=== PATIENT | female | born 1950 | race Caucasian/White ===

== ENCOUNTER → 2020-06-04 10:08 | Outpatient (BNVA) | payer MEDICARE, SELFPAY | PROVIDERS: PCP Family Medicine; Visit Provider Surgery | DX: Z01.812 Encounter for preprocedural laboratory examination (principal); Z12.11 Encounter for screening for malignant neoplasm of colon | CPT/HCPCS: 87635 ==

== ENCOUNTER 2020-06-09 07:19 | Day surgery (SDC) | payer MEDICARE, SELFPAY ==
[2020-06-05 13:34] VITALS: BMI 34.8
--- NOTE | 2020-06-09 07:40 | P.HP_ITS ---
Same Day Surgery H&P Indication for Procedure/HPI DATE OF PROCEDURE: June 09, 2020 CHIEF COMPLAINT/INDICATIONFOR SURGICAL PROCEDURE: Screening colonoscopy PREOP DIAGNOSIS: Screening colonoscopy PLANNED PROCEDRUE: Operation Date: 06/09/20 08:30 Proposed Procedures p Colonoscopy 09153 Z12.11(Not Applicable) - Buddy Mckenzie MD This is a pleasant 70 years old male referred to my practice for screening colonoscopy, patient reports that he had 4 colonoscopies before last one was about 8 years ago and he does give history of colon polyps in the past. He reports that he has some blood coming with his hemorrhoids but no history of colon cancer. Patient is referred to my practice for colonoscopy. ROS All systems have been reviewed negative except as per the above or per problem list Medications/Allergies* Home Medications Medication Instructions Recorded Confirmed Type apixaban 5 mg tablet 5 mg PO BID 06/02/20 06/05/20 History donepezil 10 mg tablet 10 mg PO DAILY 06/02/20 06/05/20 History glipizide 10 mg tablet 10 mg PO BID 06/02/20 06/05/20 History insulin glargine 100 unit/mL (3 60 unit SUBCUT BID ml 06/02/20 06/05/20 History mL) subcutaneous pen levothyroxine 112 mcg capsule 112 mcg PO DAILY 06/02/20 06/05/20 History lisinopril 10 mg tablet 10 mg PO DAILY 06/02/20 06/05/20 History metformin 500 mg tablet 500 mg PO BID 06/02/20 06/05/20 History testosterone cypionate 100 mg/mL 100 mg IM .2 Weeks ml 06/02/20 06/05/20 History intramuscular oil gabapentin 600 mg PO BID 06/05/20 06/05/20 History hydrochlorothiazide 25 mg PO DAILY 06/05/20 06/05/20 History rosuvastatin 10 mg PO DAILY 06/05/20 06/05/20 History Allergies/Adverse Reactions Allergy/AdvReac Type Severity Reaction Status Date / Time sulfamethoxazole Allergy Rash Verified 06/09/20 07:43 [From Bactrim] trimethoprim [From Bactrim] Allergy Rash Verified 06/09/20 07:43 Pertinent Exam Findings alert, oriented x 3, clear to auscultation bilaterally, regular rate & rhythm and procedure specific exam findings (Abdominal examination nontender nondistended soft, obese) Recommendations Surgery/Procedure today (Colonoscopy with possible biopsy and possible polypectomy) Other Plans: Plan of care; After thorough history and physical examination and reviewing the chart, plan to perform screening colonoscopy in the GI lab. I discussed with the patient in details the risks,benefits,alternatives and indications.The risk of aspiration, bleeding, soft tissue injury, perforation of the colon and other potential concomitant complications were explained to the patient in details.The patient understood this well and did agree to proceed. Rationale was carefully and clearly discussed with the patient.Appropriate informed consent have been reviewed and signed All questions have been answered and all concerns have been addressed to patient's satisfaction. Verbal and written Instructions were given to the patient for colonoscopy prep Coding Level of Care Code Acute [employer] for Laila Garbiay
[2020-06-09 07:45] VITALS: BP 139/78; PULSE 68; RESP 18; TEMP 36.3; O2SAT 98
[2020-06-09] MEDS: sodium chloride 0.9% 1,000 ML 30 ML IV (07:51)
[2020-06-09 08:03] LABS: Glucose Point of Care 196 mg/dL (70-110)
[2020-06-09 08:14] VITALS: BP 102/62; PULSE 72; RESP 18; TEMP 36.1; O2SAT 96
--- NOTE | 2020-06-09 08:33 | ANES.PREANE2 ---
Pre-Anesthetic Assessment Pre-Anesthetic Assessment: Height/Weight: Height 1.8 m Weight 113.398 kg Temp Pulse Resp BP Pulse Ox 97 F L 72 18 102/62 96 06/09/20 08:14 06/09/20 08:14 06/09/20 08:14 06/09/20 08:14 06/09/20 08:14 Preop Diagnosis: Screening colonoscopy Proposed Procedure: Operation Date: 06/09/20 08:30 Proposed Procedures p Colonoscopy 80932 Z12.11(Not Applicable) - Buddy Mckenzie MD Was Beta Araceli taken within 24 hours: N/A Last intake: Intake Last Liquid Date 06/08/20 Last Liquid Time 19:00 Last Solid Date 06/07/20 Social: Social History: No alcohol and No tobacco Exam: Pre-Anes Outpt Exam: alert, oriented x 3, clear to auscultation bilaterally and regular rate & rhythm Airway: Submandibular: WNL Cervical ROM: WNL MP: 3 Dentition: Full Pulmonary: Pulmonary: COPD and Sleep apnea Comments: Smokes cigars CV/HEM: CV/HEM: HTN Metabolic: Metabolic: DM, Morbid obesity and Thyroid Anesthetic Plan: ASA status: 3 Anesthesia: MAC Risk of > 500 ml blood loss (7ml/kg in children): No Meds/Allergies Current Medications: Current Medications Generic Name Dose Route Start Last Admin Trade Name Freq PRN Reason Stop Dose Admin Sodium Chloride 1,000 mls @ 30 ml s/hr 06/09/20 07:45 06/09/20 07:51 Sodium Chloride 0.9% IV 06/10/20 07:44 30 mls/hr .Q24H SABAS Administration Data Anesthesia Other Labs: Laboratory Results - last 48 hr 06/09/20 07:59 POC Glucose 196 H Cardiac Studies: No Data to Display
[2020-06-09 08:49] VITALS: BP 140/73; PULSE 70; RESP 16; TEMP 36.4; O2SAT 97
[2020-06-09 09:01] VITALS: BP 132/77; PULSE 57; RESP 16; O2SAT 95
--- NOTE | 2020-06-09 13:22 | ANE.PACU2 ---
Inpatient post-anesthesia follow up: Airway intact: Yes Vital signs: Temperature 97.6 F Pulse Rate 57 Respiratory Rate 16 Blood Pressure 132/77 Pulse Oximetry 95 Oxygen Delivery Me thod Room Air Oxygen Flow Rate Fraction of Inspir ed Oxygen Hydration adequate: Yes Nausea and vomiting: No Pain level: 1 Mental status: Baseline
== END 2020-06-09 09:25 | disposition home or self-care (01) ==
PROVIDERS: PCP Family Medicine; Visit Provider Surgery
PROC: 0DJD8ZZ Inspection of Lower Intestinal Tract, Via Natural or Artificial Opening Endoscopic (ICD-10-PCS; CPT 45378; principal; 2020-06-09 08:30)
DX: Z12.11 Encounter for screening for malignant neoplasm of colon (principal); Z86.010 Personal history of colon polyps; K57.30 Diverticulosis of large intestine without perforation or abscess without bleeding; D12.2 Benign neoplasm of ascending colon; D12.8 Benign neoplasm of rectum; J44.9 Chronic obstructive pulmonary disease, unspecified; G47.30 Sleep apnea, unspecified; I10 Essential (primary) hypertension; E11.9 Type 2 diabetes mellitus without complications; E66.01 Morbid (severe) obesity due to excess calories; Z68.34 Body mass index [BMI] 34.0-34.9, adult
CPT/HCPCS: 12345; 36416; 45380; 82962; 88305; J2704; J7030

== ENCOUNTER 2020-07-28 06:53 | Outpatient (CLI) | payer MEDICARE, SELFPAY ==
--- NOTE | 2020-07-28 07:09 | US_ITS ---
WS: [id number] ULTRASOUND RENAL TECHNIQUE: Ultrasound examination of both kidneys. CLINICAL INFORMATION: RIGHT FLANK PAIN COMPARISON: None. FINDINGS: RIGHT: Right kidney is normal in size and appearance. Echogenicity: Normal. Cortical thickness: 1.9 cm; Normal. Hydronephrosis: None. Perinephric fluid: None. Right kidney measures: 14.5 cm x 4.5 cm x 5.6 cm. LEFT: Left kidney is normal in size and appearance. Echogenicity: Normal. Cortical thickness: 1.3 cm; Normal. Hydronephrosis: None. Perinephric fluid: None. Left kidney measures: 13.9 cm x 6.2 cm x 4.1 cm. Normal visualized aorta. Bladder decompressed. Prostate measures 4.2 x 4.3 x 3.3 cm US/US renal BI* [id number] IMPRESSION: 1. Normal renal ultrasound. 2. Enlarged prostate. Recommend correlation PSA.
== END 2020-07-28 06:54 | disposition home or self-care (01) ==
LOC: RAD 07:05
PROVIDERS: PCP Family Medicine; Visit Provider Registered Nurse
DX: R10.9 Unspecified abdominal pain (principal); N40.0 Benign prostatic hyperplasia without lower urinary tract symptoms
CPT/HCPCS: 76770; 76857

== ENCOUNTER 2020-07-29 13:39 | Observation (INO) | payer MEDICARE, SELFPAY ==
[2020-07-29] VITALS (11 sets, daily range): BP systolic 122–158; BP diastolic 58–85; PULSE 78–130; RESP 13–25; TEMP 37.3–37.6; O2SAT 93–99; BMI 36.5
--- NOTE | 2020-07-29 13:41 | XR_ITS ---
WS: [id number] XR chest 1V portable [id number] REASON FOR EXAM: chest pain FINDINGS: Mild tortuosity of the thoracic aorta without aneurysmal dilatation. Normal heart size. Calcified granulomatous changes in both hemithoraces. No active pulmonary parenchymal or pleural disease. Degenerative changes in the right shoulder joint and mid and lower thoracic spine. XR/XR chest 1V portable [id number] IMPRESSION: No acute chest abnormality.
--- NOTE | 2020-07-29 13:41 | ECG_ITS ---
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 Measurements Intervals [place] Rate: 103 P: 61 DC: 174 QRS: 0 QRSD: 94 T: 76 QT: 331 QTc: 434 Interpretive Statements SINUS TACHYCARDIA NONSPECIFIC T-WAVE ABNORMALITY ABNORMAL RHYTHM ECG No previous ECG available for comparison Electronically Signed On 07-30-2020 7:35:41 CDT by Rena Silver M.D. [email or web address]
--- NOTE | 2020-07-29 14:00 | ED_ITS ---
Documented by User: DANIELLE Vargas 07/30/20 07:13 HPI - Arrhythmia/Palpitations General: Chief Complaint: Arrhythmia/Palpitations Stated Complaint: CP, HEART PALPITATIONS, NAUSEA, DIZZY, SWEATING Time Seen by Provider: 07/29/20 13:47 Source: patient Mode of arrival: ambulatory Limitations: no limitations History of Present Illness: HPI narrative: Patient is a nice 70-year-old male with a history of HTN, DM, hypothyroidism, hyperlipidemia, low testosterone currently on TRT, and known left lower extremity DVT currently on Eliquis here for complaints of nausea and lightheadedness and palpitations. Patient tells me he woke up this morning and did not feel well. He tells me he felt incredibly nauseous and lightheaded. He did not check his blood sugar at that time. 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 He tells me symptoms improved after he sat down and rested. Patient denies any previous cardiac history. He tells me had a stress test in January 2020 in [place], [place] that was normal. Patient denies chest pain or chest pressure. He tells me he does not currently feel short of breath. MD complaint: rapid heart beat, heart racing and palpitations Onset (ago): hour(s) Duration: now resolved Severity: moderate Context: occurred during exertion Arrhythmia history: on anti-coagulants Associated symptoms: Reports nausea; Deny pre-syncope, syncope or vomiting Review of Systems Const: Denies: fever(s), chills, body aches, fatigue or malaise Eyes: Denies: change in vision or blurry vision Card: Reports: palpitations, swelling of feet/ankles (chronic-at baseline per patient), lightheadedness and dyspnea on exertion; Denies: chest pain, irregular heart rhythm, syncope, pre-syncope, orthopnea, leg pain with exertion or acrocyanosis Resp: Reports: dyspnea; Denies: productive cough, non-productive cough, wheezing, pain on inspiration, change in phlegm color, hemoptysis or chest congestion GI: Reports: nausea; Denies: abdominal pain, vomiting or diarrhea : Denies: flank pain, difficulty urinating or dysuria Musc: Denies: neck pain, back pain or joint pain Skin/Breast: Denies: rash Neuro: Denies: headache(s), numbness in extremities, weakness in extremities, sensory changes, difficulty walking, dizziness, confusion or Slurred speech present [facility] ED PFSH: Medical History (Updated 07/29/20 @ 22:20 by John Maza MD) Colon polyps Social History (Updated 07/23/20 @ 13:21 by Mi Sierra LPN) Smoking and tobacco status: current every day smoker Alcohol intake: former Physical Exam Const: COMMON NORMALS: patient oriented x3, no limitations and alert GENERAL APPEARANCE: cooperative NUTRITIONAL APPEARANCE: obese ORIENTATION/CONSCIOUSNESS: Yes awake, Yes oriented to person, Yes oriented to place and Yes oriented to time OTHER: looks like he doesn't feel well HENMT: COMMON NORMALS: normocephalic and atraumatic HEAD & SCALP: normocephalic and atraumatic Eye: COMMON NORMALS: Equal, round and reactive pupils present and EOMs intact bilaterally GENERAL EYE: appearance normal, both eyes and all related structures PUPIL: Yes Equal, round and reactive pupils present Resp: COMMON NORMALS: normal respiratory effort and clear to auscultation bilaterally AUSCULTATION: clear to auscultation bilaterally Cardio: COMMON NORMALS: regular rate and regular rhythm RATE: regular rate RHYTHM: regular rhythm GI: COMMON NORMALS: Normal to inspection, nondistended, normoactive bowel sounds present, Soft to palpation, non-tender, No hepatosplenomegaly present and no masses PALPATION: Yes Soft to palpation and Yes No hepatosplenomegaly present Extremity: COMMON NORMALS: normal to inspection NARRATIVE EXTREMITY EXAM: very mild bilateral LE edema; mild tenderness to L calf at area of known DVT GENERAL: Yes normal exam except as noted Neuro: ANN COMA SCALE: document GCS findings Ann coma scale eye opening: Spontaneous Ann coma scale verbal response: Orientated Ann coma scale motor response: Obey commands [place] coma scale total score: 15 COMMON NORMALS: patient oriented x3 SENSORIUM/ORIENTATION: Yes alert, Yes oriented to person, Yes oriented to place and Yes oriented to time Skin: COMMON NORMALS: no rashes or lesions noted GENERAL SKIN EXAM: no rashes or lesions noted Course ED course: Incident report filed at baseline troponin was not ran until several hours into his visit and a long time after all other labs had returned. Vital Signs: Vital signs: Vital Signs Temperature 100.0 F H 07/30/20 03:35 Pulse Rate 78 07/30/20 06:34 Respiratory Rate 20 H 07/30/20 03:35 Blood Pressure 114/66 07/30/20 03:35 Pulse Oximetry 95 07/30/20 06:34 MDM - Arrhythmia/Palpitations MDM Narrative: Medical decision making narrative: Patient presented here today with complaints of nausea, lightheadedness, and an episode of shortness of breath and palpitations that happened at work with exertion. Patient does have significant risk factors of DM, HTN, and obesity. CTA imaging was obtained based on known left lower extremity DVT. This was negative for a PE. Baseline troponin is elevated. Pending repeat trop. EKGs do not show any ischemic changes. He has mild elevations to his BUN/Cr. He has been tachycardic during his stay. Low-grade fevers. Care will be transferred to Dr. Maza at the end of my shift pending remainder of work-up. I think patient would benefit from coming into the hospital at this time. Lab Data: Labs: Lab Results 07/29/20 07/29/20 07/29/20 Range/Units 14:08 14:08 14:08 WBC 11.0 H (4.0-10.0) 10^3/ uL RBC 4.71 (4.1-5.3) 10^6/u L Hgb 14.6 (11.7-16.6) g/dL Hct 43.2 (42.0-52.0) % MCV 91.7 (80-94) fL MCH 31.0 (28.0-34.0) pg MCHC 33.8 (30.0-36.0) g/dL RDW 11.9 L (12.1-15.1) % Plt Count 201 (130-400) 10^3/c mm MPV 10.5 H (7.4-10.4) fL Neut % (Auto) 90.6 % Lymph % (Auto) 3.1 % [place] % (Auto) 4.9 % Eos % (Auto) 0.7 % Baso % (Auto) 0.3 % Neut # (Auto) 9.94 H (1.8-7.7) 10^3/u L Lymph # (Auto) 0.3 L (0.8-4.8) 10^3/u L [place] # (Auto) 0.5 (0.2-0.9) 10^3/u L Eos # (Auto) 0.1 (0.0-0.8) 10^3/u L Baso # (Auto) 0.0 (0.0-0.1) 10^3/u L Nucleated RBC % (a uto) 0 % Nucleated RBCs # 0.0 /100WBC Sodium Cancelled Potassium Cancelled Chloride Cancelled Carbon Dioxide Cancelled Anion Gap Cancelled BUN Cancelled Creatinine Cancelled GFR Calculation Cancelled Glucose Cancelled Calculated Osmolal ity Cancelled Lactic Acid Calcium Cancelled Total Bilirubin Cancelled AST Cancelled ALT Cancelled Alkaline Phosphata se Cancelled Creatine Kinase (39-308) U/L Troponin T Baselin e Cancelled Troponin T 120 Min tangirnaq (0-15) ng/L Delta Troponin T (0-10) ABS# Troponin T Hi Sens 6Hr (0-15) ng/L Troponin T Hi Sens 6Hr Delta (0-12) ng/L NT-Pro-B Natriuret Pep Cancelled Total Protein Cancelled Albumin Cancelled Globulin Cancelled Lipase (13-60) U/L TSH Cancelled Urine Color (Yellow) Urine Appearance (CLEAR) Urine pH (5-7) Ur Specific Gravit y (1.005-1.030) Urine Protein (Negative) Urine Glucose (UA) (Normal) Urine Ketones (Negative) Urine Blood (Negative) Urine Nitrate (Negative) Urine Bilirubin (Negative) Urine Urobilinogen (Negative) mg/dL Ur Leukocyte Willow ase (Negative) Serum Ketones (Negative) SARS-CoV-2 Ag (Rap id) (Negative) 07/29/20 07/29/20 07/29/20 Range/Units 14:08 14:10 14:15 WBC (4.0-10.0) 10^3/ uL RBC (4.1-5.3) 10^6/u L Hgb (11.7-16.6) g/dL Hct (42.0-52.0) % MCV (80-94) fL MCH (28.0-34.0) pg MCHC (30.0-36.0) g/dL RDW (12.1-15.1) % Plt Count (130-400) 10^3/c mm MPV (7.4-10.4) fL Neut % (Auto) % Lymph % (Auto) % [place] % (Auto) % Eos % (Auto) % Baso % (Auto) % Neut # (Auto) (1.8-7.7) 10^3/u L Lymph # (Auto) (0.8-4.8) 10^3/u L [place] # (Auto) (0.2-0.9) 10^3/u L Eos # (Auto) (0.0-0.8) 10^3/u L Baso # (Auto) (0.0-0.1) 10^3/u L Nucleated RBC % (a uto) % Nucleated RBCs # /100WBC Sodium Potassium Chloride Carbon Dioxide Anion Gap BUN Creatinine GFR Calculation Glucose Calculated Osmolal ity Lactic Acid Cancelled 1.9 Calcium Total Bilirubin AST ALT Alkaline Phosphata se Creatine Kinase (39-308) U/L Troponin T Baselin e Troponin T 120 Min tangirnaq (0-15) ng/L Delta Troponin T (0-10) ABS# Troponin T Hi Sens 6Hr (0-15) ng/L Troponin T Hi Sens 6Hr Delta (0-12) ng/L NT-Pro-B Natriuret Pep Total Protein Albumin Globulin Lipase (13-60) U/L TSH Urine Color (Yellow) Urine Appearance (CLEAR) Urine pH (5-7) Ur Specific Gravit y (1.005-1.030) Urine Protein (Negative) Urine Glucose (UA) (Normal) Urine Ketones (Negative) Urine Blood (Negative) Urine Nitrate (Negative) Urine Bilirubin (Negative) Urine Urobilinogen (Negative) mg/dL Ur Leukocyte Willow ase (Negative) Serum Ketones (Negative) SARS-CoV-2 Ag (Rap id) Negative (Negative) 07/29/20 07/29/20 07/29/20 Range/Units 14:30 14:30 17:00 WBC (4.0-10.0) 10^3/ uL RBC (4.1-5.3) 10^6/u L Hgb (11.7-16.6) g/dL Hct (42.0-52.0) % MCV (80-94) fL MCH (28.0-34.0) pg MCHC (30.0-36.0) g/dL RDW (12.1-15.1) % Plt Count (130-400) 10^3/c mm MPV (7.4-10.4) fL Neut % (Auto) % Lymph % (Auto) % [place] % (Auto) % Eos % (Auto) % Baso % (Auto) % Neut # (Auto) (1.8-7.7) 10^3/u L Lymph # (Auto) (0.8-4.8) 10^3/u L [place] # (Auto) (0.2-0.9) 10^3/u L Eos # (Auto) (0.0-0.8) 10^3/u L Baso # (Auto) (0.0-0.1) 10^3/u L Nucleated RBC % (a uto) % Nucleated RBCs # /100WBC Sodium 133 L Potassium 4.7 Chloride 95 L Carbon Dioxide 25 Anion Gap 17.7 BUN 21 Creatinine 1.3 H GFR Calculation 54.7 L Glucose 238 H Calculated Osmolal ity 287 Lactic Acid Calcium 9.1 Total Bilirubin 0.6 AST 46 H ALT 73 H Alkaline Phosphata se 72 Creatine Kinase (39-308) U/L Troponin T Baselin e 21 H Troponin T 120 Min tangirnaq 20.94 H (0-15) ng/L Delta Troponin T -0.06 L (0-10) ABS# Troponin T Hi Sens 6Hr (0-15) ng/L Troponin T Hi Sens 6Hr Delta (0-12) ng/L NT-Pro-B Natriuret Pep 17 Total Protein 7.3 Albumin 4.4 Globulin 2.9 Lipase (13-60) U/L TSH 0.79 Urine Color (Yellow) Urine Appearance (CLEAR) Urine pH (5-7) Ur Specific Gravit y (1.005-1.030) Urine Protein (Negative) Urine Glucose (UA) (Normal) Urine Ketones (Negative) Urine Blood (Negative) Urine Nitrate (Negative) Urine Bilirubin (Negative) Urine Urobilinogen (Negative) mg/dL Ur Leukocyte Willow ase (Negative) Serum Ketones (Negative) SARS-CoV-2 Ag (Rap id) (Negative) 07/29/20 07/29/20 07/29/20 Range/Units 17:00 17:00 17:50 WBC (4.0-10.0) 10^3/ uL RBC (4.1-5.3) 10^6/u L Hgb (11.7-16.6) g/dL Hct (42.0-52.0) % MCV (80-94) fL MCH (28.0-34.0) pg MCHC (30.0-36.0) g/dL RDW (12.1-15.1) % Plt Count (130-400) 10^3/c mm MPV (7.4-10.4) fL Neut % (Auto) % Lymph % (Auto) % [place] % (Auto) % Eos % (Auto) % Baso % (Auto) % Neut # (Auto) (1.8-7.7) 10^3/u L Lymph # (Auto) (0.8-4.8) 10^3/u L [place] # (Auto) (0.2-0.9) 10^3/u L Eos # (Auto) (0.0-0.8) 10^3/u L Baso # (Auto) (0.0-0.1) 10^3/u L Nucleated RBC % (a uto) % Nucleated RBCs # /100WBC Sodium Potassium Chloride Carbon Dioxide Anion Gap BUN Creatinine GFR Calculation Glucose Calculated Osmolal ity Lactic Acid Calcium Total Bilirubin AST ALT Alkaline Phosphata se Creatine Kinase (39-308) U/L Troponin T Baselin e Troponin T 120 Min tangirnaq (0-15) ng/L Delta Troponin T (0-10) ABS# Troponin T Hi Sens 6Hr (0-15) ng/L Troponin T Hi Sens 6Hr Delta (0-12) ng/L NT-Pro-B Natriuret Pep Total Protein Albumin Globulin Lipase 17 (13-60) U/L TSH Urine Color Gwen (Yellow) Urine Appearance Clear (CLEAR) Urine pH 5 (5-7) Ur Specific Gravit y 1.020 (1.005-1.030) Urine Protein Neg (Negative) Urine Glucose (UA) 2+ (Normal) Urine Ketones 1+ H (Negative) Urine Blood Neg (Negative) Urine Nitrate Negative (Negative) Urine Bilirubin 1+ H (Negative) Urine Urobilinogen 1 H (Negative) mg/dL Ur Leukocyte Willow ase Negative (Negative) Serum Ketones Negative (Negative) SARS-CoV-2 Ag (Rap id) (Negative) 07/29/20 07/29/20 Range/Units 20:37 20:37 WBC (4.0-10.0) 10^3/ uL RBC (4.1-5.3) 10^6/u L Hgb (11.7-16.6) g/dL Hct (42.0-52.0) % MCV (80-94) fL MCH (28.0-34.0) pg MCHC (30.0-36.0) g/dL RDW (12.1-15.1) % Plt Count (130-400) 10^3/c mm MPV (7.4-10.4) fL Neut % (Auto) % Lymph % (Auto) % [place] % (Auto) % Eos % (Auto) % Baso % (Auto) % Neut # (Auto) (1.8-7.7) 10^3/u L Lymph # (Auto) (0.8-4.8) 10^3/u L [place] # (Auto) (0.2-0.9) 10^3/u L Eos # (Auto) (0.0-0.8) 10^3/u L Baso # (Auto) (0.0-0.1) 10^3/u L Nucleated RBC % (a uto) % Nucleated RBCs # /100WBC Sodium Potassium Chloride Carbon Dioxide Anion Gap BUN Creatinine GFR Calculation Glucose Calculated Osmolal ity Lactic Acid Calcium Total Bilirubin AST ALT Alkaline Phosphata se Creatine Kinase 410 H* (39-308) U/L Troponin T Baselin e Troponin T 120 Min tangirnaq (0-15) ng/L Delta Troponin T (0-10) ABS# Troponin T Hi Sens 6Hr 18.92 H (0-15) ng/L Troponin T Hi Sens 6Hr Delta -2.08 L (0-12) ng/L NT-Pro-B Natriuret Pep Total Protein Albumin Globulin Lipase (13-60) U/L TSH Urine Color (Yellow) Urine Appearance (CLEAR) Urine pH (5-7) Ur Specific Gravit y (1.005-1.030) Urine Protein (Negative) Urine Glucose (UA) (Normal) Urine Ketones (Negative) Urine Blood (Negative) Urine Nitrate (Negative) Urine Bilirubin (Negative) Urine Urobilinogen (Negative) mg/dL Ur Leukocyte Willow ase (Negative) Serum Ketones (Negative) SARS-CoV-2 Ag (Rap id) (Negative) Imaging Data^: CXR: Radiologist's impression: [address] [address] XRay Report Signed Patient: Bill PatelUnit #: [id number] : 1950cct#:[id number] Age/Sex: 70 / MADM Date: 07/29/20 Loc: ERRoom/Bed: Attending Dr: Ordering Provider/Ordering MD: Atiya Rich Date of Service: 07/29/20 Procedure(s): XR chest 1V portable [id number] Accession Number(s): [id number] Report Number: [id number] WS: [id number] XR chest 1V portable [id number] REASON FOR EXAM: chest pain FINDINGS: Mild tortuosity of the thoracic aorta without aneurysmal dilatation. Normal heart size. Calcified granulomatous changes in both hemithoraces. No active pulmonary parenchymal or pleural disease. Degenerative changes in the right shoulder joint and mid and lower thoracic spine. XR/XR chest 1V portable [id number] IMPRESSION: No acute chest abnormality. Dictated By:Alexander Pelaez Jr, MD Signed By:Alexander Pelaez Jr MDSigned Date/Time:07/29/20 1423 DD/ 1419 CTA Chest: Radiologist's impression: [address] [address] [address] Scan Report Signed Patient: Bill Patel Unit #: [id number] : 1950 Age/Sex: 70 / M ADM Date: 07/29/20 Loc: ER Room/Bed: Attending Dr: Ordering Provider/Ordering MD: Atiya Rich Date of Service: 07/29/20 Procedure(s): CT angio chest PE protcl [id number] Accession Number(s): [id number] Report Number: [id number] PROCEDURE INFORMATION: Exam: CT Angiography Chest With Contrast Exam date and time: 07/29/2020 4:15 PM Age: 70 years old Clinical indication: Shortness of breath; Additional info: Sob/tachcardia/known dvt TECHNIQUE: Imaging protocol: Computed tomographic angiography of the chest with contrast. 3D rendering (Not supervised by radiologist): MIP and/or 3D reconstructed images were created by the technologist. Radiation optimization: All CT scans at this facility use at least one of these dose optimization techniques: automated exposure control; mA and/or kV adjustment per patient size (includes targeted exams where dose is matched to clinical indication); or iterative reconstruction. Contrast material: VISI 320; Contrast volume: 68 ml; Contrast route: INTRAVENOUS (IV); COMPARISON: CR XR chest 1V portable [id number] 07/29/2020 1:57 PM RADIATION DOSE METRICS: Total DLP (mGy-cm): 575.39 FINDINGS: Pulmonary arteries: Normal. No pulmonary emboli. Aorta: Unremarkable. No aortic aneurysm. No aortic dissection. Lungs: Unremarkable. No consolidation. No masses. Pleural spaces: Unremarkable. No pneumothorax. No pleural effusion. Heart: Unremarkable. No cardiomegaly. No pericardial effusion. Lymph nodes: Unremarkable. No enlarged lymph nodes. Bones/joints: Unremarkable. No acute fracture. Soft tissues: Unremarkable. CT/CT angio chest PE protcl [id number] IMPRESSION: No acute findings. Radiation Dose CTDIVOL = (mGy): DLP = 575.39 (mGy-cm) Dictated By: Antoni Louis Signed By: Antoni Louis Signed Date/Time: 07/29/201655 DD/ 53 EKG Data^: EKG 1: EKG interpretation date: 07/29/20 EKG interpretation time: 13:50 Interpretation: Sinus tachycardia Rate [address] elevation or depression changes noted Also reviewed by Dr. Maza Other EKG comments: Chest X-Ray 07/29/20 13:41 IMPRESSION: No acute chest abnormality. Chest CTA 07/29/20 13:59 IMPRESSION: No acute findings. Radiation Dose CTDIVOL = (mGy): DLP = 575.39 (mGy-cm) Abdomen/Pelvis CT 07/29/20 18:41 IMPRESSION: No focal acute pathology in the abdomen or pelvis identified. 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 Comprehensive Documented by User: John Maza MD 07/29/20 22:22 HPI - Arrhythmia/Palpitations General: Chief Complaint: Arrhythmia/Palpitations Stated Complaint: CP, HEART PALPITATIONS, NAUSEA, DIZZY, SWEATING Time Seen by Provider: 07/29/20 13:47 PFSH ED PFSH: Medical History (Updated 07/29/20 @ 22:20 by John Maza MD) Colon polyps Social History (Updated 07/23/20 @ 13:21 by Mi Sierra LPN) Smoking and tobacco status: current every day smoker Alcohol intake: former Course Vital Signs: Vital signs: Vital Signs Temperature 100.0 F H 07/30/20 03:35 Pulse Rate 78 07/30/20 06:34 Respiratory Rate 20 H 07/30/20 03:35 Blood Pressure 114/66 07/30/20 03:35 Pulse Oximetry 95 07/30/20 06:34 MDM - Arrhythmia/Palpitations MDM Narrative: Medical decision making narrative: Handed off this patient at shift change by Ms. Rich. The patient was now complaining of flank pain and has a history of stones and was scanned. CT abdomen pelvis was negative for any acute pathology. Reviewed his labs and he does have some slight abnormalities of elevated creatinine, tachycardia, slight leukocytosis, slightly elevated temperature. He continues to complain of upper abdominal pain, severe nausea, flushing in his face and fever. Which despite multi antiemetics we were unable to improve his nausea and he will not eat. We will keep him overnight for antiemetics, antipyretics, IV fluids and observation. Discussed with Dr. Randolph who accepts Lab Data: Labs: Lab Results 07/29/20 07/29/20 07/29/20 Range/Units 14:08 14:08 14:08 WBC 11.0 H (4.0-10.0) 10^3/ uL RBC 4.71 (4.1-5.3) 10^6/u L Hgb 14.6 (11.7-16.6) g/dL Hct 43.2 (42.0-52.0) % MCV 91.7 (80-94) fL MCH 31.0 (28.0-34.0) pg MCHC 33.8 (30.0-36.0) g/dL RDW 11.9 L (12.1-15.1) % Plt Count 201 (130-400) 10^3/c mm MPV 10.5 H (7.4-10.4) fL Neut % (Auto) 90.6 % Lymph % (Auto) 3.1 % [place] % (Auto) 4.9 % Eos % (Auto) 0.7 % Baso % (Auto) 0.3 % Neut # (Auto) 9.94 H (1.8-7.7) 10^3/u L Lymph # (Auto) 0.3 L (0.8-4.8) 10^3/u L [place] # (Auto) 0.5 (0.2-0.9) 10^3/u L Eos # (Auto) 0.1 (0.0-0.8) 10^3/u L Baso # (Auto) 0.0 (0.0-0.1) 10^3/u L Nucleated RBC % (a uto) 0 % Nucleated RBCs # 0.0 /100WBC Sodium Cancelled Potassium Cancelled Chloride Cancelled Carbon Dioxide Cancelled Anion Gap Cancelled BUN Cancelled Creatinine Cancelled GFR Calculation Cancelled Glucose Cancelled Calculated Osmolal ity Cancelled Lactic Acid Calcium Cancelled Total Bilirubin Cancelled AST Cancelled ALT Cancelled Alkaline Phosphata se Cancelled Creatine Kinase (39-308) U/L Troponin T Baselin e Cancelled Troponin T 120 Min tangirnaq (0-15) ng/L Delta Troponin T (0-10) ABS# Troponin T Hi Sens 6Hr (0-15) ng/L Troponin T Hi Sens 6Hr Delta (0-12) ng/L NT-Pro-B Natriuret Pep Cancelled Total Protein Cancelled Albumin Cancelled Globulin Cancelled Lipase (13-60) U/L TSH Cancelled Urine Color (Yellow) Urine Appearance (CLEAR) Urine pH (5-7) Ur Specific Gravit y (1.005-1.030) Urine Protein (Negative) Urine Glucose (UA) (Normal) Urine Ketones (Negative) Urine Blood (Negative) Urine Nitrate (Negative) Urine Bilirubin (Negative) Urine Urobilinogen (Negative) mg/dL Ur Leukocyte Willow ase (Negative) Serum Ketones (Negative) SARS-CoV-2 Ag (Rap id) (Negative) 07/29/20 07/29/20 07/29/20 Range/Units 14:08 14:10 14:15 WBC (4.0-10.0) 10^3/ uL RBC (4.1-5.3) 10^6/u L Hgb (11.7-16.6) g/dL Hct (42.0-52.0) % MCV (80-94) fL MCH (28.0-34.0) pg MCHC (30.0-36.0) g/dL RDW (12.1-15.1) % Plt Count (130-400) 10^3/c mm MPV (7.4-10.4) fL Neut % (Auto) % Lymph % (Auto) % [place] % (Auto) % Eos % (Auto) % Baso % (Auto) % Neut # (Auto) (1.8-7.7) 10^3/u L Lymph # (Auto) (0.8-4.8) 10^3/u L [place] # (Auto) (0.2-0.9) 10^3/u L Eos # (Auto) (0.0-0.8) 10^3/u L Baso # (Auto) (0.0-0.1) 10^3/u L Nucleated RBC % (a uto) % Nucleated RBCs # /100WBC Sodium Potassium Chloride Carbon Dioxide Anion Gap BUN Creatinine GFR Calculation Glucose Calculated Osmolal ity Lactic Acid Cancelled 1.9 Calcium Total Bilirubin AST ALT Alkaline Phosphata se Creatine Kinase (39-308) U/L Troponin T Baselin e Troponin T 120 Min tangirnaq (0-15) ng/L Delta Troponin T (0-10) ABS# Troponin T Hi Sens 6Hr (0-15) ng/L Troponin T Hi Sens 6Hr Delta (0-12) ng/L NT-Pro-B Natriuret Pep Total Protein Albumin Globulin Lipase (13-60) U/L TSH Urine Color (Yellow) Urine Appearance (CLEAR) Urine pH (5-7) Ur Specific Gravit y (1.005-1.030) Urine Protein (Negative) Urine Glucose (UA) (Normal) Urine Ketones (Negative) Urine Blood (Negative) Urine Nitrate (Negative) Urine Bilirubin (Negative) Urine Urobilinogen (Negative) mg/dL Ur Leukocyte Willow ase (Negative) Serum Ketones (Negative) SARS-CoV-2 Ag (Rap id) Negative (Negative) 07/29/20 07/29/20 07/29/20 Range/Units 14:30 14:30 17:00 WBC (4.0-10.0) 10^3/ uL RBC (4.1-5.3) 10^6/u L Hgb (11.7-16.6) g/dL Hct (42.0-52.0) % MCV (80-94) fL MCH (28.0-34.0) pg MCHC (30.0-36.0) g/dL RDW (12.1-15.1) % Plt Count (130-400) 10^3/c mm MPV (7.4-10.4) fL Neut % (Auto) % Lymph % (Auto) % [place] % (Auto) % Eos % (Auto) % Baso % (Auto) % Neut # (Auto) (1.8-7.7) 10^3/u L Lymph # (Auto) (0.8-4.8) 10^3/u L [place] # (Auto) (0.2-0.9) 10^3/u L Eos # (Auto) (0.0-0.8) 10^3/u L Baso # (Auto) (0.0-0.1) 10^3/u L Nucleated RBC % (a uto) % Nucleated RBCs # /100WBC Sodium 133 L Potassium 4.7 Chloride 95 L Carbon Dioxide 25 Anion Gap 17.7 BUN 21 Creatinine 1.3 H GFR Calculation 54.7 L Glucose 238 H Calculated Osmolal ity 287 Lactic Acid Calcium 9.1 Total Bilirubin 0.6 AST 46 H ALT 73 H Alkaline Phosphata se 72 Creatine Kinase (39-308) U/L Troponin T Baselin e 21 H Troponin T 120 Min tangirnaq 20.94 H (0-15) ng/L Delta Troponin T -0.06 L (0-10) ABS# Troponin T Hi Sens 6Hr (0-15) ng/L Troponin T Hi Sens 6Hr Delta (0-12) ng/L NT-Pro-B Natriuret Pep 17 Total Protein 7.3 Albumin 4.4 Globulin 2.9 Lipase (13-60) U/L TSH 0.79 Urine Color (Yellow) Urine Appearance (CLEAR) Urine pH (5-7) Ur Specific Gravit y (1.005-1.030) Urine Protein (Negative) Urine Glucose (UA) (Normal) Urine Ketones (Negative) Urine Blood (Negative) Urine Nitrate (Negative) Urine Bilirubin (Negative) Urine Urobilinogen (Negative) mg/dL Ur Leukocyte Willow ase (Negative) Serum Ketones (Negative) SARS-CoV-2 Ag (Rap id) (Negative) 07/29/20 07/29/20 07/29/20 Range/Units 17:00 17:00 17:50 WBC (4.0-10.0) 10^3/ uL RBC (4.1-5.3) 10^6/u L Hgb (11.7-16.6) g/dL Hct (42.0-52.0) % MCV (80-94) fL MCH (28.0-34.0) pg MCHC (30.0-36.0) g/dL RDW (12.1-15.1) % Plt Count (130-400) 10^3/c mm MPV (7.4-10.4) fL Neut % (Auto) % Lymph % (Auto) % [place] % (Auto) % Eos % (Auto) % Baso % (Auto) % Neut # (Auto) (1.8-7.7) 10^3/u L Lymph # (Auto) (0.8-4.8) 10^3/u L [place] # (Auto) (0.2-0.9) 10^3/u L Eos # (Auto) (0.0-0.8) 10^3/u L Baso # (Auto) (0.0-0.1) 10^3/u L Nucleated RBC % (a uto) % Nucleated RBCs # /100WBC Sodium Potassium Chloride Carbon Dioxide Anion Gap BUN Creatinine GFR Calculation Glucose Calculated Osmolal ity Lactic Acid Calcium Total Bilirubin AST ALT Alkaline Phosphata se Creatine Kinase (39-308) U/L Troponin T Baselin e Troponin T 120 Min tangirnaq (0-15) ng/L Delta Troponin T (0-10) ABS# Troponin T Hi Sens 6Hr (0-15) ng/L Troponin T Hi Sens 6Hr Delta (0-12) ng/L NT-Pro-B Natriuret Pep Total Protein Albumin Globulin Lipase 17 (13-60) U/L TSH Urine Color Gwen (Yellow) Urine Appearance Clear (CLEAR) Urine pH 5 (5-7) Ur Specific Gravit y 1.020 (1.005-1.030) Urine Protein Neg (Negative) Urine Glucose (UA) 2+ (Normal) Urine Ketones 1+ H (Negative) Urine Blood Neg (Negative) Urine Nitrate Negative (Negative) Urine Bilirubin 1+ H (Negative) Urine Urobilinogen 1 H (Negative) mg/dL Ur Leukocyte Willow ase Negative (Negative) Serum Ketones Negative (Negative) SARS-CoV-2 Ag (Rap id) (Negative) 07/29/20 07/29/20 Range/Units 20:37 20:37 WBC (4.0-10.0) 10^3/ uL RBC (4.1-5.3) 10^6/u L Hgb (11.7-16.6) g/dL Hct (42.0-52.0) % MCV (80-94) fL MCH (28.0-34.0) pg MCHC (30.0-36.0) g/dL RDW (12.1-15.1) % Plt Count (130-400) 10^3/c mm MPV (7.4-10.4) fL Neut % (Auto) % Lymph % (Auto) % [place] % (Auto) % Eos % (Auto) % Baso % (Auto) % Neut # (Auto) (1.8-7.7) 10^3/u L Lymph # (Auto) (0.8-4.8) 10^3/u L [place] # (Auto) (0.2-0.9) 10^3/u L Eos # (Auto) (0.0-0.8) 10^3/u L Baso # (Auto) (0.0-0.1) 10^3/u L Nucleated RBC % (a uto) % Nucleated RBCs # /100WBC Sodium Potassium Chloride Carbon Dioxide Anion Gap BUN Creatinine GFR Calculation Glucose Calculated Osmolal ity Lactic Acid Calcium Total Bilirubin AST ALT Alkaline Phosphata se Creatine Kinase 410 H* (39-308) U/L Troponin T Baselin e Troponin T 120 Min tangirnaq (0-15) ng/L Delta Troponin T (0-10) ABS# Troponin T Hi Sens 6Hr 18.92 H (0-15) ng/L Troponin T Hi Sens 6Hr Delta -2.08 L (0-12) ng/L NT-Pro-B Natriuret Pep Total Protein Albumin Globulin Lipase (13-60) U/L TSH Urine Color (Yellow) Urine Appearance (CLEAR) Urine pH (5-7) Ur Specific Gravit y (1.005-1.030) Urine Protein (Negative) Urine Glucose (UA) (Normal) Urine Ketones (Negative) Urine Blood (Negative) Urine Nitrate (Negative) Urine Bilirubin (Negative) Urine Urobilinogen (Negative) mg/dL Ur Leukocyte Willow ase (Negative) Serum Ketones (Negative) SARS-CoV-2 Ag (Rap id) (Negative) EKG Data^: EKG 1: Other EKG comments: Chest X-Ray 07/29/20 13:41 IMPRESSION: No acute chest abnormality. Chest CTA 07/29/20 13:59 IMPRESSION: No acute findings. Radiation Dose CTDIVOL = (mGy): DLP = 575.39 (mGy-cm) Abdomen/Pelvis CT 07/29/20 18:41
[2020-07-29] MEDS: aspirin 81 mg Chew Tablet 324 MG PO (14:19)
[2020-07-29 14:21] LABS: Basophils % 0.3 %; Eosinophils # 0.1 10^3/uL (0.0-0.8); Eosinophils % 0.7 %; Hematocrit 43.2 % (42.0-52.0); Hemoglobin 14.6 g/dL (11.7-16.6); Lymphocytes # 0.3 10^3/uL (0.8-4.8); Lymphocytes % 3.1 %; Mean Corpuscular HGB Conc 33.8 g/dL (30.0-36.0); Mean Corpuscular Volume 91.7 fL (80-94); Mean Platelet Volume 10.5 fL (7.4-10.4); Monocytes # 0.5 10^3/uL (0.2-0.9); Monocytes % 4.9 %; Neutrophils # 9.94 10^3/uL (1.8-7.7); Neutrophils % 90.6 %; Nucleated Red Blood Cells % 0 %; Platelet Count 201 10^3/cmm (130-400); Red Blood Count 4.71 10^6/uL (4.1-5.3); Red Cell Distribution Width 11.9 % (12.1-15.1)
[2020-07-29 14:51] LABS: SARS Covid-2 Antigen Negative (Negative)
[2020-07-29 15:37] LABS: Lactic Sepsis W/Reflex 1.9 mmol/L (0.5-2.2)
[2020-07-29 15:48] LABS: Alanine Aminotransferase 73 U/L (0-41); Albumin Level 4.4 g/dL (3.5-5.2); Alkaline Phosphatase 72 IU/L (40-130); Anion Gap 17.7 (5-19); Aspartate Amino Transferase 46 U/L (0-40); Blood Urea Nitrogen 21 mg/dL (8-23); Calcium 9.1 mg/dL (8.5-10.5); Carbon Dioxide 25 mmol/L (22-29); Chloride 95 mmol/L (98-107); Globulin 2.9 g/dL (1.3-4.6); Glomerular Filtration Rate 54.7 mL/min (90-130); Glucose 238 mg/dL (65-115); NT Pro B Type Natriuretic Pept 17 pg/mL (0-125); Osmolality Calculated 287 mOsm/kg (285-295); Potassium 4.7 mmol/L (3.5-5.1); Sodium 133 mmol/L (136-145); Thyroid Stimulating Hormone 0.79 uIU/mL (0.27-4.20); Total Bilirubin 0.6 mg/dL (0.15-1.2); Total Protein 7.3 g/dL (6.6-8.7)
--- NOTE | 2020-07-29 15:58 | ECG_ITS ---
[facility] Test Date: 2020-07-29 Pat Name: Bill Patel Department: Room: Gender: Male Ios Developer: : 1950 Requested By: Atiya Rich Order Number: [id number] Annika MD: Rena Silver M.D. Measurements Intervals [place] Rate: 100 P: 31 MT: 160 QRS: -14 QRSD: 93 T: 78 QT: 334 QTc: 432 Interpretive Statements SINUS TACHYCARDIA LOW QRS VOLTAGE IN PRECORDIAL LEADS [QRS DEFLECTION < 1.0 mV IN CHEST LEADS] LEFT VENTRICULAR HYPERTROPHY AND ST-T CHANGE [VOLTAGE CRITERIA PLUS ST/T ABNORMALITY] Compared to ECG 07/29/2020 13:50:02 Low QRS voltage now present Left ventricular hypertrophy now present ST (T wave) deviation now present T-wave abnormality no longer present Electronically Signed On 07-30-2020 7:45:34 CDT by Rena Silver M.D. [id number]
[2020-07-29 16:18] LABS: Troponin(5th) Baseline 21 ng/L (0-15)
[2020-07-29] MEDS: iodixanol 320 mg/mL 100mL Btl IV (16:33)
[2020-07-29 17:34] LABS: Ketone (Acetest) Serum Negative (Negative)
[2020-07-29 18:01] LABS: Add Urine Microscopic? NO
[2020-07-29 18:20] LABS: Bilirubin Urine 1+ (Negative); Blood Urine Neg (Negative); Glucose Urine UA 2+ (Normal); Ketones Urine 1+ (Negative); Leukocyte Esterase Urine Negative (Negative); Nitrate Urine Negative (Negative); Protein Urine Neg (Negative); Urine Appearance Clear (CLEAR); Urine Color Amber (Yellow); Urobilinogen Urine 1 mg/dL (Negative); pH Urine 5 (5-7)
[2020-07-29 18:39] LABS: Troponin 5 2HR 20.94 ng/L (0-15)
--- NOTE | 2020-07-29 18:41 | CTR_ITS ---
PROCEDURE INFORMATION: Exam: CT Abdomen And Pelvis Without Contrast Exam date and time: 07/29/2020 6:43 PM Age: 70 years old Clinical indication: Abdominal pain; Additional info: Flank pain TECHNIQUE: Imaging protocol: Computed tomography of the abdomen and pelvis without contrast. Radiation optimization: All CT scans at this facility use at least one of these dose optimization techniques: automated exposure control; mA and/or kV adjustment per patient size (includes targeted exams where dose is matched to clinical indication); or iterative reconstruction. COMPARISON: No relevant prior studies available. RADIATION DOSE METRICS: Total DLP (mGy-cm): 2043.81 FINDINGS: Liver: Normal. No mass. Gallbladder and bile ducts: Normal. No calcified stones. No ductal dilation. Pancreas: Normal. No ductal dilation. Spleen: Normal. No splenomegaly. Adrenal glands: Normal. No mass. Kidneys and ureters: Fat stranding around both kidneys, most likely age related process. No hydronephrosis. Moderate severity diffuse bilateral renal cortical atrophy. Symmetric contrast excretion from kidneys. No renal stones evident. No suspicious renal mass. Stomach and bowel: Moderate fecal volume. Mild diverticulosis coli. Negative for bowel obstruction. Negative for bowel perforation. No focal inflammatory wall thickening of bowel loops. Endoscopic clip in the right colon. Appendix: No evidence of appendicitis. Intraperitoneal space: Unremarkable. No free air. No significant fluid collection. Retroperitoneal space: No retroperitoneal hematoma. Vasculature: Abdominal aorta is nonaneurysmal with minimal atherosclerotic change. Lymph nodes: Unremarkable. No enlarged lymph nodes. Urinary bladder: Unremarkable as visualized. Reproductive: Unremarkable as visualized. Bones/joints: No significant osseous abnormality of lumbar spine or pelvis. Soft tissues: Lumbar paraspinal muscles are symmetric. CT/CT kidney stone [id number] IMPRESSION: No focal acute pathology in the abdomen or pelvis identified. Radiation Dose CTDIVOL = (mGy): DLP = 2043.81 (mGy-cm)
[2020-07-29 18:42] LABS: Troponin 5 2HR Delta -0.06 ABS# (0-10)
[2020-07-29] MEDS: sodium chloride 0.9% 1,000 ML 999 ML IV (18:55)
[2020-07-29] MEDS: ondansetron 2 mg/ML SDV 2 mL 4 MG IVP (18:56)
[2020-07-29 20:35] LABS: Lipase 17 U/L (13-60)
[2020-07-29] MEDS: promethazine 25 mg/mL SDV 1 mL IM (20:50)
[2020-07-29 21:11] LABS: Troponin 5 6HR 18.92 ng/L (0-15)
[2020-07-29 21:32] LABS: Troponin 5 6HR Delta -2.08 ng/L (0-12)
[2020-07-29 23:22] LABS: Creatine Phosphokinase 410 U/L (39-308)
--- NOTE | 2020-07-29 23:59 | PC.NURSE ---
patient is refusing to go to floor without his ; House Sup was advised and she informs us to contact Dr. Randolph for order to allow to stay; will discuss with her.
[2020-07-30] VITALS (12 sets, daily range): BP systolic 114–136; BP diastolic 65–75; PULSE 73–88; RESP 16–20; TEMP 36.7–38.1; O2SAT 92–97
--- NOTE | 2020-07-30 03:08 | PM.HP ---
Providers/Chief Complaint Admitting Physician: Maria M Randolph MD Primary Care Provider: Freya Maguire DO Chief Complaint: CP, HEART PALPITATIONS, NAUSEA, DIZZY, SWEATING History of Present Illness Bill Patel is a 70 year old male who presented to the emergency room with multiple complaints. He has not felt well for a couple of days. He has had some issues with constipation and malaise. He has had some pain in his right flank that he attributes to kidney pain. He did not feel well when he woke up. He some breakfast and subsequently became nauseated. He denies any episodes of vomitus. He tried to go to work but when he was walking around he became more nauseated and started noticing some palpitations. Does not really describe being short of breath. The palpitations improved with rest. He feels like he is quite dehydrated. He reports feeling feverish and having chills. A little bit of nasal drainage. No sore throat. Minimal cough primarily related to postnasal drainage. He has had some headaches and has had episodes that he describes as not being able to control his body for 20 seconds or so at a time. He has felt dizzy. Denies that its similar to episodes when he has had vertigo in the past just notices that something is not right. Work-up in the emergency room revealed creatinine just above normal range without any prior values for comparison. He had persistent nausea that had not improved with any medications and refused to try to take anything by mouth because of this. He developed some low-grade temperatures and associated mild tachycardia. CT of the chest abdomen and pelvis did not show any acute findings. Serial cardiac enzymes and EKGs were unrevealing. Nevertheless patient symptoms persisted. He was clinically felt to have some dehydration and likely viral illness. He is being laced into observation for IV fluids and supportive treatment as well as monitoring for any progressive symptoms. He does report feeling better than he did when he came in but continues to not feel well. Review of Systems Const: Reports: fever(s), chills, body aches, change in appetite, fatigue, malaise and diaphoresis Eyes: Denies: change in vision ENMT: Reports: nasal congestion and post nasal drip; Denies: throat pain or dry mouth Card: Reports: palpitations and edema; Denies: chest pain Resp: Reports: productive cough (Minimal); Denies: dyspnea or non-productive cough GI: Denies: abdominal pain, nausea, vomiting, diarrhea or constipation : Reports: flank pain and difficulty urinating; Denies: hematuria Musc: Reports: muscle weakness Skin/Breast: Denies: rash or pruritus Neuro: Reports: headache(s), weakness in extremities (Nonfocal), dizziness and involuntary movements (Transient when he was having CT scan) Psych: Denies: anxiety Florian/Lymph: Denies: easy bruising or easy bleeding Medications/Allergies Home Medications Medication Instructions Recorded Confirmed Last Taken Type apixaban 5 mg tablet 5 mg PO BID 06/02/20 07/29/20 07/29/20 07:20 History donepezil 10 mg tablet 10 mg PO BEDTIME 06/02/20 07/29/20 07/28/20 History glipizide 10 mg tablet 10 mg PO BID 06/02/20 07/29/20 07/29/20 07:20 History insulin glargine 100 unit/mL (3 60 unit SUBCUT BID ml 06/02/20 07/29/20 07/29/20 History mL) subcutaneous pen levothyroxine 112 mcg capsule 112 mcg PO QAM 06/02/20 07/29/20 07/29/20 05:30 History lisinopril 10 mg tablet 10 mg PO BEDTIME 06/02/20 07/29/20 07/28/20 History hydrochlorothiazide 25 mg PO QAM 06/05/20 07/29/20 07/29/20 07:20 History rosuvastatin 10 mg PO BEDTIME 06/05/20 07/29/20 07/28/20 History Vitamin C 1 tab PO DAILY 07/29/20 07/29/20 Unknown History acetaminophen [Tylenol 8 Hour] 1,300 mg PO PRN 07/29/20 07/29/20 07/29/20 07:20 History coenzyme Q10 [CoQ-10] 100 mg PO DAILY 07/29/20 07/29/20 Unknown History folic acid 1 tab PO DAILY 07/29/20 07/29/20 Unknown History gabapentin See Rx Instructions .ROUTE .COMPLEX 07/29/20 07/29/20 Unknown History metformin 500 mg PO BID 07/29/20 07/29/20 07/29/20 07:20 History testosterone cypionate 200 mg IM Q14D 07/29/20 07/29/20 07/19/20 History tramadol [Ultram] 50 mg PO Q6H PRN 07/29/20 07/29/20 07/28/20 History vitamin B complex 1 tab PO DAILY 07/29/20 07/29/20 Unknown History Allergies Allergy/AdvReac Type Severity Reaction Status Date / Time sulfamethoxazole Allergy Rash Verified 07/29/20 14:47 [From Bactrim] trimethoprim [From Bactrim] Allergy Rash Verified 07/29/20 14:47 PFSH Acute PFSH: Medical History (Updated 07/30/20 @ 07:51 by Maria M Randolph MD) Colon polyps COPD (chronic obstructive pulmonary disease) Diverticulosis Essential hypertension Family history of Alzheimer's disease Has been on Aricept for a long time related to this and some concerning symptoms years ago History of thromboembolism History of DVT and PE in the past, on chronic Eliquis Hyperlipidemia Hypothyroidism Low testosterone in male Type 2 diabetes mellitus Surgical History (Updated 07/30/20 @ 07:43 by Maria M Randolph MD) H/O transurethral resection of prostate History of eye surgery Family History (Updated 07/30/20 @ 07:49 by Maria M Randolph MD) Mother Dementia Social History (Updated 07/30/20 @ 07:50 by Maria M Randolph MD) Smoking and tobacco status: current every day smoker cigars Cigar details: Smokes a few cigars a week Alcohol intake: current Alcohol intake frequency: few times a week Substance/Drug Use: never Household members: spouse Marital status: Current occupational status: employed Vitals/I&O/Wt Last Vital Signs Temp 100.6 F H 07/30/20 00:54 Pulse 82 07/30/20 00:54 Resp 18 07/30/20 00:54 BP 123/70 07/30/20 00:54 Pulse Ox 95 07/30/20 00:54 07/29/20 07/29/20 07/30/20 14:59 22:59 06:59 Intake Total 1000 / 1000 Balance 1000 / 1000 Weight last 48 hrs Weight 117.027 kg Physical Exam Const: OTHER: Asleep, arousable, still not feeling bad HENMT: OTHER: Normocephalic atraumatic, dry mucous membranes Eye: OTHER: Pupils equally round and reactive to light, EOMI, no nystagmus Neck/C-Spine: OTHER: Supple, large Resp: OTHER: Clear to auscultation bilaterally, no rales, rhonchi or wheezes noted, no accessory muscle use noted Cardio: OTHER: Regular rate and rhythm, no murmurs gallops or rubs GI: OTHER: Abdomen soft, mild flank tenderness on right, nondistended with positive bowel sounds Extremity: NARRATIVE EXTREMITY EXAM: No cyanosis, clubbing or edema, no acute synovitis Neuro: OTHER: Face symmetric, speech clear, moves all extremities Skin: OTHER: Skin dry, no rashes, no sores Data : 07/30/20 05:37 07/30/20 05:37 A&P Assessment and plan (1) Multiple complaints: Malaise, nausea without vomiting, palpitations, feverish, abnormal movements, right flank pain, constipation, dehydration, lightheadedness already which improved with hydration in the emergency room. Had extensive work-up minimally elevated white count, mild hyponatremia and hypochloremia along with slight increase in creatinine suggestive of some dehydration although baseline values are not known, minimal elevation in transaminases, mild elevation in CK level, elevated troponin T without significant delta and some ketonuria. Rapid Covid antigen was negative. Denies any known sick contacts though to a birthday alliance party this past weekend. Suspected to be a viral illness at this point in time. Cannot completely rule out variations in blood sugars, peripheral neuropathy, cardiovascular process though they seem less likely at the moment. 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 Diabetes mellitus complication status: with hyperglycemia Qualified Code(s): E11.65 - Type 2 diabetes mellitus with hyperglycemia; Z79.4 - manager intermediate (current) use of insulin (4) COPD (chronic obstructive pulmonary disease): Status: Chronic Qualifiers: COPD type: unspecified COPD Qualified Code(s): J44.9 - Chronic obstructive pulmonary disease, unspecified (5) Essential hypertension: Status: Chronic (6) Hyperlipidemia: Status: Chronic Qualifiers: Hyperlipidemia type: unspecified Qualified Code(s): E78.5 - Hyperlipidemia, unspecified (7) Chronic anticoagulation: Eliquis Status: Chronic (8) Hypothyroidism: Status: Chronic Qualifiers: Hypothyroidism type: acquired Qualified Code(s): E03.9 - Hypothyroidism, unspecified (9) Low testosterone in male: Status: Chronic Additional A&P Information Observation admission Continue IV fluids Check influenza swab Recheck laboratory studies in the morning Continue insulin Continue levothyroxine Continue Eliquis I have currently held home for thiazide, lisinopril, Crestor, Metformin and multiple vitamins Telemetry monitoring Follow-up pending cardiac enzymes Request records from Dr. Maguire office particularly as patient reports recent blood work done there Antiemetics and antipyretics as needed Further supportive care as indicated Eliquis provides for appropriate VTE prophylaxis Plans were discussed with patient and he was given an opportunity to ask questions. Reviewed findings from CT of the abdomen/pelvis, chest and labs. Full Code Attestations Medical Necessity Statement*: Currently anticipated stay less than 2 midnights in a gentleman with multiple complaints as noted. Symptoms persisted despite supportive treatment offered. Will monitor for any further developing symptoms and continue IV fluids and other symptom management to ensure no progressive clinical decline related to his cascade of symptoms today. Coding Level of Care Code Acute Community Support Associate for [facility] Fwd Diagnoses Multiple complaints R68.89 Viral illness B34.9 Type 2 diabetes mellitus E11.65; Z79.4 Diabetes mellitus long-term insulin use: with long-term use Diabetes mellitus complication status: with hyperglycemia COPD (chronic obstructive pulmonary disease) J44.9 COPD type: unspecified COPD Essential hypertension I10 Hyperlipidemia E78.5 Hyperlipidemia type: unspecified Chronic anticoagulation Z79.01 Hypothyroidism E03.9 Hypothyroidism type: acquired Low testosterone in male R79.89
[2020-07-30] MEDS: famotidine 20 mg/2 mL INJ IVP ×2 (03:22→12:44)
[2020-07-30] MEDS: sodium chloride 0.9% 1,000 ML 125 ML IV ×3 (03:22→20:41)
[2020-07-30 05:47] LABS: Basophils % 0.3 %; Eosinophils # 0.1 10^3/uL (0.0-0.8); Eosinophils % 0.9 %; Hematocrit 38.2 % (42.0-52.0); Hemoglobin 12.3 g/dL (11.7-16.6); Lymphocytes # 0.6 10^3/uL (0.8-4.8); Lymphocytes % 8.9 %; Mean Corpuscular HGB Conc 32.2 g/dL (30.0-36.0); Mean Corpuscular Hemoglobin 30.1 pg (28.0-34.0); Mean Corpuscular Volume 93.4 fL (80-94); Mean Platelet Volume 10.2 fL (7.4-10.4); Monocytes # 0.6 10^3/uL (0.2-0.9); Monocytes % 8.2 %; Neutrophils # 5.48 10^3/uL (1.8-7.7); Neutrophils % 81.3 %; Nucleated Red Blood Cells % 0 %; Platelet Count 173 10^3/cmm (130-400); Red Blood Count 4.09 10^6/uL (4.1-5.3); Red Cell Distribution Width 12.2 % (12.1-15.1); White Blood Count 6.7 10^3/uL (4.0-10.0)
[2020-07-30] MEDS: ondansetron 2 mg/ML SDV 2 mL 4 MG IVP (05:47)
[2020-07-30] MEDS: TRAMadol 50 mg Tablet PO ×2 (05:47→20:39)
[2020-07-30 06:08] LABS: Alanine Aminotransferase 47 U/L (0-41); Albumin Level 3.6 g/dL (3.5-5.2); Alkaline Phosphatase 51 IU/L (40-130); Anion Gap 13.8 (5-19); Aspartate Amino Transferase 30 U/L (0-40); Blood Urea Nitrogen 26 mg/dL (8-23); Carbon Dioxide 25 mmol/L (22-29); Chloride 97 mmol/L (98-107); Globulin 2.5 g/dL (1.3-4.6); Glomerular Filtration Rate 54.7 mL/min (90-130); Glucose 219 mg/dL (65-115); Magnesium 1.7 mg/dL (1.7-2.3); Osmolality Calculated 285 mOsm/kg (285-295); Potassium 3.8 mmol/L (3.5-5.1); Sodium 132 mmol/L (136-145); Total Bilirubin 0.5 mg/dL (0.15-1.2); Total Protein 6.1 g/dL (6.6-8.7)
[2020-07-30 06:46] LABS: Glucose Point of Care 228 mg/dL (70-110)
[2020-07-30] MEDS: levothyroxine 112 mcg Tablet PO (07:17)
[2020-07-30] MEDS: apixaban 5 mg Tablet PO ×2 (07:17→20:41)
[2020-07-30] MEDS: insulin glargine 100 units/1 mL 20 UNIT SUBCUT ×2 (08:48→20:43)
[2020-07-30 09:50] LABS: Influenza A by IFA Negative (Negative); Influenza B by IFA Negative (Negative)
[2020-07-30 10:45] LABS: Glucose Point of Care 260 mg/dL (70-110)
--- NOTE | 2020-07-30 11:33 | PM.PN ---
Subjective Subjective: Interval history: Patient was seen and examined this morning, no active complaint, currently feeling well. Has remained afebrile, his other vitals and labs have been reviewed. Vitals/I&O/Wt Last Vital Signs Temp 98.1 F 07/30/20 11:13 Pulse 79 07/30/20 11:13 Resp 16 07/30/20 11:13 BP 126/74 07/30/20 11:13 Pulse Ox 97 07/30/20 11:13 07/29/20 07/30/20 07/30/20 22:59 06:59 14:59 Intake Total 1000 / 1000 1166.25 / 1166.25 Output Total 240 / 240 250 / 250 Balance 1000 / 1000 -240 / 760 916.25 / 916.25 Weight last 48 hrs Weight 117.027 kg Physical Exam Const: COMMON NORMALS: patient oriented x3 HENMT: COMMON NORMALS: normocephalic, atraumatic, hearing grossly normal bilaterally and external ears normal HEAD & SCALP: normocephalic and atraumatic EXTERNAL EAR: Yes external ears normal Eye: COMMON NORMALS: no scleral icterus GENERAL EYE: appearance normal, both eyes and all related structures Chest: COMMONS NORMALS: normal inspection of the chest and normal palpation of entire chest wall CHEST: Yes Symmetrical chest wall rise Resp: COMMON NORMALS: normal respiratory effort, No retractions, No use of accessory muscles and clear to auscultation bilaterally EFFORT & INSPECTION: Yes symmetric chest movement AUSCULTATION: clear to auscultation bilaterally Cardio: COMMON NORMALS: regular rate, regular rhythm, S1 normal heart sound present, S2 normal heart sound present, No gallops present (Cardio), No murmurs present (Cardio), No rub (Cardio) and Peripheral pulses 2+ throughout RATE: regular rate RHYTHM: regular rhythm HEART SOUNDS: S1 normal heart sound present and S2 normal heart sound present PERIPHERAL PULSES: Peripheral pulses 2+ throughout GI: COMMON NORMALS: Normal to inspection, nondistended, normoactive bowel sounds present, Soft to palpation, non-tender, No hepatosplenomegaly present and no masses AUSCULTATION: Yes normoactive bowel sounds PALPATION: Yes Soft to palpation and Yes No hepatosplenomegaly present RECTAL EXAM: Yes deferred : COMMON NORMALS: Yes no CVA tenderness BLADDER/KIDNEY EXAM: Yes no CVA tenderness Back/Pelvis: COMMON NORMALS: no CVA tenderness Extremity: COMMON NORMALS: no clubbing, cyanosis or edema and no pedal edema Neuro: COMMON NORMALS: patient oriented x3 Data : 07/30/20 05:37 07/30/20 05:37 A&P Assessment and plan (1) Multiple complaints: Has improved: Malaise, nausea without vomiting, palpitations, feverish, abnormal movements, right flank pain, constipation, dehydration, lightheadedness already which improved with hydration in the emergency room. Had extensive work-up minimally elevated white count, mild hyponatremia and hypochloremia along with slight increase in creatinine suggestive of some dehydration although baseline values are not known, minimal elevation in transaminases, mild elevation in CK level, elevated troponin T without significant delta and some ketonuria. Rapid Covid antigen was negative. Denies any known sick contacts though to a birthday constitution party this past weekend. Suspected to be a viral illness at this point in time. Status: Acute (2) Viral illness: Status: Acute (3) Type 2 diabetes mellitus: Status: Chronic Qualifiers: Diabetes mellitus intermediate insulin use: with intermediate use Diabetes mellitus complication status: with hyperglycemia Qualified Code(s): E11.65 - Type 2 diabetes mellitus with hyperglycemia; Z79.4 - halfway (current) use of insulin (4) COPD (chronic obstructive pulmonary disease): Status: Chronic Qualifiers: COPD type: unspecified COPD Qualified Code(s): J44.9 - Chronic obstructive pulmonary disease, unspecified (5) DVT (deep venous thrombosis): Status: Acute (6) Essential hypertension: Status: Chronic (7) Hyperlipidemia: Status: Chronic Qualifiers: Hyperlipidemia type: unspecified Qualified Code(s): E78.5 - Hyperlipidemia, unspecified (8) Chronic anticoagulation: Eliquis Status: Chronic (9) Hypothyroidism: Status: Chronic Qualifiers: Hypothyroidism type: acquired Qualified Code(s): E03.9 - Hypothyroidism, unspecified (10) Low testosterone in male: Status: Chronic (11) Palpitations: Status: Acute Additional A&P Information Continue IV fluids influenza swab: Negative Continue insulin Continue levothyroxine Continue Eliquis Telemetry monitoring 2D echo: Eliquis provides for appropriate VTE prophylaxis Full Code Attestations Medical Necessity Statement*: Patient needs to be in hospital for monitoring of multiple above complaints. Coding Level of Care Code Acute Parole Board Member for [facility] Fwd Diagnoses Multiple complaints R68.89 Viral illness B34.9 Type 2 diabetes mellitus E11.65; Z79.4 Diabetes mellitus intermediate insulin use: with intermediate use Diabetes mellitus complication status: with hyperglycemia COPD (chronic obstructive pulmonary disease) J44.9 COPD type: unspecified COPD DVT (deep venous thrombosis) I82.409 Essential hypertension I10 Hyperlipidemia E78.5 Hyperlipidemia type: unspecified Chronic anticoagulation Z79.01 Hypothyroidism E03.9 Hypothyroidism type: acquired Low testosterone in male R79.89 Palpitations R00.2
--- NOTE | 2020-07-30 12:33 | USCV_ITS ---
Bill Patel Age: 70 Gender: M : 1950 Exam Date: 07/30/2020 15:43 Ordering Phys: Shoaib Mayen MD Technologist: Colby Lisa Exam Location: [facility] [place] Indication: CHEST PAIN BP: 132 / 74 HR: 74 Rhythm: Sinus Technical Quality: Fair MEASUREMENTS (Male / Female) Normal Values 2D ECHO LV Diastolic Diameter PLAX 4.3 cm 4.2 - 5.9 / 3.9 - 5.3 cm LV Systolic Diameter PLAX 2.7 cm IVS Diastolic Thickness 1.1 cm 0.6 - 1.0 / 0.6 - 0.9 cm IVS Systolic Thickness 2.0 cm LVPW Diastolic Thickness 1.2 cm 0.6 - 1.0 / 0.6 - 0.9 cm LVPW Systolic Thickness 1.3 cm LVOT Diameter 2.1 cm LV Ejection Fraction 2D Teich 68.1 % LV Ejection Fraction MOD 2C 79.1 % LV Ejection Fraction 2C AL 79.7 % LA Diameter 3.7 cm LA Width 4.2 cm LA Height 4.6 cm RA Width 3.8 cm RA Height 4.8 cm Aorta at Sinotubular Diameter 2.6 cm M-MODE LV Diastolic Diameter MM 5.7 cm 4.2 - 5.9 / 3.9 - 5.3 cm LV Systolic Diameter MM 3.2 cm LV Ejection Fraction MM Teich 75.5 % IVS Diastolic Thickness MM 0.8 cm 0.6 - 1.0 / 0.6 - 0.9 cm IVS Systolic Thickness MM 1.7 cm LVPW Diastolic Thickness MM 1.2 cm 0.6 - 1.0 / 0.6 - 0.9 cm LVPW Systolic Thickness MM 1.9 cm RV Diastolic Diameter MM 1.4 cm Aortic Annulus Diameter 3.7 cm LA Ao Ratio MM 1.0 MV E Point Septal Separation 0.8 cm DOPPLER AV Peak Velocity 156.0 cm/s LVOT Peak Velocity 125.0 cm/s AV Area Cont Eq vti 2.5 cm squared AV Area Cont Eq pk 2.7 cm squared MV Area PHT 5.0 cm squared Mitral E to A Ratio 1.5 MV E' Velocity 52.5 cm/s Mitral E to MV E' Ratio 10.9 Mitral E to LV E' Lateral Ratio 10.0 Mitral E to LV E' Septal Ratio 12.2 TR Peak Velocity 221.7 cm/s TR Peak Gradient 19.7 mmHg TV Peak E Velocity 108.0 cm/s Right Atrial Pressure 3.0 mmHg Pulmonary Artery Systolic Pressu 22.7 mmHg PV Peak Velocity 109.0 cm/s FINDINGS Left Ventricle Normal left ventricular cavity size. Normal left ventricular systolic function. No regional wall motion abnormalities. Left ventricular ejection fraction is estimated at 65 %. Grade II/IV diastolic dysfunction, moderately elevated filling pressures. Right Ventricle The right ventricle is normal in size and function. Right Atrium The right atrium is normal in size. Left Atrium The left atrium is normal in size. Mitral Valve Moderately thickened mitral valve. No mitral valve stenosis. Moderate mitral valve regurgitation. Aortic Valve Moderate aortic valve calcification. No aortic valve stenosis. Tricuspid Valve Structurally normal tricuspid valve without significant stenosis or regurgitation. Pulmonary artery systolic pressure is normal. Pulmonic Valve Structurally normal pulmonic valve without significant stenosis. There is no pulmonic regurgitation. Pericardium Normal pericardium without effusion. Aorta Normal ascending aorta dimension. CONCLUSIONS 1-Normal left ventricular cavity size. Normal left ventricular systolic function. No regional wall motion abnormalities. Left ventricular ejection fraction is estimated at 65 %. Grade II/IV diastolic dysfunction, moderately elevated filling pressures. 2-Moderately thickened mitral valve. No mitral valve stenosis. Moderate mitral valve regurgitation. 3-Moderate aortic valve calcification. No aortic valve stenosis. 4-Pulmonary artery systolic pressure is within normal limits. 5-There is no pericardial effusion. 6-Right atrial pressure is around 5 mm of mercury. 7-There are no prior echocardiogram studies to compare. Home Luis MD (Electronically Signed) Final Date: 30 July 2020 16:59 S
[2020-07-30 16:53] LABS: Glucose Point of Care 180 mg/dL (70-110)
[2020-07-30 20:31] LABS: Glucose Point of Care 174 mg/dL (70-110)
[2020-07-30] MEDS: donepezil 5 MG Tablet 10 MG PO (20:40)
[2020-07-30] MEDS: gabapentin 300 mg Capsule 600 MG PO (20:40)
[2020-07-31] VITALS (8 sets, daily range): BP systolic 144–154; BP diastolic 79–91; PULSE 0–94; RESP 16–18; TEMP 36.7–37.3; O2SAT 93–97
[2020-07-31] MEDS: famotidine 20 mg/2 mL INJ IVP (03:01)
[2020-07-31] MEDS: sodium chloride 0.9% 1,000 ML 125 ML IV (03:01)
[2020-07-31] MEDS: levothyroxine 112 mcg Tablet PO (06:09)
[2020-07-31 06:40] LABS: Glucose Point of Care 179 mg/dL (70-110)
[2020-07-31] MEDS: insulin glargine 100 units/1 mL 20 UNIT SUBCUT (08:23)
[2020-07-31] MEDS: apixaban 5 mg Tablet PO (08:23)
[2020-07-31] MEDS: lisinopril 10 mg Tablet PO (10:09)
--- NOTE | 2020-07-31 11:03 | PM.DCS ---
Discharge Providers Date of Admission: 07/29/20 22:23 Date of Discharge: July 31, 2020 Attending Provider at Admission: Maria M Randolph MD Attending Provider at Discharge: Shoaib Mayen MD Primary Care Provider: Freya Maguire DO Diagnoses at Discharge Discharge Diagnosis (1) Multiple complaints: Status: Resolved (2) Viral illness: Status: Resolved (3) Type 2 diabetes mellitus: Status: Chronic Qualifiers: Diabetes mellitus complication status: with hyperglycemia Diabetes mellitus terminal operator insulin use: with terminal operator use Qualified Code(s): E11.65 - Type 2 diabetes mellitus with hyperglycemia; Z79.4 - retirement (current) use of insulin (4) COPD (chronic obstructive pulmonary disease): Status: Chronic Qualifiers: COPD type: unspecified COPD Qualified Code(s): J44.9 - Chronic obstructive pulmonary disease, unspecified (5) DVT (deep venous thrombosis): Status: Chronic (6) Essential hypertension: Status: Chronic (7) Hyperlipidemia: Status: Chronic Qualifiers: Hyperlipidemia type: unspecified Qualified Code(s): E78.5 - Hyperlipidemia, unspecified (8) Chronic anticoagulation: Status: Chronic Permanent problem details: Eliquis (9) Hypothyroidism: Status: Chronic Qualifiers: Hypothyroidism type: acquired Qualified Code(s): E03.9 - Hypothyroidism, unspecified (10) Low testosterone in male: Status: Chronic (11) Palpitations: Status: Acute Reason for Visit Reason for Visit: CP, HEART PALPITATIONS, NAUSEA, DIZZY, SWEATING Hospital Course Hospital Course 70 year old male with past medical history of COPD , DVT on Eliquis, diabetes compliant with medications , hypothyroidism who presented to the emergency room with multiple complaints. He has not felt well for a couple of days. He has had some issues with constipation and malaise. He has had some pain in his right flank that he attributes to kidney pain. He did not feel well when he woke up. He some breakfast and subsequently became nauseated. He denies any episodes of vomitus. He tried to go to work but when he was walking around he became more nauseated and started noticing some palpitations. Does not really describe being short of breath. The palpitations improved with rest. He feels like he is quite dehydrated. He reports feeling feverish and having chills. A little bit of nasal drainage. No sore throat. Minimal cough primarily related to postnasal drainage. He has had some headaches and has had episodes that he describes as not being able to control his body for 20 seconds or so at a time. He has felt dizzy. Denied that its similar to episodes when he has had vertigo in the past just notices that something is not right. Work-up in the emergency room revealed creatinine just above normal range without any prior values for comparison. He had persistent nausea that had not improved with any medications and refused to try to take anything by mouth because of this. He developed some low-grade temperatures and associated mild tachycardia. CT of the chest abdomen and pelvis did not show any acute findings. Renal ultrasound Normal renal ultrasound. 2D Echo : -Normal left ventricular cavity size. Normal left ventricular systolic function. No regional wall motion abnormalities. Left ventricular ejection fraction is estimated at 65 %. Grade II/IV diastolic dysfunction, moderately elevated filling pressures. Moderately thickened mitral valve. No mitral valve stenosis. Moderate mitral valve regurgitation. Moderate aortic valve calcification. No aortic valve stenosis. Pulmonary artery systolic pressure is within normal limits. There is no pericardial effusion. Right atrial pressure is around 5 mm of mercury. Serial cardiac enzymes and EKGs were unrevealing. Nevertheless patient symptoms persisted. He was clinically felt to have some dehydration and likely viral illness. During the hospital stay further work-up was done, rapid Covid was negative, influenza was negative , lactic acid was 1.9. telemetry monitoring was normal. Serum creatinine was likely at his baseline 1.3. He was continued on IV hydration for dehydration. During the hospital stay his nausea resolved, he was able to tolerate diet. He remained afebrile throughout the hospital stay, continued to use his CPAP during the hospital stay. He was managed for possible viral illness, dehydration, possibly fatigue. He was also complaining of dry cough at the time of discharge which is possibly related to his postnasal drip v/s acute bronchitis.He was discharged on 3 days 250 mg azithromycin p.o. daily as well as Tessalon Perles. He was discharged in stable condition.He will continue to follow with his primary care physician as an outpatient. Patient responded well to the above medical management and is being discharged in stable condition. Imaging studies: CT aCT Abdomen And Pelvis Without Contrast: Liver: Normal. No mass. Gallbladder and bile ducts: Normal. No calcified stones. No ductal dilation. Pancreas: Normal. No ductal dilation. Spleen: Normal. No splenomegaly. Adrenal glands: Normal. No mass. Kidneys and ureters: Fat stranding around both kidneys, most likely age related process. No hydronephrosis. Moderate severity diffuse bilateral renal cortical atrophy. Symmetric contrast excretion from kidneys. No renal stones evident. No suspicious renal mass. Stomach and bowel: Moderate fecal volume. Mild diverticulosis coli. Negative for bowel obstruction. Negative for bowel perforation. No focal inflammatory wall thickening of bowel loops. Endoscopic clip in the right colon. Appendix: No evidence of appendicitis. Intraperitoneal space: Unremarkable. No free air. No significant fluid collection. Retroperitoneal space: No retroperitoneal hematoma. Vasculature: Abdominal aorta is nonaneurysmal with minimal atherosclerotic change. Lymph nodes: Unremarkable. No enlarged lymph nodes. Urinary bladder: Unremarkable as visualized. Reproductive: Unremarkable as visualized. Bones/joints: No significant osseous abnormality of lumbar spine or pelvis. Soft tissues: Lumbar paraspinal muscles are symmetric. IMPRESSION: No focal acute pathology in the abdomen or pelvis identified. CT angio chest PE protcl: Pulmonary arteries: Normal. No pulmonary emboli. Aorta: Unremarkable. No aortic aneurysm. No aortic dissection. Lungs: Unremarkable. No consolidation. No masses. Pleural spaces: Unremarkable. No pneumothorax. No pleural effusion. Heart: Unremarkable. No cardiomegaly. No pericardial effusion. Lymph nodes: Unremarkable. No enlarged lymph nodes. Bones/joints: Unremarkable. No acute fracture. Soft tissues: Unremarkable. IMPRESSION: No acute findings. Physical Exam Const: COMMON NORMALS: patient oriented x3 HENMT: COMMON NORMALS: normocephalic, atraumatic, hearing grossly normal bilaterally and external ears normal HEAD & SCALP: normocephalic and atraumatic EXTERNAL EAR: Yes external ears normal Eye: COMMON NORMALS: no scleral icterus GENERAL EYE: appearance normal, both eyes and all related structures Chest: COMMONS NORMALS: normal inspection of the chest and normal palpation of entire chest wall CHEST: Yes Symmetrical chest wall rise Resp: COMMON NORMALS: normal respiratory effort, No retractions, No use of accessory muscles and clear to auscultation bilaterally EFFORT & INSPECTION: Yes symmetric chest movement AUSCULTATION: clear to auscultation bilaterally Cardio: COMMON NORMALS: regular rate, regular rhythm, S1 normal heart sound present, S2 normal heart sound present, No gallops present (Cardio), No murmurs present (Cardio), No rub (Cardio) and Peripheral pulses 2+ throughout RATE: regular rate RHYTHM: regular rhythm HEART SOUNDS: S1 normal heart sound present and S2 normal heart sound present PERIPHERAL PULSES: Peripheral pulses 2+ throughout GI: COMMON NORMALS: Normal to inspection, nondistended, normoactive bowel sounds present, Soft to palpation, non-tender, No hepatosplenomegaly present and no masses AUSCULTATION: Yes normoactive bowel sounds PALPATION: Yes Soft to palpation and Yes No hepatosplenomegaly present RECTAL EXAM: Yes deferred Extremity: COMMON NORMALS: no clubbing, cyanosis or edema and no pedal edema Neuro: COMMON NORMALS: patient oriented x3 Discharge Data Data Completed and Pending: Completed Studies During Hospitalization Category Date Time Status CT angio chest PE protcl [id number] Urge nt Cat Scan 07/29/20 13:[address] kidney stone 7 [id number] Urgent Cat Scan 07/29/20 18:41 Completed XR chest 1V martin ble [id number] Urgent Exams 07/29/20 13:41 Completed CV echo complete* [id number] Routine Ultrasound 07/30/20 12:33 Completed Labs from last 24 hours 07/31/20 07/30/20 07/30/20 06:28 20:11 16:45 POC Glucose 179 H 174 H 180 H Vitals: Last Vital Signs Temp 99.0 F 07/31/20 07:38 Pulse 78 07/31/20 08:20 Resp 18 07/31/20 08:20 BP 144/85 07/31/20 07:38 Pulse Ox 93 07/31/20 08:20 Discharge Plan Discharge Patient Disposition: Home Condition: Stable Prescriptions: New azithromycin 250 mg tablet 250 mg PO DAILY 3 Days RF: 0 Tessalon Perles 100 mg capsule 100 mg PO BID PRN (Reason: cough) Qty: 14 RF: 0 Continued donepezil 10 mg tablet 10 mg PO BEDTIME RF: 0 Eliquis 5 mg tablet 5 mg PO BID RF: 0 Hold Instructions: Resume on 06/14/20. Lantus Solostar U-100 Insulin 100 unit/mL (3 mL) insulin pen 60 unit SUBCUT BID RF: 0 glipizide 10 mg tablet 10 mg PO BID RF: 0 lisinopril [Prinivil] 10 mg tablet 10 mg PO BEDTIME RF: 0 levothyroxine 112 mcg capsule 112 mcg PO QAM RF: 0 rosuvastatin 10 mg Tablet 10 mg PO BEDTIME RF: 0 hydrochlorothiazide 25 mg Tablet 25 mg PO QAM RF: 0 gabapentin 300 mg capsule See Rx Instructions .ROUTE .COMPLEX RF: 0 Ultram 50 mg Tablet 50 mg PO Q6H PRN (Reason: Pain) RF: 0 Tylenol 8 Hour 650 mg Tablet Extended Release 1,300 mg PO PRN RF: 0 vitamin B complex Tablet 1 tab PO DAILY RF: 0 testosterone cypionate 200 mg/mL oil 200 mg IM Q14D RF: 0 metformin 500 mg tablet extended release 24 hr 500 mg PO BID RF: 0 CoQ-10 100 mg Capsule 100 mg PO DAILY RF: 0 Vitamin C 1 tab PO DAILY RF: 0 folic acid 1 tab PO DAILY RF: 0 Discharge Orders: Discharge Order (Routine); Ordered 07/31/20 Ordered By: Shoaib Mayen Referrals: Freya Maguire DO [Primary Care Provider] - 08/13/20 10:00 am Discharge Diet: Diabetic Discharge Activity: Resume usual activity Patient Instructions: COPD, Benzonatate (By mouth), Azithromycin (By mouth), Deep Venous Thrombosis (GEN), COPD Stoplight Discharge Attestations Time Spent in Discharge Care*: less than 30 min Specific Discharge Activities: educating patient, educating and/or supporting family/caregiver, discussing with disease case manager/social workers/dc planners, documenting/other paperwork and evaluating patient/reviewing data Status at Discharge: Cognitive status at discharge: cognitively intact, Behavioral status at discharge: cooperative, Functional status at discharge: independent ambulation Overall status at discharge: patient is back to baseline Quality Metrics Clinical Quality Measures During this hospital stay, did patient experience: None Coding Level of Care Code Acute [facility] DC note Diagnoses Multiple complaints R68.89 Viral illness B34.9 Type 2 diabetes mellitus E11.65; Z79.4 Diabetes mellitus complication status: with hyperglycemia Diabetes mellitus terminal operator insulin use: with terminal operator use COPD (chronic obstructive pulmonary disease) J44.9 COPD type: unspecified COPD DVT (deep venous thrombosis) I82.409 Essential hypertension I10 Hyperlipidemia E78.5 Hyperlipidemia type: unspecified Chronic anticoagulation Z79.01 Hypothyroidism E03.9 Hypothyroidism type: acquired Low testosterone in male R79.89 Palpitations R00.2
[2020-07-31 11:19] LABS: Glucose Point of Care 223 mg/dL (70-110)
--- NOTE | 2020-07-31 16:00 | PC.NURSE ---
Patient is A&Ox3. Respirations even and non-labored on room air. Patient ambulated to the first floor without difficulty.
== END 2020-07-31 16:00 | disposition home or self-care (01) ==
LOC: ER 22:20 → MEDSURG 23:07
PROVIDERS: Physician Assistant; Admitting Provider Hospitalist; Emergency Provider Family Medicine; PCP Family Medicine; Visit Provider Internal Medicine
DX: R68.89 Other general symptoms and signs (principal); B34.9 Viral infection, unspecified; E11.65 Type 2 diabetes mellitus with hyperglycemia; Z79.4 Long term (current) use of insulin; J44.9 Chronic obstructive pulmonary disease, unspecified; I82.409 Acute embolism and thrombosis of unspecified deep veins of unspecified lower extremity; I10 Essential (primary) hypertension; E78.5 Hyperlipidemia, unspecified; Z79.01 Long term (current) use of anticoagulants; E03.9 Hypothyroidism, unspecified; R79.89 Other specified abnormal findings of blood chemistry; R00.2 Palpitations; Z86.718 Personal history of other venous thrombosis and embolism; Z86.711 Personal history of pulmonary embolism
CPT/HCPCS: 36415; 36416; 71045; 71275; 74176; 80053; 81003; 82009; 82550; 82962; 83605; 83690; 83735; 83880; 84443; 84484; 85025; 87426; 87804; 93005; 93306; 96361; 96372; 96374; 96375; 99285; G0378; J1815 ×2; J2405; J2550; J3490; J7030; Q9967

== ENCOUNTER → 2020-08-27 09:12 | Outpatient (BNVA) | payer MEDICARE, SELFPAY | PROVIDERS: PCP Family Medicine; Referring Provider Registered Nurse; Visit Provider Orthopaedic Surgery | DX: M25.512 Pain in left shoulder (principal) | CPT/HCPCS: 73030 ==

== ENCOUNTER → 2020-09-01 08:42 | Outpatient (BNVA) | payer MEDICARE, SELFPAY | PROVIDERS: PCP Family Medicine; Referring Provider Registered Nurse; Visit Provider Urology | DX: R97.20 Elevated prostate specific antigen [PSA] (principal); N20.9 Urinary calculus, unspecified; N52.9 Male erectile dysfunction, unspecified; R79.89 Other specified abnormal findings of blood chemistry; Z80.42 Family history of malignant neoplasm of prostate; F17.210 Nicotine dependence, cigarettes, uncomplicated | CPT/HCPCS: 81003; 84153 ==

== ENCOUNTER → 2020-09-02 10:01 | Outpatient (BNVA) | payer MEDICARE, SELFPAY | PROVIDERS: PCP Family Medicine; Referring Provider Orthopaedic Surgery; Visit Provider Orthopaedic Surgery | DX: M54.2 Cervicalgia (principal) | CPT/HCPCS: 72050 ==

== ENCOUNTER → 2020-09-11 12:47 | Outpatient (BNVA) | payer MEDICARE, SELFPAY | PROVIDERS: PCP Family Medicine; Referring Provider Orthopaedic Surgery; Visit Provider Anesthesiology Pain Medicine | DX: M47.22 Other spondylosis with radiculopathy, cervical region (principal); M54.9 Dorsalgia, unspecified; F17.210 Nicotine dependence, cigarettes, uncomplicated; Z79.891 Long term (current) use of opiate analgesic | CPT/HCPCS: 99205 ==

== ENCOUNTER → 2020-09-18 12:46 | Outpatient (BNVA) | payer MEDICARE, SELFPAY | PROVIDERS: PCP Family Medicine; Visit Provider Anesthesiology Pain Medicine | DX: Z01.812 Encounter for preprocedural laboratory examination (principal); M54.2 Cervicalgia; E11.9 Type 2 diabetes mellitus without complications; Z79.891 Long term (current) use of opiate analgesic | CPT/HCPCS: 62321; J1100 ==

== ENCOUNTER 2020-09-23 08:59 | Outpatient (CLI) | payer MEDICARE, SELFPAY ==
--- NOTE | 2020-09-23 09:30 | MR_ITS ---
WS: [id number] MRI CERVICAL SPINE NONCONTRAST HISTORY: M54.2 - Cervicalgia COMPARISON: None available. Technique: Multiplanar, multisequence noncontrast imaging of the cervical spine. Less than 2 mm anterolisthesis of C6 and C7. No acute marrow edema or fracture. Signal within the cord is normal. Moderate disc desiccation throughout the cervical spine. Craniocervical junction, C1 and C2 relationship, odontoid process and soft tissues are normal. C2-C3: Normal. C3-C4: Moderate annular disc bulging and osteophytic ridging. Moderate bilateral foraminal stenosis, RIGHT greater than LEFT. Very mild central stenosis. C4-C5: Mild annular disc bulging and osteophytic ridging. Mild central and LEFT foraminal stenosis. M oderate RIGHT foraminal stenosis. C5-C6: Diffuse annular disc bulging and osteophytic ridging. Mild central and bilateral foraminal ho nosis due to disc osteophytes. C6-C7: Diffuse asymmetric disc bulging, greatest to the LEFT. Additional osteophytic ridging around t he vertebral bodies. There is disc contacting the ventral thecal sac resulting in moderate central an d bilateral foraminal stenosis. C7-T1: Mild annular disc bulging with no central stenosis. Mild bilateral foraminal stenosis, RIGHT g reater than LEFT. Paraspinal soft tissue are normal. MR/MR cervical spin wo con* [id number] IMPRESSION: 1. Multilevel mild to moderate degenerative disc disease and spondylitic villalba es. 2. Moderate central and bilateral foraminal stenosis at C6-7 due to disc osteo phyte disease. 3. Moderate RIGHT foraminal stenosis at C4-5 with mild central and LEFT forami nal stenosis. 4. Moderate bilateral foraminal stenosis, RIGHT greater than LEFT at C3-4. 5. Mild central and bilateral foraminal stenosis at C5-6 and mild bilateral fo raminal stenosis at C7-T1.
== END 2020-09-23 09:00 | disposition home or self-care (01) ==
LOC: RADSHAW 09:03
PROVIDERS: PCP Family Medicine; Visit Provider Orthopaedic Surgery
DX: M48.02 Spinal stenosis, cervical region (principal); M25.78 Osteophyte, vertebrae; M50.30 Other cervical disc degeneration, unspecified cervical region
CPT/HCPCS: 72141

== ENCOUNTER 2020-11-28 17:38 | Outpatient (CLI) | payer MEDICARE, SELFPAY ==
--- NOTE | 2020-11-28 | XRR_ITS ---
PROCEDURE INFORMATION: Exam: XR Abdomen Exam date and time: 11/28/2020 12:00 AM Age: 70 years old Clinical indication: Abdominal pain; Localized; Right lower quadrant (rlq); Additional info: Acute rlq pain TECHNIQUE: Imaging protocol: XR of the abdomen. Views: Frontal supine view of the abdomen. 1 View. COMPARISON: CT kidney stone [id number] 07/29/2020 7:38 PM FINDINGS: Gastrointestinal tract: Normal. No bowel dilation. Bones/joints: Unremarkable. XR/XR abdomen 1V* [id number] IMPRESSION: No acute findings.
== END 2020-11-28 17:39 | disposition home or self-care (01) ==
LOC: RAD 17:44
PROVIDERS: PCP Family Medicine; Visit Provider Family Medicine
DX: R10.31 Right lower quadrant pain (principal)
CPT/HCPCS: 74018

== ENCOUNTER 2020-12-05 17:30 | Outpatient (CLI) | payer MEDICARE, SELFPAY ==
--- NOTE | 2020-12-05 17:38 | XR_ITS ---
WS: [id number] XR lumbar spine 2-3V* [id number] REASON FOR EXAM: MIDLINE LOW BACK PAIN FINDINGS: No significant focal vertebral body abnormality, no compression deformity. Very mild rotatory scoliosis convex right. Mild narrowing of the disc spaces from L1 to S1. Mild degenerative changes in the facet joints L4-L5 and L5-S1. No spondylolysis or spondylolisthesis. XR/XR lumbar spine 2-3V* [id number] IMPRESSION: Mild changes of degenerative lumbar disc disease as above.
== END 2020-12-05 17:31 | disposition home or self-care (01) ==
PROVIDERS: Visit Provider Family Medicine
DX: M54.41 Lumbago with sciatica, right side (principal); M54.42 Lumbago with sciatica, left side; G89.29 Other chronic pain
CPT/HCPCS: 72100

== ENCOUNTER 2021-03-05 09:48 | Outpatient (CLI) | payer MEDICARE, SELFPAY ==
--- NOTE | 2021-03-05 09:30 | XR_ITS ---
WS: [id number] KUB, AP view, 03/05/2021 Clinical Data: UROLITHIASIS Comparison: KUB, 11/28/2020. Findings: No abnormal intraabdominal masses or calcifications are seen. There is no dilatated small bowel or ev idence of obstruction. There is a large amount of fecal material in the transverse colon. XR/XR KUB [id number] Impression: Negative KUB.
== END 2021-03-05 09:49 | disposition home or self-care (01) ==
LOC: RAD 09:49
PROVIDERS: PCP Family Medicine; Visit Provider Urology
DX: Z12.5 Encounter for screening for malignant neoplasm of prostate (principal); N20.9 Urinary calculus, unspecified
CPT/HCPCS: 74018; 81003; 84153; 84403

== ENCOUNTER 2021-08-31 08:01 | Outpatient (CLI) | payer MEDICARE, SELFPAY ==
--- NOTE | 2021-08-31 08:10 | MR_ITS ---
WS: [id number] MRI NECK with and without CONTRAST. COMPARISON: None Multiplanar, multisequence imaging is performed with contrast. Sagittal and axial T1 fat sat sequenc es post-MultiHance 20 cc IV. No soft tissue masses or abnormal enhancement identified throughout the larynx. The torus tubarius an d fossa of Rosenmuller are normal. No abnormality at the palatine and lingular tonsils. Epiglottis is symmetric bilaterally. There are no focal areas of abnormal enhancement. No cervical chain lymphaden opathy. No enhancing masses visualized. The visualized parotid glands and thyroid gland are normal. N o discrete abnormality at the tongue base although there is motion artifact. Swallowing and motion ar tifact noted on this examination. Moderate-sized LEFT middle cranial fossa arachnoid cyst measures 5.3 x 4.8 cm. Degenerative disc disease and cervical spondylosis. There is mild disc and osteophyte encroachment up on the cervical cord at C3-4 and C5-6. MR/MR orbit face neck wo/w* [id number] IMPRESSION: 1. No cervical chain adenopathy or laryngeal mass identified. 2. If there is continued concern for laryngeal mass or supraglottic mass consi rekha CT evaluation with contrast. Patient had a difficult time not swallowing du ring the MRI due to the long examination time. Subtle masses may be obscured. T ongue lesion would be difficult to visualize with this amount of motion. 3. Moderate-sized LEFT middle cranial arachnoid cyst.
[2021-08-31] MEDS: gadobenate dimeglumine 20 mL vial IV (10:17)
== END 2021-08-31 08:02 | disposition home or self-care (01) ==
LOC: RAD 08:03
PROVIDERS: PCP Family Medicine; Visit Provider Specialist
DX: D10.6 Benign neoplasm of nasopharynx (principal); G93.0 Cerebral cysts
CPT/HCPCS: 70543

== ENCOUNTER 2021-11-19 11:57 | Outpatient (CLI) | payer MEDICARE, SELFPAY ==
--- NOTE | 2021-11-19 12:07 | MR_ITS ---
WS: [id number] MRI BRAIN WITH AND WITHOUT CONTRAST HISTORY: CEREBRAL CYSTS COMPARISON: None available. TECHNIQUE: Multiplanar imaging performed through the brain with MultiHance 1 ml's IV. No acute infarcts are seen. Gill-white matter differentiation is well preserved. Minimal small vessel ischemic changes. No prior infarct. No susceptibility artifacts or prior lacunar infarcts. There is a large extra-axial mass centered in the LEFT anterior middle cranial fossa with mass effect upon the LEFT temporal lobe. This mass follows CSF on all sequences and measures 5.3 x 4.7 x 5.5 cm. There is posterior displacement of the temporal lobe with widening of the sylvian fissure. Mass exte nds to the midline adjacent to the LEFT optic nerve. No displacement of the midline structures. There is some very mild remodeling of the anterior LEFT temporal bone with slight bulging towards the post erior orbit. The middle cerebral artery is being displaced posteriorly by this arachnoid cyst. Clivus and pituitary gland are normal. Visualized posterior fossa and brainstem are also normal. Postcontrast images are negative for masses or vascular malformations. No enhancement of the middle c ranial fossa cyst. Dural venous sinuses are normal. Paranasal sinuses: Mucoperiosteal thickening throughout the paranasal sinuses. No air-fluid levels. Mastoid air cells: Normal. Calvarium and scalp: Normal. MR/MR head wo/w con [id number] IMPRESSION: 1. Large LEFT anterior middle cranial fossa arachnoid cyst measures 5.3 x 4.7 x 5.5 cm. There is mass effect upon the LEFT temporal lobe and LEFT middle cere bral artery and the anterior temporal bone. 2. No hydrocephalus. 3. Typically arachnoid cysts are asymptomatic unless very large. This is a lar ge cyst and could be causing some mass effect or pressure symptoms. 4. Otherwise very mild small vessel ischemic disease.
[2021-11-19] MEDS: gadobenate dimeglumine 5 mL vial IV (12:56)
== END 2021-11-19 11:58 | disposition home or self-care (01) ==
LOC: RAD 11:58
PROVIDERS: PCP Family Medicine; Visit Provider Specialist
DX: G93.0 Cerebral cysts (principal); J34.9 Unspecified disorder of nose and nasal sinuses
CPT/HCPCS: 70553

== ENCOUNTER 2022-03-04 10:58 | Outpatient (CLI) | payer MEDICARE, SELFPAY ==
[2022-03-04 12:16] LABS: Testosterone Total 373.5 ng/dL (193-740)
[2022-03-04 12:17] LABS: PSA Screen - Urology 1.24 ng/mL (0-4)
== END 2022-03-04 10:59 | disposition home or self-care (01) ==
LOC: LAB 10:59
PROVIDERS: PCP Family Medicine; Visit Provider Urology
DX: R79.89 Other specified abnormal findings of blood chemistry (principal); Z12.5 Encounter for screening for malignant neoplasm of prostate; N20.9 Urinary calculus, unspecified; Z80.42 Family history of malignant neoplasm of prostate; N52.9 Male erectile dysfunction, unspecified; R39.9 Unspecified symptoms and signs involving the genitourinary system
CPT/HCPCS: 81003; 84403; 99214; G0103

== ENCOUNTER → 2022-04-13 15:17 | Outpatient (BNVA) | payer MEDICARE, SELFPAY | PROVIDERS: PCP Family Medicine; Visit Provider Podiatrist Foot & Ankle Surgery | DX: E11.42 Type 2 diabetes mellitus with diabetic polyneuropathy (principal); L03.032 Cellulitis of left toe; Z79.84 Long term (current) use of oral hypoglycemic drugs; Z79.4 Long term (current) use of insulin | CPT/HCPCS: 11730; 99213 ==

== ENCOUNTER → 2022-04-19 15:22 | Outpatient (BNVA) | payer MEDICARE, SELFPAY | PROVIDERS: PCP Family Medicine; Visit Provider Podiatrist Foot & Ankle Surgery | DX: E11.42 Type 2 diabetes mellitus with diabetic polyneuropathy (principal); Z79.84 Long term (current) use of oral hypoglycemic drugs; Z79.4 Long term (current) use of insulin; L03.039 Cellulitis of unspecified toe | CPT/HCPCS: 73630; 99213 ==

== ENCOUNTER 2022-05-27 14:06 | Outpatient (CLI) | payer MEDICARE, SELFPAY ==
[2022-05-27 15:12] LABS: Testosterone Total - Urology 784 ng/mL (300-1000)
== END 2022-05-27 14:07 | disposition home or self-care (01) ==
LOC: LAB 14:10
PROVIDERS: PCP Family Medicine; Visit Provider Urology
DX: R79.89 Other specified abnormal findings of blood chemistry (principal)
CPT/HCPCS: 36415; 84403

== ENCOUNTER → 2022-06-01 16:15 | Outpatient (BNVA) | payer MEDICARE, SELFPAY | PROVIDERS: PCP Family Medicine; Visit Provider Urology | DX: R39.9 Unspecified symptoms and signs involving the genitourinary system (principal); N20.9 Urinary calculus, unspecified; R79.89 Other specified abnormal findings of blood chemistry; Z80.42 Family history of malignant neoplasm of prostate; N52.9 Male erectile dysfunction, unspecified | CPT/HCPCS: 81003; 99213 ==

== ENCOUNTER 2022-06-29 06:49 | Outpatient (CLI) | payer MEDICARE, SELFPAY ==
--- NOTE | 2022-06-29 07:30 | MR_ITS ---
WS: [id number] MRI LUMBAR SPINE NONCONTRAST TECHNIQUE: Sagittal T1, T2 and STIR imaging. Axial T1 and T2 imaging. CLINICAL INFORMATION: CHRONIC RIGHT-SIDED LOW BACK PAIN COMPARISON: None. FINDINGS: Mild lumbar curve. No acute compression. Disc bulging worse at L4-L5. Slight anterolisthesis L4 on L5 . L1-L2: Normal. L2-L3: Mild annular bulging with a tiny annular fissure. Mild facet arthropathy. Spinal canal and for amen are patent. L3-L4: Mild annular bulge with a tiny central protrusion. Mild central canal stenosis. Slight impinge ment traversing L4 nerve roots bilaterally. Mild facet arthropathy. Foramen are patent. L4-L5: Mild disc bulging with a RIGHT pericentral protrusion. Mild central canal stenosis. Impingemen t traversing RIGHT L5 nerve root. Mild RIGHT and no significant LEFT foraminal narrowing. Moderate fa cet arthropathy. L5-S1: Mild annular bulging with a tiny central protrusion. Slight contact of the LEFT S1 nerve root. Foramen are patent. Mild facet arthropathy. Visualized pelvic bony structures: Normal. Paravertebral soft tissues: Normal. MR/MR lumbar spine wo con* [id number] IMPRESSION: 1. RIGHT pericentral disc protrusion L4-L5 impinges the traversing RIGHT L5 ne rve root in the subarticular recess. Mild central canal stenosis. Mild RIGHT L4 -L5 foraminal narrowing. 2. Shallow central protrusion L3-L4 with mild central canal stenosis. 3. Tiny LEFT pericentral protrusion L2-L3 with a tiny annular fissure. 4. Tiny LEFT pericentral protrusion L5-S1 slightly contacts the LEFT S1 nerve root. 5. Mild facet arthropathy L3-L4 and L4-L5.
== END 2022-06-29 06:50 | disposition home or self-care (01) ==
LOC: RAD 06:54
PROVIDERS: PCP Family Medicine; Visit Provider Nurse Practitioner Family
DX: M54.41 Lumbago with sciatica, right side (principal)
CPT/HCPCS: 72148

== ENCOUNTER → 2022-07-22 09:05 | Outpatient (BNVA) | payer MEDICARE, SELFPAY | PROVIDERS: PCP Family Medicine; Visit Provider Anesthesiology Pain Medicine | DX: M47.22 Other spondylosis with radiculopathy, cervical region (principal); M51.16 Intervertebral disc disorders with radiculopathy, lumbar region; M79.605 Pain in left leg | CPT/HCPCS: 99215 ==

== ENCOUNTER → 2022-08-02 13:39 | Outpatient (BNVA) | payer MEDICARE, SELFPAY | PROVIDERS: PCP Family Medicine; Visit Provider Anesthesiology Pain Medicine | DX: M54.16 Radiculopathy, lumbar region (principal) | CPT/HCPCS: 64483; 64484; J1100; J3490 ==

== ENCOUNTER → 2022-08-05 08:41 | Outpatient (BNVA) | payer MEDICARE, SELFPAY | PROVIDERS: PCP Family Medicine; Referring Provider Nurse Practitioner Family; Visit Provider Orthopaedic Surgery | DX: M51.36 Other intervertebral disc degeneration, lumbar region (principal); M48.062 Spinal stenosis, lumbar region with neurogenic claudication | CPT/HCPCS: 72110; 99214 ==

== ENCOUNTER 2022-08-27 05:56 | Day surgery (SDC) | payer MEDICARE, SELFPAY ==
--- NOTE | 2022-08-23 13:56 | ECG_ITS ---
[facility] Test Date: 2022-08-23 Pat Name: Bill Patel Department: Room: Gender: Male [employer] Worker: : 1950 Requested By: Lennie Nunez Order Number: [id number] Annika MD: Chino Isaacs M.D. Measurements Intervals [place] Rate: 75 P: 74 NH: 179 QRS: 22 QRSD: 102 T: 52 QT: 375 QTc: 420 Interpretive Statements SINUS RHYTHM WITH SINUS ARRHYTHMIA NONSPECIFIC T-WAVE ABNORMALITY Compared to ECG 07/29/2020 16:22:32 T-wave abnormality now present Sinus tachycardia no longer present Left ventricular hypertrophy no longer present ST (T wave) deviation no longer present Electronically Signed On 08-23-2022 23:49:33 CDT by Chino Isaacs M.D. [id number]
[2022-08-23 14:05] VITALS: BMI 34.6
[2022-08-23 14:14] LABS: Basophils # 0.1 10^3/uL (0.0-0.1); Basophils % 0.6 %; Eosinophils # 0.1 10^3/uL (0.0-0.8); Eosinophils % 0.8 %; Hematocrit 42.1 % (42.0-52.0); Hemoglobin 13.3 g/dL (11.7-16.6); Lymphocytes # 1.3 10^3/uL (0.8-4.8); Lymphocytes % 14.4 %; Mean Corpuscular HGB Conc 31.6 g/dL (30.0-36.0); Mean Corpuscular Hemoglobin 26.6 pg (28.0-34.0); Mean Corpuscular Volume 84.2 fl (80-94); Mean Platelet Volume 9.8 fL (7.4-10.4); Monocytes # 0.7 10^3/uL (0.2-0.9); Monocytes % 8.3 %; Neutrophils # 6.58 10^3/uL (1.8-7.7); Neutrophils % 75.4 %; Nucleated Red Blood Cells % 0 %; Platelet Count 230 10^3/cmm (130-400); Red Cell Distribution Width 15.3 % (12.1-15.1); White Blood Count 8.7 10^3/uL (4.0-10.0)
--- NOTE | 2022-08-23 14:19 | P.ANESASSM_ITS ---
Pre-Anesthetic Assessment Height/Weight: Height 1.79 m Weight 111.13 kg Preop Diagnosis: Screening colonoscopy Operation Date: 08/27/22 08:30 Proposed Procedures p Lumbar Spine Decompression: L3/4 L4/5 [id number], M48.062(Not Applicable) - Gilmer Villegas DO Familial anesthetic complications: None Social Tobacco and No alcohol Exam alert, oriented x 3, clear to auscultation bilaterally and regular rate & rhythm Airway Mallampati: Class II Dentition: full Pulmonary Chronic Obstructive Pulmonary Disease and Sleep Apnea CV/HEM Deep Vein Thrombosis and Hypertension moderate MVR Metabolic Thyroid Disease Anesthetic Plan ASA status: 3 Anesthesia: General Risk of > 500 ml blood loss (7ml/kg in children): No Medications/Allergies Home Medications Medication Instructions Recorded Confirmed Last Taken Type apixaban 5 mg tablet (Eliquis) 5 mg PO BID 06/02/20 08/23/22 08/23/22 History levothyroxine 112 mcg capsule 112 mcg PO QAM 06/02/20 08/23/22 08/23/22 History lisinopril 10 mg tablet (Prinivil) 10 mg PO BEDTIME 06/02/20 08/23/22 08/23/22 History hydrochlorothiazide 25 mg tablet 25 mg PO QAM 06/05/20 08/23/22 08/23/22 History rosuvastatin 10 mg tablet 10 mg PO BEDTIME 06/05/20 08/23/22 08/23/22 History acetaminophen 650 mg 1,300 mg PO PRN PRN Pain 07/29/20 08/23/22 08/23/22 History tablet,extended release (Tylenol 8 Hour) testosterone cypionate 200 mg/mL 200 mg IM Q9D 07/29/20 08/23/22 08/19/22 History intramuscular oil Vitamin C 1 tab PO DAILY PRN Outbreak 03/05/21 08/23/22 08/09/22 History gabapentin 300 mg capsule 900 mg PO BEDTIME 03/05/21 08/23/22 08/23/22 History metformin 750 mg tablet,extended 1,500 mg PO QAM 03/05/21 08/23/22 08/23/22 History release 24 hr vitamin B complex 1 tab PO DAILY PRN Outbreak 03/05/21 08/23/22 08/09/22 History dapagliflozin 5 mg tablet (Farxiga) 5 mg PO DAILY 10/20/22 04/10/23 04/10/23 History donepezil 10 mg tablet 15 mg PO BEDTIME 03/04/22 08/23/22 08/23/22 History insulin glargine 100 unit/mL (3 65 unit SUBCUT BID 03/04/22 08/23/22 08/23/22 History mL) subcutaneous pen (Lantus Solostar U-100 Insulin) tadalafil 20 mg tablet 20 mg PO DAILY PRN sexual activity 03/04/22 08/23/22 08/23/22 Rx #20 tabs cholecalciferol (vitamin D3) 10 10 mcg PO DAILY PRN Outbreak 06/01/22 08/23/22 08/09/22 History mcg (400 unit) capsule ammonium lactate 12 % topical cream 1 applic topical BID PRN Outbreak 08/23/22 08/23/22 Unknown History anastrozole 1 mg tablet 1 mg PO DAILY 08/23/22 08/23/22 08/23/22 History ketoconazole 2 % shampoo 1 applic topical Q14D PRN Outbreak 08/23/22 08/23/22 08/23/22 History ketoconazole 2 % topical cream 1 applic topical BID PRN Outbreak 08/23/2208/2308/23/22 History metformin 500 mg tablet,extended 500 mg PO BEDTIME 08/23/22 08/23/22 08/23/22 History release 24 hr modafinil 200 mg tablet 200 mg PO DAILY 08/23/22 08/23/22 08/23/22 History xhcrtnyyjqep-kyx-dxtxo acid-vit 1 tab PO DAILY 08/23/22 08/23/22 08/23/22 History K-lycop 400 mcg-20 mcg-370 mcg tablet (Men's 50 Plus Daily Formula) mupirocin 2 % topical ointment 1 applic topical BID PRN Outbreak 08/23/22 08/23/22 08/23/22 History xlrlpjnp-cymojdcuq-bzbiltaj 3.5 2 drp ophthalmic (eye) QID 08/23/22 08/23/22 08/23/22 History mg/mL-10,000 unit/mL-0.1% eye drops tramadol 50 mg tablet 50 mg PO Q6H PRN Pain 08/23/22 08/23/22 07/23/22 History Allergies Allergy/AdvReac Type Severity Reaction Status Date / Time sulfamethoxazole Allergy Rash Verified 08/05/22 08:46 [From Bactrim] trimethoprim [From Bactrim] Allergy Rash Verified 08/05/22 08:46 oats AdvReac Severe severe Verified 08/05/22 08:46 diarhea [facility] Anesthesia Medical History Chronic anticoagulation Eliquis Colon polyps COPD (chronic obstructive pulmonary disease) Diverticulosis DVT (deep venous thrombosis) Erectile dysfunction Essential hypertension Family history of Alzheimer's disease Has been on Aricept for a long time related to this and some concerning symptoms years ago Family history of prostate cancer History of thromboembolism History of DVT and PE in the past, on chronic Eliquis Hx of back injury Hyperlipidemia Hypothyroidism Low testosterone in male Lower urinary tract symptoms (LUTS) Multiple complaints Palpitations Personal history of kidney stones Type 2 diabetes mellitus Urolithiasis Viral illness Surgical History H/O transurethral resection of prostate History of eye surgery Hx of oral surgery Hx of shoulder surgery Hx of vasectomy Hx of wisdom tooth extraction Family History Mother Dementia Father , AT AGE 89 CHF (congestive heart failure) Diabetes Social History Smoking and tobacco status: former smoker Alcohol intake: current Alcohol intake frequency: few times a week Household members: spouse Marital status: Current occupational status: employed Data Anesthesia 08/23/22 13:55 08/23/22 13:55 Short CBC 08/23/22 Range/Units 13:55 WBC 8.7 (4.0-10.0) 10^3/uL Hgb 13.3 (11.7-16.6) g/dL Hct 42.1 (42.0-52.0) % MCV 84.2 (80-94) fl Plt Count 230 (130-400) 10^3/cmm Neut % (Auto) 75.4 % Neut # (Auto) 6.58 (1.8-7.7) 10^3/uL Cardiac Studies: Echocardiogram Ultrasound 07/30/20
[2022-08-23 14:35] LABS: Anion Gap 13.8 (5-19); Blood Urea Nitrogen 18 mg/dL (8-23); Calcium 9.3 mg/dL (8.5-10.5); Carbon Dioxide 26 mmol/L (22-29); Chloride 94 mmol/L (98-107); Glucose 187 mg/dL (65-115); Osmolality Calculated 277 mOsm/kg (285-295); Potassium 3.8 mmol/L (3.5-5.1); Sodium 130 mmol/L (136-145)
[2022-08-27] VITALS (10 sets, daily range): BP systolic 119–157; BP diastolic 71–87; PULSE 80–101; RESP 16–18; TEMP 36.1–36.7; O2SAT 92–99
[2022-08-27] MEDS: sodium chloride 0.9% 1,000 ML 30 ML IV (06:26)
[2022-08-27 06:31] LABS: Glucose Point of Care 158 mg/dL (70-110)
--- NOTE | 2022-08-27 06:34 | W.PM.OPSUD ---
Surgery/Procedure H&P Update DATE OF PROCEDURE: August 27, 2022 DATE H&P PERFORMED: 08/05/22 H&P UPDATE INFORMATION: I have reviewed H&P completed within last 30 days, I have examined patient prior to procedure and No changes to prior documentation PREOP DIAGNOSIS: Lumbar stenosis with neurogenic claudication PLANNED PROCEDURE: Operation Date: 08/27/22 07:00 Proposed Procedures p Lumbar Spine Decompression: L3/4 L4/5 [id number], M48.062(Not Applicable) - Gilmer Villegas DO
[2022-08-27] MEDS: ceFAZolin 2,000 MG in sodium chloride 0.9% (plus) 50 ML 100 MG IV (06:58)
--- NOTE | 2022-08-27 07:26 | P.ANESUD_ITS ---
Pre-Anesthetic Update Pre-Anesthetic Assessment: Date of Surgery/Procedure: 08/27/22 Preop Laisha gnosis: Lumbar stenosis with neurogenic claudication Proposed Procedure: Operation Date: 08/27/22 07:00 Proposed Procedures p Lumbar Spine Decompression: L3/4 L4/5 [id number], M48.062(Not Applicable) - Gilmer Villegas, DO Any changes to Pre-Anesthetic Assessment?: No Last Intake: Intake Last Liquid Date 08/26/22 Last Liquid Time 22:00 Last Solid Date 08/26/22 Last Solid Time 20:00 Vitals: Temperature 97 F L 08/27/22 06:11 Temperature Source Temporal Artery S can 08/27/22 06:11 Pulse Rate 80 08/27/22 06:11 Respiratory Rate 16 08/27/22 06:11 Blood Pressure 153/85 08/27/22 06:11 Blood Pressure Stephanie n 107 08/27/22 06:11 Pulse Oximetry 97 08/27/22 06:11 Oxygen Delivery Me thod Room Air 08/27/22 06:12 Exam: Pre-Anes Outpt Exam: alert, oriented x 3, clear to auscultation bilaterally and regular rate & rhythm Cardiac Studies: Echocardiogram Ultrasound 07/30/20
[2022-08-27] MEDS: lidocaine-epi 1% 20 mL INJ INJECTION (07:32)
--- NOTE | 2022-08-27 08:35 | PC.NURSE ---
Pt arrived to PACU, oral airway removed at this time, tolerated well. Pt denies any pain or nausea at this time. Able to move all extremities. Good pedal pulses bilaterally. Dressing C/D/I.
--- NOTE | 2022-08-27 08:40 | XR_ITS ---
WS: [id number] EXAMINATION: XR lumbar spine 2-3V* [id number] REASON FOR EXAM: OR PICS COMPARISON: None available. ORDER DATE: 08/27/2022 8:40 AM FINDINGS: Surgical instrumentation is placed over the L4-5 disc space XR/XR lumbar spine 2-3V* [id number] IMPRESSION: Total fluoroscopy time 26.5 seconds
--- NOTE | 2022-08-27 08:44 | P.OP_ITS ---
Operative Report Date of procedure: August 27, 2022 Pre-op diagnosis: Preop Diagnosis Lumbar stenosis with neurogenic claudication Post-op diagnosis: same Procedure done: 1. L3/4 laminectomy with partial facetectomies 2. L4/5 revision laminectomies with partial facetectomies Surgeon: Gilmer Villegas Snowboard Designer: none Estimated blood loss (mL): 15 Procedure: 1. L3/4 laminectomy with partial facetectomies 2. L4/5 revision laminectomies with partial facetectomies Patient is brought to the operative suite. After undergoing anesthesia they are placed in the prone position. All areas of impingement are well padded. Patient is then prepped and draped in the normal sterile fashion. A skin incision is made over the L3/4 level. This is confirmed under c-arm guidance. A series of dilators are passed and the tubular retractor is docked on the L3 lamina. A bovie is used to clear the soft tissue off the lamina and the L 3/4 facet joint. A high speed herlinda is then used to perform the laminectomy and take down the medial aspect of the L 3/4 facet joint. A kerrison rongeure was then used to take down the remaining lamina and smooth the edged of the laminectomy up to the point where the ligamentum flavum attaches. Attention was then brought to the medial aspect of the facet joint. The remaining medial aspect of the superior and inferior aspect of the facet joint were taken down with the kerrison from the pedicle of L3 to L 4. The facet joint had significant hypertrophy. Attention was then brought to the Ligamentum Flavum. The ligament was taken down from the lamina of L3 to L4 and out medially to the remaining facet joint. The ligament was thick. The dura was then exposed. The dura was in good repair. The L3 nerve was then traced with a curette out the L3/4 foramen and found to be adequately decompressed. The L4 nerve was traced with a curette around the L4 pedicle. The lateral recess was opened with a kerrison helping to further decompress the L4 nerve. The tubular retractor was then tilted to the contralateral side. The bovie was used to take down the soft tissue on the spinous process. The high speed herlinda was used to take down the spinous process and then the contralateral lamina of L3. The kerrison rongeur was used to take down the remaining lamina to the point where the ligamentum flavum attached and the ligamentum flavum was taken down from L3 to L4. The kerrison rongeur was then used to reach across and take down the medial aspect of the contralateral L3/4 facet joint.The currete was used to trace the contralateral L3 nerve out the L3/4 foramen to make sure it was decompressed adequatesly and the L4 was traced around the L4 pedicle. The lateral recess was opened further with the kerrison to ensure the L4 is martina quately decompressed. Wound is then irrigated copiously with saline and surgiflo is used to stop any bleeding. The tubular retractor is removed and the A skin incision is made over the L4/5 level. This is confirmed under c-arm guidance. A series of dilators are passed and the tubular retractor is docked on the L4 lamina. A bovie is used to clear the soft tissue off the lamina and the L 4/5 facet joint. A high speed herlinda is then used to perform the laminectomy and take down the medial aspect of the L 4/5 facet joint. A kerrison rongeure was then used to take down the remaining lamina and smooth the edged of the laminectomy up to the point where the ligamentum flavum attaches. Attention was then brought to the medial aspect of the facet joint. The remaining medial aspect of the superior and inferior aspect of the facet joint were taken down with the kerrison from the pedicle of L4 to L 5. The facet joint had significant hypertrophy. Attention was then brought to the Ligamentum Flavum. The ligament was taken down from the lamina of L4 to L5 and out medially to the remaining facet joint. The ligament was thick. The dura was then exposed. The dura was in good repair. The L5 nerve was then traced with a curette out the L4/5 foramen and found to be adequately decompressed. The L5 nerve was traced with a curette around the L5 pedicle. The lateral recess was opened with a kerrison helping to further decompress the L5 nerve. The tubular retractor was then tilted to the contralateral side. The bovie was used to take down the soft tissue on the spinous process. The high speed herlinda was used to take down the spinous process and then the contralateral lamina of L4. The kerrison rongeur was used to take down the remaining lamina to the point where the ligamentum flavum attached and the ligamentum flavum was taken down from L4 to L5. The kerrison rongeur was then used to reach across and take down the medial aspect of the contralateral L4/5 facet joint.The currete was used to trace the contralateral L4 nerve out the L4/5 foramen to make sure it was decompressed adequatesly and the L5 was traced around the L5 pedicle. The lateral recess was opened further with the kerrison to ensure the L5 is adequately decompressed. Wound is then irrigated copiously with saline and surgiflo is used to stop any bleeding. The tubular retractor is removed and the wound is closed with vicryl and monocryl suture. Glue is then used to protect the wound. A sterile dressing is then placed. Patient was then placed in the supine position and transferred to the PACU in stable condition.
--- NOTE | 2022-08-27 08:50 | PC.NURSE ---
Dr Christianson notified of blood glucose of 168. Okay, that's fine.
[2022-08-27] MEDS: HYDROcodone-acetaminophen 5-325 mg Tablet 1 TAB PO (09:40)
--- NOTE | 2022-08-27 13:39 | ANE.PACU2 ---
Inpatient post-anesthesia follow up: Airway intact: Yes Vital signs: Temperature 97.9 F Pulse Rate 88 Respiratory Rate 17 Blood Pressure 130/75 Pulse Oximetry 93 Oxygen Delivery Me thod Room Air Oxygen Flow Rate 6 Fraction of Inspir ed Oxygen Hydration adequate: Yes Nausea and vomiting: No Pain level: 4 Mental status: Baseline
[2022-08-27 15:39] LABS: Glucose Point of Care 168 mg/dL (70-110)
== END 2022-08-27 10:12 | disposition home or self-care (01) ==
PROVIDERS: Anesthesiology; PCP Family Medicine; Visit Provider Orthopaedic Surgery
PROC: (CPT 63005; principal; 2022-08-27 07:00)
DX: M48.062 Spinal stenosis, lumbar region with neurogenic claudication (principal); J44.9 Chronic obstructive pulmonary disease, unspecified; G47.30 Sleep apnea, unspecified; I10 Essential (primary) hypertension; E03.9 Hypothyroidism, unspecified; Z79.01 Long term (current) use of anticoagulants; E11.9 Type 2 diabetes mellitus without complications; Z79.84 Long term (current) use of oral hypoglycemic drugs; Z79.4 Long term (current) use of insulin; E78.5 Hyperlipidemia, unspecified; Z86.718 Personal history of other venous thrombosis and embolism; Z87.891 Personal history of nicotine dependence
CPT/HCPCS: 63047; 63048; 36416; 72100; 76000; 80048; 82962; 85025; 93005; J0690; J1170; J2370; J2704; J3010; J3490; J7030

== ENCOUNTER → 2022-09-02 10:26 | Outpatient (BNVA) | payer MEDICARE, SELFPAY | PROVIDERS: PCP Family Medicine; Visit Provider Physician Assistant | DX: Z98.890 Other specified postprocedural states (principal) | CPT/HCPCS: 72100; 99024 ==

== ENCOUNTER → 2022-10-07 08:57 | Outpatient (BNVA) | payer MEDICARE, SELFPAY | PROVIDERS: PCP Family Medicine; Visit Provider Orthopaedic Surgery | DX: Z47.89 Encounter for other orthopedic aftercare (principal) | CPT/HCPCS: 99024 ==

== ENCOUNTER 2022-10-14 09:42 | Outpatient (CLI) | payer MEDICARE, SELFPAY ==
[2022-10-14 10:11] LABS: Basophils # 0.1 10^3/uL (0.0-0.1); Basophils % 0.9 %; Eosinophils # 0.3 10^3/uL (0.0-0.8); Eosinophils % 4.4 %; Hematocrit 41.7 % (42.0-52.0); Hemoglobin 12.9 g/dL (11.7-16.6); Lymphocytes # 1.2 10^3/uL (0.8-4.8); Lymphocytes % 21.1 %; Mean Corpuscular HGB Conc 30.9 g/dL (30.0-36.0); Mean Corpuscular Hemoglobin 25.7 pg (28.0-34.0); Mean Corpuscular Volume 83.2 fl (80-94); Mean Platelet Volume 9.5 fL (7.4-10.4); Monocytes # 0.6 10^3/uL (0.2-0.9); Monocytes % 10.1 %; Neutrophils # 3.56 10^3/uL (1.8-7.7); Neutrophils % 63.1 %; Nucleated Red Blood Cells % 0 %; Platelet Count 238 10^3/cmm (130-400); Red Blood Count 5.01 10^6/uL (4.1-5.3); Red Cell Distribution Width 15.4 % (12.1-15.1); White Blood Count 5.6 10^3/uL (4.0-10.0)
[2022-10-14 10:54] LABS: Testosterone Total - Urology 993 ng/mL (300-1000)
== END 2022-10-14 09:43 | disposition home or self-care (01) ==
LOC: LAB 09:45
PROVIDERS: PCP Family Medicine; Visit Provider Urology
DX: R79.89 Other specified abnormal findings of blood chemistry (principal)
CPT/HCPCS: 84403; 85025

== ENCOUNTER → 2022-10-21 14:31 | Outpatient (BNVA) | payer MEDICARE, SELFPAY | PROVIDERS: PCP Family Medicine; Visit Provider Urology | DX: N20.1 Calculus of ureter (principal); R39.9 Unspecified symptoms and signs involving the genitourinary system; N52.9 Male erectile dysfunction, unspecified; R79.89 Other specified abnormal findings of blood chemistry; N20.9 Urinary calculus, unspecified; Z80.42 Family history of malignant neoplasm of prostate; Z85.828 Personal history of other malignant neoplasm of skin; Z72.0 Tobacco use; L21.8 Other seborrheic dermatitis; H01.134 Eczematous dermatitis of left upper eyelid; H01.131 Eczematous dermatitis of right upper eyelid; L57.0 Actinic keratosis; L91.8 Other hypertrophic disorders of the skin; D29.4 Benign neoplasm of scrotum; L81.4 Other melanin hyperpigmentation; L57.8 Other skin changes due to chronic exposure to nonionizing radiation; D18.01 Hemangioma of skin and subcutaneous tissue | CPT/HCPCS: 17000; 17003; 81003; 99213; 99214 ==

== ENCOUNTER → 2022-11-18 08:06 | Outpatient (BNVA) | payer MEDICARE, SELFPAY | PROVIDERS: PCP Family Medicine; Visit Provider Orthopaedic Surgery | DX: Z98.890 Other specified postprocedural states (principal) | CPT/HCPCS: 99024 ==

== ENCOUNTER → 2023-01-04 14:02 | Outpatient (BNVA) | payer MEDICARE, SELFPAY | PROVIDERS: PCP Family Medicine; Visit Provider Internal Medicine | DX: R25.2 Cramp and spasm (principal); M51.16 Intervertebral disc disorders with radiculopathy, lumbar region; M19.042 Primary osteoarthritis, left hand; M79.671 Pain in right foot | CPT/HCPCS: 36415; 73120; 73620; 80053; 82550; 82607; 84443; 85025; 85651; 86140; 86160; 86162; 86200; 86235; 86255; 86376; 86431; 86480; 86704; 86803; 87340; 99214 ==

== ENCOUNTER → 2023-01-24 09:39 | Outpatient (BNVA) | payer MEDICARE, SELFPAY | PROVIDERS: PCP Family Medicine; Visit Provider Internal Medicine | DX: R25.2 Cramp and spasm (principal); R74.8 Abnormal levels of other serum enzymes; E53.8 Deficiency of other specified B group vitamins; E11.9 Type 2 diabetes mellitus without complications | CPT/HCPCS: 36415; 80053; 82550; 83520; 84100; 84182; 85651; 86140; 86235; 99214 ==

== ENCOUNTER → 2023-02-24 11:38 | Outpatient (BNVA) | payer MEDICARE, SELFPAY | PROVIDERS: PCP Family Medicine; Visit Provider Internal Medicine | DX: R74.8 Abnormal levels of other serum enzymes (principal); R25.2 Cramp and spasm; E11.9 Type 2 diabetes mellitus without complications; E53.8 Deficiency of other specified B group vitamins | CPT/HCPCS: 36415; 82550; 84100; 85651; 99214 ==

== ENCOUNTER → 2023-03-14 09:57 | Outpatient (BNVA) | payer MEDICARE, SELFPAY | PROVIDERS: PCP Family Medicine; Referring Provider Internal Medicine; Visit Provider Surgery | DX: R74.8 Abnormal levels of other serum enzymes (principal) | CPT/HCPCS: 99204; 99214 ==

== ENCOUNTER 2023-04-04 20:00 | Outpatient (CLI) | payer MEDICARE, SELFPAY | END 2023-04-04 20:01 | disposition home or self-care (01) | LOC: SLEEP 04-05 05:30 | PROVIDERS: PCP Family Medicine; Visit Provider Specialist | DX: G47.33 Obstructive sleep apnea (adult) (pediatric) (principal) | CPT/HCPCS: 95811 ==

== ENCOUNTER 2023-04-13 06:28 | Day surgery (SDC) | payer MEDICARE, SELFPAY ==
--- NOTE | 2023-04-13 06:38 | W.PM.OPSFHP ---
Same Day Surgery H&P Indication for Procedure/HPI DATE OF PROCEDURE: April 13, 2023 CHIEF COMPLAINT/INDICATIONFOR SURGICAL PROCEDURE: muscular disorder workup PREOP DIAGNOSIS: polymiositis PLANNED PROCEDURE: Operation Date: 04/13/23 08:00 Proposed Procedures p muscle biopsy left deltoid R74.8(Left) - Sha Ellis MD Medications/Allergies* Home Medications Medication Instructions Recorded Confirmed Type levothyroxine 112 mcg capsule 112 mcg PO QAM 06/02/20 04/12/23 History lisinopril 10 mg tablet (Prinivil) 10 mg PO BEDTIME 06/02/20 04/12/23 History hydrochlorothiazide 25 mg tablet 25 mg PO QAM 06/05/20 04/12/23 History acetaminophen 650 mg 1,300 mg PO PRN PRN Pain 07/29/20 04/12/23 History tablet,extended release (Tylenol 8 Hour) testosterone cypionate 200 mg/mL 200 mg IM Q9D 07/29/20 04/12/23 History intramuscular oil gabapentin 300 mg capsule 1,200 mg PO BEDTIME 03/05/21 04/12/23 History metformin 750 mg tablet,extended 1,500 mg PO QAM 03/05/21 04/12/23 History release 24 hr vitamin B complex 1 tab PO DAILY PRN Outbreak 03/05/21 04/12/23 History insulin glargine 100 unit/mL (3 65 unit SUBCUT BID 03/04/22 04/12/23 History mL) subcutaneous pen (Lantus Solostar U-100 Insulin) cholecalciferol (vitamin D3) 10 10 mcg PO DAILY PRN Outbreak 06/01/22 04/12/23 History mcg (400 unit) capsule ammonium lactate 12 % topical cream 1 applic topical BID PRN Outbreak 08/23/22 04/12/23 History anastrozole 1 mg tablet 1 mg PO DAILY 08/23/22 04/12/23 History ketoconazole 2 % topical cream 1 applic topical BID PRN Outbreak 08/23/22 04/12/23 History metformin 500 mg tablet,extended 500 mg PO BEDTIME 08/23/22 04/12/23 History release 24 hr modafinil 200 mg tablet 200 mg PO DAILY 08/23/22 04/12/23 History wrfgsqyuflhr-imp-tgolv acid-vit 1 tab PO DAILY 08/23/22 04/12/23 History K-lycop 400 mcg-20 mcg-370 mcg tablet (Men's 50 Plus Daily Formula) mupirocin 2 % topical ointment 1 applic topical BID PRN Outbreak 08/23/22 04/12/23 History tramadol 50 mg tablet 50 mg PO Q6H PRN Pain 08/23/22 04/12/23 History rivaroxaban 10 mg tablet (Xarelto) 10 mg PO DAILY 10/21/22 04/12/23 History dapagliflozin propanediol 5 mg 5 mg PO DAILY 01/04/23 04/12/23 History tablet (Farxiga) cyclosporine 0.05 % eye drops in a 1 drp ophthalmic (eye) Q12H 04/12/23 04/12/23 History dropperette (Restasis) doxycycline hyclate 100 mg tablet 100 mg PO DAILY 04/12/23 04/12/23 History doxycycline hyclate 100 mg tablet 100 mg PO DAILY 04/12/23 04/12/23 History tadalafil 20 mg tablet (Cialis) 20 mg PO DAILY PRN sexual activity 04/12/23 04/12/23 History Allergies/Adverse Reactions Allergy/AdvReac Type Severity Reaction Status Date / Time trimethoprim [From Bactrim] Allergy Rash Verified 04/12/23 15:58 oats AdvReac Severe severe Verified 04/12/23 15:58 diarhea sulfamethoxazole AdvReac Rash Verified 04/12/23 15:58 [From Bactrim] Pertinent History/Comorbid Conditions* Medical History (Updated 01/24/23 @ 09:59 by Nelson Mendez MD) High serum creatine kinase (CK) Low vitamin B12 level Lower urinary tract symptoms (LUTS) Family history of prostate cancer Erectile dysfunction Urolithiasis Hx of back injury Personal history of kidney stones Palpitations DVT (deep venous thrombosis) Family history of Alzheimer's disease Has been on Aricept for a long time related to this and some concerning symptoms years ago Hyperlipidemia Chronic anticoagulation Eliquis Viral illness Multiple complaints Essential hypertension Low testosterone in male COPD (chronic obstructive pulmonary disease) History of thromboembolism History of DVT and PE in the past, on chronic Eliquis Hypothyroidism Type 2 diabetes mellitus Colon polyps Diverticulosis Surgical History (Updated 09/02/22 @ 10:55 by Rudy Gamez PA-C) Hx of vasectomy Hx of shoulder surgery Hx of wisdom tooth extraction Hx of oral surgery History of eye surgery H/O transurethral resection of prostate Family History (Updated 03/04/22 @ 13:57 by Leia Saleem LPN) Father, AT AGE 89 Diabetes Father CHF (congestive heart failure) Father Dementia Mother Social History Smoking and tobacco/nicotine status: former use of tobacco/nicotine Alcohol intake: current Alcohol intake frequency: few times a week Substance/Drug Use: never Household members: spouse Marital status: Current occupational status: employed Pertinent Exam Findings alert, oriented x 3, clear to auscultation bilaterally and operative site marked Recommendations Surgery/Procedure today Coding Level of Care Code Acute Code for Chg Fwd
[2023-04-13 06:39] VITALS: BP 146/72; PULSE 69; RESP 18; TEMP 36.2; O2SAT 99
[2023-04-13] MEDS: sodium chloride 0.9% 1,000 ML 30 ML IV (06:43)
[2023-04-13 07:07] LABS: Glucose Point of Care 179 mg/dL (70-110)
[2023-04-13 07:08] VITALS: BMI 35.2
--- NOTE | 2023-04-13 07:25 | ANES.PREANE2 ---
Pre-Anesthetic Assessment Height/Weight: Height 1.78 m Weight 111.13 kg Temp Pulse Resp BP Pulse Ox O2 Del Method 97.2 F L 69 18 146/72 99 Room Air 04/13/23 06:39 04/13/23 06:39 04/13/23 06:39 04/13/23 06:39 04/13/23 06:39 04/13/23 07:06 Preop Diagnosis: polymiositis Operation Date: 04/13/23 08:00 Proposed Procedures p left thigh muscle biopsy(Left) - Sha Ellis MD Familial anesthetic complications: None Was Beta Araceli taken within 24 hours: N/A Was Clonidine taken within 24 hours: N/A Last intake: Intake Last Liquid Date 04/12/23 Last Liquid Time 19:30 Last Solid Date 04/12/23 Last Solid Time 19:30 Social Tobacco and No alcohol Exam alert, oriented x 3, clear to auscultation bilaterally and regular rate & rhythm Airway Mallampati: Class IV Dentition: full Pulmonary Chronic Obstructive Pulmonary Disease and Sleep Apnea (brought cpap with him) CV/HEM Hypertension Hx unprovoked DVT w/ PE (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 - holding for procedure) Mod MVR Metabolic Diabetes Mellitus, Hyperlipidemia, Morbid Obesity and Thyroid Disease Musc/skel increased CK w/ polymyositis Anesthetic Plan ASA status: 3 Anesthesia: Choice Risk of > 500 ml blood loss (7ml/kg in children): No Medications/Allergies Home Medications Medication Instructions Recorded Confirmed Last Taken Type levothyroxine 112 mcg capsule 112 mcg PO QAM 06/02/20 04/12/23 04/13/23 01:30 History lisinopril 10 mg tablet (Prinivil) 10 mg PO BEDTIME 06/02/20 04/12/23 04/12/23 History hydrochlorothiazide 25 mg tablet 25 mg PO QAM 06/05/20 04/12/23 04/12/23 History acetaminophen 650 mg 1,300 mg PO PRN PRN Pain 07/29/20 04/12/23 04/10/23 History tablet,extended release (Tylenol 8 Hour) testosterone cypionate 200 mg/mL 200 mg IM Q9D 07/29/20 04/12/23 04/03/23 History intramuscular oil gabapentin 300 mg capsule 1,200 mg PO BEDTIME 03/05/21 04/12/23 04/12/23 History metformin 750 mg tablet,extended 1,500 mg PO QAM 03/05/21 04/12/23 04/12/23 History release 24 hr vitamin B complex 1 tab PO DAILY PRN Outbreak 03/05/21 04/12/23 04/10/23 History insulin glargine 100 unit/mL (3 65 unit SUBCUT BID 03/04/22 04/12/23 04/11/23 History mL) subcutaneous pen (Lantus Solostar U-100 Insulin) cholecalciferol (vitamin D3) 10 10 mcg PO DAILY PRN Outbreak 06/01/22 04/12/23 04/12/23 History mcg (400 unit) capsule ammonium lactate 12 % topical cream 1 applic topical BID PRN Outbreak 08/23/22 04/13/23 Unknown History anastrozole 1 mg tablet 1 mg PO DAILY 08/23/22 04/12/23 04/12/23 History ketoconazole 2 % topical cream 1 applic topical BID PRN Outbreak 08/23/22 04/12/23 04/11/23 History metformin 500 mg tablet,extended 500 mg PO BEDTIME 08/23/22 04/12/23 04/11/23 History release 24 hr modafinil 200 mg tablet 200 mg PO DAILY 08/23/22 04/12/23 04/12/23 History kmoutgptnnxw-usf-umdwg acid-vit 1 tab PO DAILY 08/23/22 04/12/23 04/12/23 History K-lycop 400 mcg-20 mcg-370 mcg tablet (Men's 50 Plus Daily Formula) mupirocin 2 % topical ointment 1 applic topical BID PRN Outbreak 08/23/22 04/12/23 04/10/23 History tramadol 50 mg tablet 50 mg PO Q6H PRN Pain 08/23/22 04/13/23 07/23/22 History cyclobenzaprine 10 mg tablet 10 mg PO TID PRN muscle spasm #60 09/02/22 04/12/23 04/12/23 Rx tabs rivaroxaban 10 mg tablet (Xarelto) 10 mg PO DAILY 10/21/22 04/12/23 04/10/23 History tamsulosin 0.4 mg capsule 0.4 mg PO BID #60 caps 10/21/22 04/12/23 04/12/23 Rx dapagliflozin propanediol 5 mg 5 mg PO DAILY 01/04/23 04/12/23 04/12/23 History tablet (Farxiga) cyclosporine 0.05 % eye drops in a 1 drp ophthalmic (eye) Q12H 04/12/23 04/12/23 04/12/23 History dropperette (Restasis) doxycycline hyclate 100 mg tablet 100 mg PO DAILY 04/12/23 04/12/23 04/12/23 History tadalafil 20 mg tablet (Cialis) 20 mg PO DAILY PRN sexual activity 04/12/23 04/12/23 04/11/23 History ezetimibe 10 mg tablet 10 mg PO DAILY 04/13/23 04/13/23 04/12/23 History memantine ER 14 mg-donepezil 10 mg 14 cap PO DAILY 04/13/23 04/13/23 04/12/23 History capsule sprinkle,ext.release 24 hr (Namzaric) Allergies Allergy/AdvReac Type Severity Reaction Status Date / Time trimethoprim [From Bactrim] Allergy Rash Verified 04/13/23 06:45 oats AdvReac Severe severe Verified 04/13/23 06:45 diarhea sulfamethoxazole AdvReac Rash Verified 04/13/23 06:45 [From Bactrim] Current Medications Generic Name Dose Route Start Last Admin Trade Name Freq PRN Reason Stop Dose Admin Sodium Chloride 1,000 mls @ 30 mls/hr 04/13/23 06:30 04/13/23 06:43 Sodium Chloride 0.9% IV 04/14/23 06:29 30 mls/hr .Q24H SABAS Administration PFSH Anesthesia Medical History Chronic anticoagulation Eliquis Colon polyps COPD (chronic obstructive pulmonary disease) Diverticulosis DVT (deep venous thrombosis) Erectile dysfunction Essential hypertension Family history of Alzheimer's disease Has been on Aricept for a long time related to this and some concerning symptoms years ago Family history of prostate cancer High serum creatine kinase (CK) History of thromboembolism History of DVT and PE in the past, on chronic Eliquis Hx of back injury Hyperlipidemia Hypothyroidism Low testosterone in male Low vitamin B12 level Lower urinary tract symptoms (LUTS) Multiple complaints Palpitations Personal history of kidney stones Type 2 diabetes mellitus Urolithiasis Viral illness Surgical History H/O transurethral resection of prostate History of eye surgery Hx of oral surgery Hx of shoulder surgery Hx of vasectomy Hx of wisdom tooth extraction Family History Mother Dementia Father , AT AGE 89 CHF (congestive heart failure) Diabetes Social History Smoking and tobacco/nicotine status: former use of tobacco/nicotine Alcohol intake: current Alcohol intake frequency: few times a week Substance/Drug Use: never Household members: spouse Marital status: Current occupational status: employed Data Anesthesia Cardiac Studies: Echocardiogram Ultrasound 07/30/20
[2023-04-13] MEDS: ceFAZolin 2,000 MG in sodium chloride 0.9% (plus) 50 ML 100 MG IV (07:58)
[2023-04-13] MEDS: BUPivacaine 0.5% INJ 10 mL INJECTION (08:33)
[2023-04-13] MEDS: lidocaine-epi 2% 20 mL INJ INJECTION (08:33)
[2023-04-13 08:48] VITALS: BP 138/69; PULSE 78; RESP 16; TEMP 36.1; O2SAT 96
--- NOTE | 2023-04-13 08:55 | P.OP_ITS ---
Operative Report Date of procedure: April 13, 2023 Pre-op diagnosis: Chronic muscle spasms Post-op diagnosis: Same Procedure done: Muscle biopsy from the left vastus lateralis Specimens removed/disposition: Left vastus lateralis muscle fragment -to pathology Surgeon: Sha Ellis MD Transcript Evaluator: MIRELLA OR Staff Estimated blood loss: 5cc Complications: None Findings: normal muscular anatomy Brief History: This is a 73-year-old male who has history of chronic muscular spans being worked up by rheumatology, in addition his CK is elevated with no current cause, I have been asked to do a muscle biopsy for workup. After discussing all the risk and benefits as documented in my preop note we decided to proceed with muscle biopsy. Procedure: Patient was placed in the supine position. The left lower extremity was prepped and draped in the usual sterile fashion. Timeout was conducted. Local anesthesia was administered and the area overlying the vastus lateralis about 5 cm above the knee a 4 cm incision was made in a longitudinal direction, the incision was deepened to the level of the fascia using electrocautery. The fascia overlying the left vastus lateralis muscle was then sharply opened with Metzenbaum scissors the muscle was elevated with an Allis clamp and tied proximal and distal with #3-0 Vicryl sutures leaving a 2 cm piece of muscle between the ties. I then circumferentially dissected the muscle using a hemostat and proceeded to transect the muscle sharply with a 15 blade. The specimen was passed to the scrub table and placed in a saline soaked Telfa to be sent to pathology. I then obtain hemostasis with electrocautery. The fascia was closed with #2-0 Vicryl, hemostasis was verified and the wound was closed in layers using #3-0 Vicryl for the subcutaneous tissue and #4 Monocryl for the skin. Dermabond was applied. The wound was then wrapped with a compressive bandage to prevent hematoma formation. At the end of the procedure all counts were correct. The patient tolerated well the procedure and was transferred to the PACU in stable condition.
[2023-04-13 08:57] VITALS: BP 136/67; PULSE 85; RESP 16; O2SAT 97
[2023-04-13 09:01] VITALS: BP 118/67; PULSE 76; RESP 16; TEMP 36.6; O2SAT 97
[2023-04-13 09:16] VITALS: BP 135/69; PULSE 73; RESP 16; O2SAT 98
--- NOTE | 2023-04-13 14:11 | ANE.PACU2 ---
Inpatient post-anesthesia follow up: Airway intact: Yes Vital signs: Temperature 98 F Pulse Rate 73 Respiratory Rate 16 Blood Pressure 135/69 Pulse Oximetry 98 Oxygen Delivery Me thod Room Air Oxygen Flow Rate Fraction of Inspir ed Oxygen Hydration adequate: Yes Nausea and vomiting: No Pain level: 1 Mental status: Baseline
== END 2023-04-13 10:05 | disposition home or self-care (01) ==
PROVIDERS: PCP Family Medicine; Visit Provider Surgery
PROC: (CPT 20205; principal; 2023-04-13 08:00)
DX: M62.838 Other muscle spasm (principal); J44.9 Chronic obstructive pulmonary disease, unspecified; G47.30 Sleep apnea, unspecified; I10 Essential (primary) hypertension; Z86.718 Personal history of other venous thrombosis and embolism; Z79.01 Long term (current) use of anticoagulants; E11.9 Type 2 diabetes mellitus without complications; E78.5 Hyperlipidemia, unspecified; E66.01 Morbid (severe) obesity due to excess calories; Z68.35 Body mass index [BMI] 35.0-35.9, adult; Z79.84 Long term (current) use of oral hypoglycemic drugs; Z79.4 Long term (current) use of insulin
CPT/HCPCS: 20205; 36416; 82962; 88305; 88312; 88331; 88374; J0690; J2250; J2371; J2704; J3490; J7030

== ENCOUNTER → 2023-04-14 08:06 | Outpatient (BNVA) | payer MEDICARE, SELFPAY | PROVIDERS: PCP Family Medicine; Visit Provider Psychiatry & Neurology Neurology | DX: G93.0 Cerebral cysts (principal); R47.89 Other speech disturbances; Z87.891 Personal history of nicotine dependence | CPT/HCPCS: 99203 ==

== ENCOUNTER → 2023-04-26 07:58 | Outpatient (BNVA) | payer MEDICARE, SELFPAY | PROVIDERS: PCP Family Medicine; Visit Provider Surgery | DX: Z09 Encounter for follow-up examination after completed treatment for conditions other than malignant neoplasm (principal) | CPT/HCPCS: 17000; 99024; 99214 ==

== ENCOUNTER 2023-04-27 06:47 | Outpatient (CLI) | payer MEDICARE, SELFPAY ==
--- NOTE | 2023-04-27 07:00 | USCV_ITS ---
Amanda Bill Age: 73 Gender: M : 1950 Exam Date: 04/27/2023 06:54 Ordering Phys: Mario Abarca MD Technologist: Florence Corona [place] [facility] [place]: HISTORY OF SMALL TIAS Risk Factors: Unknown Previous Vascular Surgery: NONE Right Brachial BP: / Left Brachial BP: / Right Left Velocity (cm/s) Spectral Plaque Velocity (cm/s) Spectral Plaque Syst/Diast Broadening Syst/Diast Broadening 108.90/31.50 Prox CCA 134.90/ 25.10 87.10/ 24.10 Mid CCA 101.90/ 18.80 63.30/ 17.90 Distal CCA 71.10 / 22.10 75.90/ 23.10 Prox ICA 105.70/ 26.90 Hetro 76.90/ 28.80 Mid ICA 92.30 / 26.00 91.30/ 29.80 Distal ICA 78.00 / 20.30 126.00 ECA 124.90 1.05 ICA/CCA 1.04 Antegrade Vertebral Antegrade 39.50/ 9.20 cm/s 33.90/ 5.10 cm/s Tri Subclavian Tri 53.30 69.70 CONCLUSIONS Right ICA stenosis <50%. Moderate atheromatous plaque right carotid bulb/ICA. Left ICA stenosis <50%. Moderate atheromatous plaque left carotid bulb/ICA. Intimal thickening in the common carotid arteries and internal carotid arteries bilaterally. Normal antegrade Doppler flow noted in the right vertebral artery. Normal antegrade Doppler flow noted in the left vertebral artery. Micha Muñoz MD (Electronically Signed) Final Date: 27 April 2023 11:44 S
== END 2023-04-27 06:48 | disposition home or self-care (01) ==
LOC: RAD 06:47
PROVIDERS: PCP Family Medicine; Visit Provider Psychiatry & Neurology Neurology
DX: Z86.73 Personal history of transient ischemic attack (TIA), and cerebral infarction without residual deficits (principal); I65.23 Occlusion and stenosis of bilateral carotid arteries
CPT/HCPCS: 93880

== ENCOUNTER → 2023-05-31 11:16 | Outpatient (BNVA) | payer MEDICARE, SELFPAY | PROVIDERS: PCP Family Medicine; Visit Provider Internal Medicine | DX: M60.9 Myositis, unspecified (principal); M51.16 Intervertebral disc disorders with radiculopathy, lumbar region; R74.8 Abnormal levels of other serum enzymes; R25.2 Cramp and spasm; E11.9 Type 2 diabetes mellitus without complications; E53.8 Deficiency of other specified B group vitamins | CPT/HCPCS: 36415; 82550; 84100; 84182; 86140; 86235; 99214 ==

== ENCOUNTER → 2023-06-13 15:22 | Outpatient (BNVA) | payer MEDICARE, SELFPAY | PROVIDERS: PCP Family Medicine; Visit Provider Psychiatry & Neurology Neurology | DX: G93.0 Cerebral cysts (principal); R47.89 Other speech disturbances; G45.9 Transient cerebral ischemic attack, unspecified | CPT/HCPCS: 99212 ==

== ENCOUNTER 2023-06-23 14:18 | Outpatient (CLI) | payer MEDICARE, SELFPAY ==
--- NOTE | 2023-06-23 14:45 | MR_ITS ---
WS: [id number] MRI BRAIN WITH AND WITHOUT CONTRAST HISTORY: G93.0 - Cerebral cysts COMPARISON: 11/19/2021 and 08/31/2021 TECHNIQUE: Multiplanar imaging performed through the brain with MultiHance 20 ml's IV. No acute infarcts are seen. Gill-white matter differentiation is well preserved. Moderate volume loss and atrophy. Several small T2 and FLAIR signal hyperintensities are noted in the periventricular whi te matter from small vessel ischemic disease. No hemorrhage. No susceptibility artifacts or prior lacunar infarcts. Very mildly prominent ventricles and extra-axial spaces on the basis of atrophy. Clivus and pituitary gland are normal. Reidentified is a cystic mass in the LEFT middle cranial fossa measuring 5.1 x 5.0 cm and extending o jenifer a length of 5.7 cm. There is slight mass effect upon the LEFT middle cranial fossa and temporal l obe. Very similar in appearance to the prior examinations. On the postcontrast imaging there is no no dularity or peripheral enhancement. Postcontrast images are negative for masses or vascular malformations. Dural venous sinuses are normal. Paranasal sinuses: Well aerated with no significant disease. Mastoid air cells: Normal. Calvarium and scalp: Normal. IMPRESSION: 1. No acute intracranial hemorrhage or infarct. 2. Stable large LEFT middle cranial fossa arachnoid cyst. There is slight mass effect upon the adjac ent brain. No enhancement. 3. Moderate volume loss and atrophy and mild small vessel ischemic changes are stable.
[2023-06-23] MEDS: gadobenate dimeglumine 20 mL vial IV (15:39)
== END 2023-06-23 14:19 | disposition home or self-care (01) ==
LOC: RAD 14:18
PROVIDERS: PCP Family Medicine; Visit Provider Psychiatry & Neurology Neurology
DX: G93.0 Cerebral cysts (principal); I67.89 Other cerebrovascular disease
CPT/HCPCS: 70553; A9577

== ENCOUNTER → 2023-07-05 07:56 | Outpatient (BNVA) | payer MEDICARE, SELFPAY | PROVIDERS: PCP Family Medicine; Visit Provider Podiatrist Foot & Ankle Surgery | DX: E11.42 Type 2 diabetes mellitus with diabetic polyneuropathy; L60.3 Nail dystrophy; M20.21 Hallux rigidus, right foot; M20.22 Hallux rigidus, left foot; Z79.84 Long term (current) use of oral hypoglycemic drugs; Z79.4 Long term (current) use of insulin | CPT/HCPCS: 11721; 73630; 99213 ==

== ENCOUNTER → 2023-09-29 08:59 | Outpatient (BNVA) | payer MEDICARE, SELFPAY | PROVIDERS: PCP Family Medicine; Visit Provider Podiatrist Foot & Ankle Surgery | DX: L97.512 Non-pressure chronic ulcer of other part of right foot with fat layer exposed (principal); E11.42 Type 2 diabetes mellitus with diabetic polyneuropathy; E11.621 Type 2 diabetes mellitus with foot ulcer; Z79.84 Long term (current) use of oral hypoglycemic drugs; Z79.4 Long term (current) use of insulin | CPT/HCPCS: 11042 ==

== ENCOUNTER 2023-10-08 18:16 | Emergency (ER) | payer MEDICARE, SELFPAY ==
[2023-10-08 18:22] VITALS: BP 183/82; PULSE 79; RESP 16; TEMP 36.6; O2SAT 96; BMI 35.7
--- NOTE | 2023-10-08 18:30 | USR_ITS ---
PROCEDURE INFORMATION: Exam: US Scrotum Exam date and time: 10/08/2023 7:05 PM Age: 73 years old Clinical indication: Edema; Prior surgery; Surgery date: 6+ months; Surgery type: Vasectomy; Additional info: Scrotal swelling TECHNIQUE: Imaging protocol: Real-time ultrasound of the scrotum and contents with color Doppler and image documentation. COMPARISON: US renal BI* [id number] 07/28/2020 7:18 AM FINDINGS: Right testicle: Right testicle measures 4.2 x 2.2 x 3.1 cm. (volume 15 cc) There is normal uniform echogenicity. No focal testicular mass is identified. There is normal Doppler flow. Left testicle: Left testicle measures 4.1 x 2.3 x 3.2 cm (volume 16 cc) There is normal uniform echogenicity. No focal testicular mass is identified. There is normal Doppler flow. Epididymides: Normal. Scrotum/soft tissues: There is a small hydrocele on the right and a moderate-sized hydrocele on the left. US/US scrotum [id number] IMPRESSION: Small right and moderate left hydrocele.
[2023-10-08 18:57] VITALS: BP 175/89
[2023-10-08 18:58] LABS: Basophils # 0.1 10^3/uL (0.0-0.1); Basophils % 0.4 %; Eosinophils # 0.3 10^3/uL (0.0-0.8); Eosinophils % 2.5 %; Hematocrit 45.8 % (37-53); Lymphocytes # 1.4 10^3/uL (0.8-4.8); Lymphocytes % 12.6 %; Mean Corpuscular Hemoglobin 28.5 pg (27-33); Mean Corpuscular Volume 86.4 fl (82-101); Mean Platelet Volume 9.8 fL (7.4-10.4); Monocytes # 0.9 10^3/uL (0.2-0.9); Monocytes % 7.6 %; Neutrophils # 8.49 10^3/uL (1.8-7.7); Neutrophils % 76.5 %; Nucleated Red Blood Cells % 0 %; Platelet Count 231 10^3/cmm (157-399); Red Cell Distribution Width 15.4 % (12.1-15.1); White Blood Count 11.12 10^3/uL (3.29-11.43)
[2023-10-08 19:00] VITALS: RESP 16; O2SAT 99
--- NOTE | 2023-10-08 19:03 | ED_ITS ---
HPI - Male Genitourinary 2 General: Chief complaint: Urogenital-Male Stated complaint: Dr Galdamez told him to come Here\Hemotoma Time Seen by Provider: 10/08/23 18:30 Source: patient Mode of arrival: ambulatory Limitations: no limitations History of Present Illness: Patient sent over from walk-in clinic. Dr. Willis called and discussed him with me. Patient's been on Coumadin for the past few weeks as his Xarelto got too expensive. Has some swelling in the left scrotum as well as at the base of the penis as well as a feeling of the viscosity or hematoma at the base of the penis. Patient reports to me that he has not had his INR checked during the entire 3 weeks on his Coumadin. On review of systems patient did complain of left ear pain for 3 days. Review of Systems 2 General: Reports: 10 or more systems reviewed and unremarkable except in HPI and below PFSH ED 2 PFSH: Medical History High serum creatine kinase (CK) Low vitamin B12 level Lower urinary tract symptoms (LUTS) Family history of prostate cancer Erectile dysfunction Urolithiasis Hx of back injury Personal history of kidney stones Palpitations DVT (deep venous thrombosis) Family history of Alzheimer's disease Has been on Aricept for a long time related to this and some concerning symptoms years ago Hyperlipidemia Chronic anticoagulation Eliquis Viral illness Multiple complaints Essential hypertension Low testosterone in male COPD (chronic obstructive pulmonary disease) History of thromboembolism History of DVT and PE in the past, on chronic Eliquis Hypothyroidism Type 2 diabetes mellitus Colon polyps Diverticulosis Surgical History Hx of vasectomy Hx of shoulder surgery Hx of wisdom tooth extraction Hx of oral surgery History of eye surgery H/O transurethral resection of prostate Family History Mother Dementia Father , AT AGE 89 Congestive heart failure (CHF) Diabetes Social History Smoking and tobacco/nicotine status: former use of tobacco/nicotine Alcohol intake: current Alcohol intake frequency: few times a week Substance/Drug Use: never Household members: spouse Marital status: Current occupational status: employed Physical Exam 2 Const: COMMON NORMALS: no acute distress, average body habitus, patient oriented x3, healthy appearing, alert and well nourished GENERAL APPEARANCE: well kempt and well developed HENMT: COMMON NORMALS: normocephalic, atraumatic, external ears normal and moist oral mucous membranes HEAD & SCALP: normocephalic and atraumatic E XTERNAL EAR: Yes external ears normal TYMPANIC MEMBRANE: TM normal on the right and TM abnormal (Erythematous and dull) TM laterality: left Eye: COMMON NORMALS: Equal, round and reactive pupils present, EOMs intact bilaterally and conjunctivae normal CONJUNCTIVA: Yes conjunctivae normal P UPIL: Yes Equal, round and reactive pupils present Neck/C-Spine: COMMON NORMALS: full ROM, no lymphadenopathy and supple Chest: CHEST: Yes Symmetrical chest wall rise and No Surgical scars present (Chest) Resp: COMMON NORMALS: normal respiratory effort, No retractions, No use of accessory muscles and clear to auscultation bilaterally AUSCULTATION: clear to auscultation bilaterally Cardio: COMMON NORMALS: regular rate, regular rhythm, S1 normal heart sound present, S2 normal heart sound present, No gallops present (Cardio), No clicks present (Cardio), No murmurs present (Cardio) and No rub (Cardio) RATE: r egular rate RHYTHM: regular rhythm HEART SOUNDS: S1 normal heart sound present, S2 normal heart sound present and no murmurs PERIPHERAL PULSES: o ther (Radial pulses 2+ and symmetric) GI: COMMON NORMALS: Soft to palpation, non-tender and no masses INSPECTION: No abdominal distension PALPATION: Yes Soft to palpation, No Guarding due to palpation present (GI) and No Rebound tenderness present : COMMON NORMALS: Yes no CVA tenderness BLADDER/KIDNEY EXAM: Yes no CVA tenderness Back/Pelvis: COMMON NORMALS: no CVA tenderness Extremity: COMMON NORMALS: normal to inspection, full ROM, capillary refill normal and no clubbing, cyanosis or edema Neuro: COMMON NORMALS: patient oriented x3 SENSORIUM/ORIENTATION: Yes alert Psych: APPEARANCE: Yes well kempt Skin: COMMON NORMALS: no rashes or lesions noted, no wounds, turgor normal and no jaundice GENERAL SKIN EXAM: no rashes or lesions noted and turgor normal Course 2 Reevaluation(s): Reevaluation #1: Patient checked on. Tolerated the IV vitamin K. No p.o. vitamin K available to give the patient. Time: 20:55 Vital Signs: Vital signs: Vital Signs Temperature 98 F 10/08/23 18:22 Pulse Rate 79 10/08/23 18:22 Respiratory Rate 16 10/08/23 19:00 Blood Pressure 175/89 10/08/23 18:57 Pulse Oximetry 99 10/08/23 19:00 Oxygen Delivery Me thod Room Air 10/08/23 19:00 MDM - Male Medical Decision Making Patient given IV vitamin K as there is no p.o. vitamin K to give patient. Low- dose patient tolerated well without any side effects. Patient will be prescribed vitamin K and complete tomorrow for INR recheck. Patient is aware to hold taking his Coumadin until he hears from us. Ultrasound images personally reviewed and he has a small hydrocele on the right and a left hydrocele with some debris is about moderate on left. Lab Data I reviewed the patient's lab results. 10/08/23 18:50 10/08/23 18:50 Laboratory Results WBC 11.12 10^3/uL (3.29-11.43) 10/08/23 18:50 RBC 5.30 10^6/uL (3.85-5.65) 10/08/23 18:50 Hgb 15.10 g/dL (11.27-16.99) 10/08/23 18:50 Hct 45.8 % (37-53) 10/08/23 18:50 MCV 86.4 fl (82-101) 10/08/23 18:50 MCH 28.5 pg (27-33) 10/08/23 18:50 MCHC 33.0 g/dL (30-55) 10/08/23 18:50 RDW 15.4 % (12.1-15.1) H 10/08/23 18:50 Plt Count 231 10^3/cmm (157-399) 10/08/23 18:50 MPV 9.8 fL (7.4-10.4) 10/08/23 18:50 Neut % (Auto) 76.5 % 10/08/23 18:50 Lymph % (Auto) 12.6 % 10/08/23 18:50 [place] % (Auto) 7.6 % 10/08/23 18:50 Eos % (Auto) 2.5 % 10/08/23 18:50 Baso % (Auto) 0.4 % 10/08/23 18:50 Neut # (Auto) 8.49 10^3/uL (1.8-7.7) H 10/08/23 18:50 Lymph # (Auto) 1.4 10^3/uL (0.8-4.8) 10/08/23 18:50 [place] # (Auto) 0.9 10^3/uL (0.2-0.9) 10/08/23 18:50 Eos # (Auto) 0.3 10^3/uL (0.0-0.8) 10/08/23 18:50 Baso # (Auto) 0.1 10^3/uL (0.0-0.1) 10/08/23 18:50 Nucleated RBC % (auto) 0 % 10/08/23 18:50 Nucleated RBCs # 0.0 /100WBC 10/08/23 18:50 All radiology interpretation(s) finalized by discharge Discharge Plan Discharge Patient Disposition: Home Clinical Impression: Nontraumatic hematoma of penis, Elevated international normalized ratio (INR) due to prior anticoagulant medication ingestion, Acute left otitis media Condition: Stable Prescriptions: New phytonadione (vitamin K1) 5 mg tablet 5 mg PO DAILY 2 Days Qty: 2 0RF Rx Instructions: Take 1st vitamin k tablet as soon as received. Don't take second unless instructed by amoxicillin 500 mg capsule 500 mg PO BID 7 Days Qty: 14 0RF No Action metformin 750 mg tablet extended release 24 hr 1,500 mg PO QAM lisinopril [Prinivil] 10 mg tablet 10 mg PO BEDTIME levothyroxine 112 mcg capsule 112 mcg PO QAM Lantus Solostar U-100 Insulin 100 unit/mL (3 mL) insulin pen 65 unit SUBCUT BID Rx Instructions: 70 UNITS AT NIGHT tamsulosin 0.4 mg capsule 0.4 mg PO BID Qty: 60 12RF Xarelto 10 mg tablet 20 mg PO DAILY Farxiga 5 mg tablet 10 mg PO DAILY (DME) Sole supports See Rx Instructions .Route .MEDSUPPLY Qty: 1 0RF Rx Instructions: As directed cyclobenzaprine 10 mg tablet 10 mg PO TID PRN (Reason: muscle spasm) Qty: 60 0RF vitamin [id number] B1 100-1 mg/mL solution IM hydrochlorothiazide 25 mg Tablet 25 mg PO QAM acetaminophen [Tylenol 8 Hour] 650 mg Tablet Extended Release 1,300 mg PO PRN PRN (Reason: Pain) testosterone cypionate 200 mg/mL oil 200 mg IM Q9D vitamin B complex Tablet 1 tab PO DAILY PRN (Reason: Outbreak) gabapentin 300 mg capsule 600 mg PO BEDTIME anastrozole 1 mg tablet 1 mg PO DAILY tramadol 50 mg tablet 50 mg PO Q6H PRN (Reason: Pain) modafinil 200 mg tablet 200 mg PO DAILY metformin 500 mg tablet extended release 24 hr 500 mg PO BEDTIME ammonium lactate 12 % cream 1 applic topical BID PRN (Reason: Outbreak) Rx Instructions: Apply to rough scaled areas. ketoconazole 2 % cream 1 applic topical BID PRN (Reason: Outbreak) Rx Instructions: Apply twice daily red scaled areas for 4 weeks and as needed for flares tadalafil [Cialis] 20 mg tablet 20 mg PO DAILY PRN (Reason: sexual activity) Rx Instructions: administer approximately 30min before sexual activity; NO NITROGLYCERIN! cyclosporine [Restasis] 0.05 % Dropperette 1 drp OPHTHALMIC (EYE) Q12H Discharge Orders: Discharge ED (Routine); Ordered 10/08/23 Ordered By: Tom Green Other Ambulatory Orders: Prothrombin Time INR (Routine) Timeframe: 1 Day Facility: [facility] - Location: Lab - Main Lab Ordered By: Tom Green Referrals: Freya Maguire DO [Primary Care Provider] - Discharge Diet: Usual diet Discharge Activity: Resume usual activity Patient Instructions: Elevated INR (ED) Activity Restrictions/Additional Instructions: Hold from taking any further Coumadin doses until you hear from myself or your primary physician. 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 Return here approximately 5 to 6 hours after that for INR check. When she get your blood drawn you may go home. You do need to make sure that registration has a good phone number for you. Coding Level of Care Code ED Income Tax Preparer for Laila Garibay
[2023-10-08 19:16] LABS: Anion Gap 13.8 (5-19); Blood Urea Nitrogen 13 mg/dL (8-23); Carbon Dioxide 28 mmol/L (22-29); Chloride 97 mmol/L (98-107); Creatinine Clr Calc Pharmacy 64.6421; Glucose 153 mg/dL (65-115); Osmolality Calculated 283 mOsm/kg (285-295); Potassium 3.8 mmol/L (3.5-5.1); Sodium 135 mmol/L (136-145)
[2023-10-08 19:19] LABS: Partial Thromboplastin Time 114.2 SECONDS (23.9-36.7)
[2023-10-08 19:20] LABS: INR 11.82 (0.8-1.2)
[2023-10-08] MEDS: phytonadione (ADULT) 2.5 MG in sodium chloride 0.9% 50 ML 153 MG IV (19:54)
[2023-10-08 20:00] VITALS: BP 166/100; PULSE 78; RESP 18; O2SAT 98
[2023-10-08] MEDS: cefTRIAXone 1,000 MG in sodium chloride 0.9% (plus) 50 ML 100 MG IV (20:35)
--- NOTE | 2023-10-08 20:39 | PC.NURSE ---
we did not have vit k in pill form, physician sent script for med home with pt.
[2023-10-08 21:16] VITALS: BP 163/97; PULSE 77; RESP 18; O2SAT 97
== END 2023-10-08 21:18 | disposition home or self-care (01) ==
PROVIDERS: Emergency Provider Emergency Medicine; PCP Family Medicine
DX: N48.89 Other specified disorders of penis (principal); H66.92 Otitis media, unspecified, left ear; R79.89 Other specified abnormal findings of blood chemistry; Z79.84 Long term (current) use of oral hypoglycemic drugs; Z79.4 Long term (current) use of insulin; Z87.891 Personal history of nicotine dependence; E78.5 Hyperlipidemia, unspecified; I10 Essential (primary) hypertension; J44.9 Chronic obstructive pulmonary disease, unspecified; E11.9 Type 2 diabetes mellitus without complications; Z79.01 Long term (current) use of anticoagulants
CPT/HCPCS: 36415; 76870; 80048; 85025; 85610; 85730; 96365; 96367; 99285; J0696; J3430

== ENCOUNTER 2023-10-09 18:27 | Outpatient (CLI) | payer MEDICARE, SELFPAY ==
[2023-10-09 19:32] LABS: INR 2.87 (0.8-1.2)
== END 2023-10-09 18:28 | disposition home or self-care (01) ==
PROVIDERS: PCP Emergency Medicine; Visit Provider Emergency Medicine
DX: R79.1 Abnormal coagulation profile (principal)
CPT/HCPCS: 85610

== ENCOUNTER → 2023-10-13 10:32 | Outpatient (BNVA) | payer MEDICARE, SELFPAY | PROVIDERS: PCP Family Medicine Adult Medicine; Visit Provider Podiatrist Foot & Ankle Surgery | DX: L03.031 Cellulitis of right toe | CPT/HCPCS: 99213 ==

== ENCOUNTER → 2023-11-03 08:45 | Outpatient (BNVA) | payer MEDICARE, SELFPAY | PROVIDERS: PCP Family Medicine Adult Medicine; Visit Provider Student in an Organized Health Care Education/Training Program | DX: G56.03 Carpal tunnel syndrome, bilateral upper limbs | CPT/HCPCS: 99214 ==

== ENCOUNTER 2023-11-11 10:54 | Outpatient (CLI) | payer MEDICARE, SELFPAY | END 2023-11-11 10:55 | disposition home or self-care (01) | LOC: SPT 11:01 | PROVIDERS: PCP Family Medicine Adult Medicine; Visit Provider Podiatrist Foot & Ankle Surgery | DX: Z46.89 Encounter for fitting and adjustment of other specified devices (principal); E11.42 Type 2 diabetes mellitus with diabetic polyneuropathy; M20.21 Hallux rigidus, right foot; M20.22 Hallux rigidus, left foot | CPT/HCPCS: L3030 ==

== ENCOUNTER → 2023-11-29 07:03 | Outpatient (BNVA) | payer MEDICARE, SELFPAY | PROVIDERS: PCP Family Medicine Adult Medicine; Visit Provider Podiatrist Foot & Ankle Surgery | DX: E11.42 Type 2 diabetes mellitus with diabetic polyneuropathy (principal); M20.21 Hallux rigidus, right foot; M20.22 Hallux rigidus, left foot; M20.41 Other hammer toe(s) (acquired), right foot; M20.42 Other hammer toe(s) (acquired), left foot; D48.5 Neoplasm of uncertain behavior of skin; L72.0 Epidermal cyst; L57.8 Other skin changes due to chronic exposure to nonionizing radiation; Z85.828 Personal history of other malignant neoplasm of skin; L21.8 Other seborrheic dermatitis; L57.0 Actinic keratosis; Z79.84 Long term (current) use of oral hypoglycemic drugs; L82.1 Other seborrheic keratosis; L81.4 Other melanin hyperpigmentation | CPT/HCPCS: 10060; 11102; 17000; 99213; 99214 ==

== ENCOUNTER → 2024-01-10 10:29 | Outpatient (BNVA) | payer MEDICARE, SELFPAY | PROVIDERS: PCP Family Medicine Adult Medicine; Visit Provider Dermatology | DX: C44.519 Basal cell carcinoma of skin of other part of trunk (principal); D48.5 Neoplasm of uncertain behavior of skin; L82.1 Other seborrheic keratosis; L81.4 Other melanin hyperpigmentation; D22.5 Melanocytic nevi of trunk; L72.0 Epidermal cyst | CPT/HCPCS: 11102; 99213 ==

== ENCOUNTER → 2024-01-19 07:51 | Outpatient (BNVA) | payer MEDICARE, SELFPAY | PROVIDERS: PCP Family Medicine Adult Medicine; Visit Provider Dermatology | DX: C44.612 Basal cell carcinoma of skin of right upper limb, including shoulder (principal); L56.5 Disseminated superficial actinic porokeratosis (DSAP); D04.39 Carcinoma in situ of skin of other parts of face | CPT/HCPCS: 13121; 17000; 17313; 99213 ==

== ENCOUNTER → 2024-02-14 07:34 | Outpatient (BNVA) | payer MEDICARE, SELFPAY | PROVIDERS: PCP Family Medicine Adult Medicine; Visit Provider Student in an Organized Health Care Education/Training Program | DX: M75.42 Impingement syndrome of left shoulder (principal); G56.01 Carpal tunnel syndrome, right upper limb | CPT/HCPCS: 20610; 99214; J3301 ==

== ENCOUNTER 2024-03-14 09:06 | Day surgery (SDC) | payer MEDICARE, SELFPAY ==
[2024-03-14] VITALS (7 sets, daily range): BP systolic 98–164; BP diastolic 67–87; PULSE 66–78; RESP 16; TEMP 36.4–37.1; O2SAT 91–99; BMI 34.9
--- NOTE | 2024-03-14 09:48 | P.ANESASSM_ITS ---
Pre-Anesthetic Assessment Height/Weight: Height 5 ft 10 in Weight 244 lb Temp Pulse Resp BP Pulse Ox O2 Del Method 97.8 F 66 16 164/87 97 Room Air 03/14/24 09:26 03/14/24 09:26 03/14/24 09:26 03/14/24 09:26 03/14/24 09:26 03/14/24 09:26 Preop Diagnosis: Carpal tunnel syndrome Operation Date: 03/14/24 10:55 Proposed Procedures p Carpal Tunnel Release(Right) - Saravanan Murrell DO s Guyon Canal Release(Right) - Saravanan Murrell DO Was Beta Araceli taken within 24 hours: N/A Was Clonidine taken within 24 hours: N/A Last intake: Intake Last Liquid Date 03/14/24 Last Liquid Time 06:00 Last Solid Date 03/13/24 Last Solid Time 21:30 Social No alcohol and No tobacco Exam alert, oriented x 3, clear to auscultation bilaterally and regular rate & rhythm Airway Submandibular: within normal limits Cervical ROM: within normal limits Mallampati: Class III Dentition: full Anesthetic Plan ASA status: 3 Anesthesia: MAC Other: No prior issues with anesthesia NPO since yesterday Type 2 diabetes on insulin, will check preop BS Hypertension on lisinopril and hydrochlorothiazide On chronic Xarelto last taken 03/12/2024, surgeon aware EKG showing sinus rhythm JUAN DAVID on CPAP METs greater than 4 Plan for MAC anesthetic with local via surgeon Medications/Allergies Home Medications Medication Instructions Recorded Confirmed Last Taken Type levothyroxine 112 mcg capsule 112 mcg PO QAM 06/02/20 03/13/24 03/14/24 History lisinopril 10 mg tablet (Prinivil) 10 mg PO BEDTIME 06/02/20 03/13/24 03/12/24 History hydrochlorothiazide 25 mg tablet 25 mg PO QAM 06/05/20 03/13/24 03/13/24 History acetaminophen 650 mg 1,300 mg PO PRN PRN Pain 07/29/20 03/13/24 03/13/24 History tablet,extended release (Tylenol 8 Hour) testosterone cypionate 200 mg/mL 200 mg IM Q9D 07/29/20 03/13/24 03/08/24 History intramuscular oil metformin 750 mg tablet,extended 1,500 mg PO QAM 03/05/21 03/13/24 03/13/24 History release 24 hr vitamin B complex 1 tab PO DAILY PRN Outbreak 03/05/21 03/13/24 03/12/24 History ammonium lactate 12 % topical cream 1 applic topical BID PRN Outbreak 08/23/22 03/13/24 Unknown History anastrozole 1 mg tablet 1 mg PO DAILY 08/23/22 03/13/24 03/08/24 History ketoconazole 2 % topical cream 1 applic topical BID PRN Outbreak 08/23/22 03/13/24 04/11/23 History metformin 500 mg tablet,extended 500 mg PO BEDTIME 08/23/22 03/13/24 03/12/24 History release 24 hr modafinil 200 mg tablet 200 mg PO DAILY 08/23/22 03/13/24 04/12/23 History tramadol 50 mg tablet 50 mg PO Q6H PRN Pain 08/23/22 03/13/24 03/13/24 History cyclobenzaprine 10 mg tablet 10 mg PO TID PRN muscle spasm #60 09/02/22 03/13/24 03/12/24 Rx tabs tamsulosin 0.4 mg capsule 0.4 mg PO BID #60 caps 10/21/22 03/13/24 03/13/24 Rx tadalafil 20 mg tablet (Cialis) 20 mg PO DAILY PRN sexual activity 04/12/23 03/13/24 04/11/23 History gabapentin 300 mg capsule 600 mg PO BEDTIME 10/05/23 03/13/24 03/12/24 History vitamin [id number] B1 100 mg-1 1 ml IM 10/05/23 02/14/24 03/08/24 History mg/mL intramuscular solution Farxiga 10 mg tablet 10 mg PO DAILY diabetes #90 tabs 10/12/23 03/13/24 03/12/24 Rx (dapagliflozin propanediol) mupirocin 2 % topical ointment 1 applic topical BID 2 weeks #22 10/13/23 03/13/24 Unknown Rx grams Sole supports #1 ea 11/29/23 02/14/24 Unknown Rx Lantus Solostar U-100 Insulin 100 See Rx Instructions .Route 01/10/24 03/13/24 Unknown Rx unit/mL (3 mL) subcutaneous pen .COMPLEX #45 mL (insulin glargine) rivaroxaban 10 mg tablet (Xarelto) 10 mg PO DAILY 03/13/24 03/13/24 03/12/24 History Allergies Allergy/AdvReac Type Severity Reaction Status Date / Time trimethoprim [From Bactrim] Allergy Rash Verified 03/14/24 09:25 oats AdvReac Severe severe Verified 03/14/24 09:25 diarhea sulfamethoxazole AdvReac Rash Verified 03/14/24 09:25 [From Bactrim] [facility] Anesthesia Medical History Obesity (BMI 30-39.9) Low vitamin B12 level Lumbar stenosis with neurogenic claudication Lumbar disc disease with radiculopathy Family history of prostate cancer Urolithiasis Low testosterone in male Elevated blood pressure reading in office with diagnosis of hypertension High serum creatine kinase (CK) Lower urinary tract symptoms (LUTS) Erectile dysfunction Hx of back injury Personal history of kidney stones Palpitations DVT (deep venous thrombosis) Family history of Alzheimer's disease Has been on Aricept for a long time related to this and some concerning symptoms years ago Hyperlipidemia Chronic anticoagulation Eliquis Multiple complaints Essential hypertension COPD (chronic obstructive pulmonary disease) History of thromboembolism History of DVT and PE in the past, on chronic Eliquis Hypothyroidism Type 2 diabetes mellitus Colon polyps Diverticulosis Surgical History Status post lumbar laminectomy Hx of vasectomy Hx of shoulder surgery Hx of wisdom tooth extraction Hx of oral surgery History of eye surgery H/O transurethral resection of prostate Family History Mother Dementia Father , AT AGE 89 Congestive heart failure (CHF) Diabetes Social History Smoking and tobacco/nicotine status: never used tobacco/nicotine Alcohol intake: current Alcohol intake frequency: few times a week Substance/Drug Use: never Household members: spouse Marital status: Current occupational status: employed Data Anesthesia Cardiac Studies: Echocardiogram Ultrasound 07/30/20
[2024-03-14 10:00] LABS: Glucose Point of Care 218 mg/dL (70-110)
[2024-03-14] MEDS: sodium chloride 0.9% 1,000 ML 30 ML IV (10:01)
[2024-03-14] MEDS: acetaminophen 1,000 MG/100 ML PIGGYBACK 400 MG IV (10:03)
[2024-03-14] MEDS: ketorolac 30 mg/mL INJ IVP (10:05)
[2024-03-14] MEDS: scopolamine 1.5 Patch 1 PATCH TRANSDERMA (10:05)
--- NOTE | 2024-03-14 10:22 | W.PM.OPSUD ---
Surgery/Procedure H&P Update DATE OF PROCEDURE: March 14, 2024 DATE H&P PERFORMED: 02/14/24 H&P UPDATE INFORMATION: I have reviewed H&P completed within last 30 days, I have examined patient prior to procedure and No changes to prior documentation PREOP DIAGNOSIS: Right carpal tunnel syndrome, right Guyon's canal entrapment PRIMARY INDICATION FOR PROCEDURE: Right carpal tunnel syndrome, right Guyon canal entrapment PLANNED PROCEDURE: Operation Date: 03/14/24 10:55 Proposed Procedures p Carpal Tunnel Release(Right) - Saravanan Murrell DO s Guyon Canal Release(Right) - Saravanan Murrell DO
[2024-03-14] MEDS: ceFAZolin 2,000 MG in sodium chloride 0.9% (plus) 50 ML 100 MG IV (10:33)
[2024-03-14] MEDS: lidocaine-epi 1% 20 mL INJ 5 ML INJECTION (11:06)
[2024-03-14] MEDS: ROPivacaine 0.5% SDV 30 mL 25 MG INJECTION (11:07)
--- NOTE | 2024-03-14 11:55 | PM.OP ---
Operative Report Date of procedure: March 14, 2024 Surgeon: Saravanan Murrell DO Procedure: Preoperative diagnosis? Right? 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 Right ulnar nerve release at Guyon's canal (wrist) Right carpal tunnel tenosynovial biopsy Surgeon: Saravanan Murrell, DO Estimated blood loss: 10mL Tourniquet? 43 minutes IV fluids: 600mL Complications: None Findings: See operative report narrative Condition: stable Disposition: same day Brief History: Patient's been seen and worked up in the outpatient setting and findings consistent with preoperative diagnosis.? Patient has? Right Carpal Tunnel Syndrome,Right ulnar entrapment at?guyons?canal? which has been worked up in the outpatient setting has physical exam findings consistent with this.? Patient's nerve study consistent with this.? Exam findings consistent with preoperative diagnosis.? Patient's failed conservative treatment.? As result through shared decision making agreed to proceed with right carpal tunnel release , right ulnar nerve release at the wrist at Guyon's canal with tenosynovial biopsy of the carpal tunnel. We talked about tx options as nonoperative and operative intervention.? Understands risk benefits complication alternatives surgical nonsurgical treatment options.? Understanding? risks pt agrees to proceed with surgical intervention. Understanding these risks pt agrees to proceed with surgery.? Consent obtained in preop. Procedure: Patient seen evaluate in the preoperative holding area.? Consent was reviewed and signed with patient.? Correct extremity marked.? Patient seen evaluated by anesthesia department once cleared for surgery was then taken back to the operative suite placed in supine position all bony prominences well-padded patient properly secured to bed.? Right upper extremity placed onto armboard.? Nonsterile tourniquet applied Right upper arm.? Patient then underwent anesthesia per the anesthesia department.? Patient's Right upper extremity was then prepped and draped in standard orthopedic fashion.? Final timeout performed.? Patient received appropriate preoperative antibiotics. Local anesthetic was placed at the preplanned incision site under sterile aseptic technique. Esmarch was used exsanguinate the Right upper extremity.? Tourniquet was insufflated to 250 mmHg. I started with my release of the ulnar nerve at the wrist.? An extensive laterally based palmar incision that extended proximal past the wrist crease with a Campbell incision was made directly over Guyon's canal.? At this point in time incision was made between the Pisiform and hamate to follow neurovascular bundle of Guyon's canal.? sharp scalpel incision was subsequently made through skin and then I switched to Littler dissection scissors.? At this point in time I dissected down over top?guyons?canal release the brevis muscle belly along the hypothenar region to obtain access into Guyon's canal.? Thick band of fascia was noted proximally just proximal to the wrist crease this was released and made sure there was complete decompression of the ulnar nerve proximally just prior to Guyon's canal subsequently released guyon canal and direct visualization with sharp scalpel excision as well as Littler dissection scissors with care utilizing my contact lens assistant to protect the neurovascular bundle.? At this point in time I continued to perform release of the fascia/the roof of Guyon's canal all the way to its most distal extent and the nerve was found to be completely free and untethered.? I then in order to perform release of the deep motor branch I then mobilized my dissection around the ulnar nerve and identified the deep motor branch as it courses towards the underneath fascia connected with the hamate.? I then utilized dissection scissors and under direct visualization completed my release carefully of the fascial bands tethering over top of the deep motor branch.? At this point in time the ulnar nerve was completely decompressed through Guyon's canal and? ulnar nerve had complete laxity with no areas of entrapment or tethering. No masses were noted within the contents of the?guyons?canal.? This completed the ulnar nerve release at the wrist. Next I then subsequently visualized from the ulnar aspect of the carpal tunnel.? Identified the distal extent as well as proximal extent into the antebrachial fascia.? As result approaching the carpal tunnel from the ulnar position just above the hook of the hamate made an incision through thickened Transverse carpal ligament.? It was noted there was significant entrapment of the median nerve.? I then switched to Littler dissection scissors to complete my dissection and release distally with care to protect neurovascular structures distally.? The tendons were healthy within the carpal tunnel.? No masses were noted.? I then carried my dissection proximally utilizing retraction by my contact lens assistant as well as direct visualization with loupe magnification identify the proximal extent of the carpal tunnel and release this to its entirety as well as identified the median nerve and released the tethering of the antebrachial fascia proximally past the wrist crease into the distal aspect of the forearm with no further evidence of median nerve entrapment.? The median nerve overall showed signs of compression and inflammation irritation but overall appeared healthy.??At this point in time I then obtained the tenosynovial biopsy of the carpal tunnel I excised a thin leaflet of the transverse carpal ligament as well as tenosynovium off the flexor tendons. This was then sent for pathology and a [place] red staining for amyloidosis. ?Next the wound bed was thoroughly irrigated.? Tourniquet was deflated.? Hemostasis was satisfactory.? ?The incision was then closed in standard interrupted mattress fashion.? Dressing was Xeroform 4 x 4's ABD Curlex soft roll and an Doron wrap has a bulky soft dressing and volar splint.? Patient was then awakened from anesthesia and taken to PACU in stable condition. Disposition: Patient taken to PACU in stable condition recovering well.? Patient will receive appropriate discharge instructions as well as pain medication postoperatively.? We will follow-up with me in the office in 2 weeks.? Patient understands agrees with current plan.? All questions answered.? pt understands if any questions or concerns and contact the office for follow-up appointment..
--- NOTE | 2024-03-14 12:11 | W.PM.BPON ---
Date of Procedure: [March 14, 2024] Surgeon: Dr. Handy DO Particle Board Supervisor(s): [Jm Murrell PA-C] Procedure(s) performed: [Right carpal tunnel release right Guyon canals release Tenosynovitis biopsy] Findings of the procedure(s): [Right carpal tunnel syndrome, right Guyon's canal entrapment. Procedure went well and as planned] Estimated blood loss: [10 mL] Specimen(s) removed: [Tenosynovitis biopsy performed and sent to lab] Post-operative diagnosis: [Right carpal tunnel syndrome, right Guyon's canal entrapment.]
--- NOTE | 2024-03-14 12:17 | PM.PACU ---
PACU note Narrative: Patient is 74-year-old male that just underwent a right carpal tunnel release and right Guyon canal release. Patient transferred to PACU in stable condition. Pain is well controlled. Dressing on hand is dry and in place. Patient's fingers are warm and well-perfused. Patient can wiggle fingers. normal cap refill under 2 seconds. Patient has normal elbow range of motion. Unable to assess sensation due to residual localized anesthetic. Exam: awake Disposition: discharged
--- NOTE | 2024-03-14 13:04 | ANE.PACU2 ---
Inpatient post-anesthesia follow up: Airway intact: Yes Vital signs: Temperature 98.7 F Pulse Rate 66 Respiratory Rate 16 Blood Pressure 142/82 Pulse Oximetry 97 Oxygen Delivery Me thod Room Air Oxygen Flow Rate 6 Fraction of Inspir ed Oxygen Hydration adequate: Yes Nausea and vomiting: No Pain level: 1 Mental status: Baseline
== END 2024-03-14 13:06 | disposition home or self-care (01) ==
PROVIDERS: PCP Family Medicine; Visit Provider Student in an Organized Health Care Education/Training Program
PROC: (CPT 64721; principal; 2024-03-14 10:45)
PROC: (CPT 64719; 2024-03-14 10:45)
DX: G56.01 Carpal tunnel syndrome, right upper limb (principal); G56.21 Lesion of ulnar nerve, right upper limb; E11.9 Type 2 diabetes mellitus without complications; Z79.4 Long term (current) use of insulin; I10 Essential (primary) hypertension; Z79.01 Long term (current) use of anticoagulants; G47.33 Obstructive sleep apnea (adult) (pediatric); Z79.84 Long term (current) use of oral hypoglycemic drugs; E66.9 Obesity, unspecified; Z68.35 Body mass index [BMI] 35.0-35.9, adult; Z86.718 Personal history of other venous thrombosis and embolism; E78.5 Hyperlipidemia, unspecified; E03.9 Hypothyroidism, unspecified
CPT/HCPCS: 64719; 64721; 36416; 82962; 88305; J0131; J0690; J1885; J2250; J2704; J2795; J3010; J7030

== ENCOUNTER 2024-03-22 10:25 | Outpatient (CLI) | payer MEDICARE, SELFPAY ==
--- NOTE | 2024-03-22 10:32 | XR_ITS ---
WS: [id number] XR thoracic spine 3V* [id number] REASON FOR EXAM: MID BACK PAIN ON R SIDE FINDINGS: Minimal levoscoliosis of the thoracic spine. No significant thoracic vertebral body abnormality. Mild disc space narrowing with mild osteophytosis in the mid and lower thoracic spine. XR/XR thoracic spine 3V* [id number] IMPRESSION: Mild degenerative spondylosis of the thoracic spine as above.
== END 2024-03-22 10:26 | disposition home or self-care (01) ==
PROVIDERS: PCP Family Medicine; Visit Provider Nurse Practitioner Family
DX: M54.6 Pain in thoracic spine (principal)
CPT/HCPCS: 72072

== ENCOUNTER → 2024-03-29 09:27 | Outpatient (BNVA) | payer MEDICARE, SELFPAY | PROVIDERS: PCP Family Medicine; Visit Provider Physician Assistant | DX: G56.02 Carpal tunnel syndrome, left upper limb (principal); Z98.890 Other specified postprocedural states; G56.22 Lesion of ulnar nerve, left upper limb | CPT/HCPCS: 99214 ==

== ENCOUNTER 2024-04-13 08:18 | Outpatient (CLI) | payer MEDICARE, SELFPAY ==
--- NOTE | 2024-04-13 08:28 | MR_ITS ---
WS: [id number] MRI THORACIC SPINE noncontrast HISTORY: PAIN COMPARISON: 06/23/2023 MRI head, thoracic spine radiograph 03/22/2024 TECHNIQUE: Multiplanar sequences are performed in sagittal and axial planes. On the localizer images a cystic mass in the RIGHT middle cranial fossa which is send previously desc ribed. Posterior thoracic alignment is normal. Disc spaces are well-maintained. No fractures. Signal within the cord is normal. No cord atrophy or enlargement. No cord edema. T1-2: Normal. T2-3: Normal. T3-4: Normal. T4-5: Normal. T5-6: Normal. T6-7: Normal. T7-8: Small central disc protrusion. No stenosis. T8-9: Small LEFT paracentral disc protrusion without stenosis. T9-10: Mild bilateral facet arthritis. T10-11: Mild bilateral facet arthritis. T11-12: Normal. MR/MR thoracic spin wo con* [id number] IMPRESSION: 1. No high-grade central or foraminal stenosis within the thoracic spine. 2. Small disc protrusions at T7-8 and T9-10 without significant stenosis. 3. No signal abnormality within the cord.
== END 2024-04-13 08:19 | disposition home or self-care (01) ==
LOC: RAD 08:23
PROVIDERS: PCP Family Medicine; Visit Provider Nurse Practitioner Family
DX: M51.24 Other intervertebral disc displacement, thoracic region (principal); M41.80 Other forms of scoliosis, site unspecified; M99.79 Connective tissue and disc stenosis of intervertebral foramina of abdomen and other regions
CPT/HCPCS: 72146

== ENCOUNTER 2024-04-18 06:09 | Day surgery (SDC) | payer MEDICARE, SELFPAY ==
[2024-04-18] VITALS (7 sets, daily range): BP systolic 112–138; BP diastolic 65–93; PULSE 65–85; RESP 16–18; TEMP 36.3–36.4; O2SAT 95–97
[2024-04-18] MEDS: sodium chloride 0.9% 1,000 ML 30 ML IV (06:46)
[2024-04-18] MEDS: acetaminophen 1,000 MG/100 ML PIGGYBACK 400 MG IV (06:49)
[2024-04-18] MEDS: ketorolac 30 mg/mL INJ IVP (06:51)
[2024-04-18 06:52] LABS: Glucose Point of Care 172 mg/dL (70-110)
--- NOTE | 2024-04-18 07:08 | ECG_ITS ---
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 Measurements Intervals [place] Rate: 76 P: 43 ND: 198 QRS: -18 QRSD: 118 T: 51 QT: 365 QTc: 412 Interpretive Statements SINUS RHYTHM MODERATE INTRAVENTRICULAR CONDUCTION DELAY [110+ ms QRS DURATION] VOLTAGE CRITERIA FOR LVH [MEETS CRITERIA IN ONE OF: R(aVL), S(V1), R(V5), R(V5/V6)+S(V1)] NONSPECIFIC T-WAVE ABNORMALITY INTERPRETATION BASED ON A DEFAULT AGE OF 40 YEARS Compared to ECG 08/23/2022 13:56:08 Intraventricular conduction delay now present Left ventricular hypertrophy now present Sinus arrhythmia no longer present T-wave abnormality still present Electronically Signed On 04-18-2024 19:38:16 ROLL RECLAIMER by Chino Isaacs M.D. [id number]
--- NOTE | 2024-04-18 07:12 | W.PM.OPSUD ---
Surgery/Procedure H&P Update DATE OF PROCEDURE: April 18, 2024 DATE H&P PERFORMED: 03/29/24 H&P UPDATE INFORMATION: I have reviewed H&P completed within last 30 days, I have examined patient prior to procedure and No changes to prior documentation CHANGES TO PREVIOUS DOCUMENTATION: Patient is doing well with right side ready proceed with left carpal tunnel release, left Guyon's canal release. PREOP DIAGNOSIS: Left carpal tunnel syndrome, left Guyon's canal entrapment PRIMARY INDICATION FOR PROCEDURE: Left carpal tunnel syndrome, left Guyon canal entrapment PLANNED PROCEDURE: Operation Date: 04/18/24 07:45 Proposed Procedures p Carpal Tunnel Release(Left) - Saravanan Murrell DO s Guyon Canal Release(Left) - Saravanan Murrell DO
--- NOTE | 2024-04-18 07:17 | P.ANESASSM_ITS ---
Pre-Anesthetic Assessment Height/Weight: Height 5 ft 10.5 in Weight 245 lb Temp Pulse Resp BP Pulse Ox O2 Del Method 97.4 F L 65 18 138/93 97 Room Air 04/18/24 07:01 04/18/24 07:01 04/18/24 07:01 04/18/24 07:01 04/18/24 07:01 04/18/24 07:03 Preop Diagnosis: Left carpal tunnel syndrome, left Guyon's canal entrapment Operation Date: 04/18/24 07:45 Proposed Procedures p Carpal Tunnel Release(Left) - Saravanan Starke, DO s Guyon Canal Release(Left) - Saravanan Starke, DO Was Beta Araceli taken within 24 hours: N/A Was Clonidine taken within 24 hours: N/A Last intake: Intake Last Liquid Date 04/17/24 Last Liquid Time 17:30 Last Solid Date 04/17/24 Last Solid Time 17:30 Social No alcohol and No tobacco Exam alert, oriented x 3, clear to auscultation bilaterally and regular rate & rhythm Airway Submandibular: within normal limits Cervical ROM: within normal limits Mallampati: Class III Dentition: full Comments: Comments: Large neck Anesthetic Plan ASA status: 3 Anesthesia: MAC Other: Patient recently had a similar procedure under MAC anesthetic, postop patient had some difficulty with breathing secondary to sleep apnea NPO since yesterday Type 2 diabetes on insulin, preop BS 172 Hypertension on lisinopril and hydrochlorothiazide On chronic Xarelto last taken 04/16/2024, surgeon aware EKG showing sinus rhythm JUAN DAVID on CPAP METs greater than 4 Plan for MAC anesthetic with local via surgeon Medications/Allergies Home Medications Medication Instructions Recorded Confirmed Last Taken Type levothyroxine 112 mcg capsule 112 mcg PO QAM 06/02/20 04/17/24 04/17/24 History lisinopril 10 mg tablet (Prinivil) 10 mg PO BEDTIME 06/02/20 04/17/24 04/16/24 History hydrochlorothiazide 25 mg tablet 25 mg PO QAM 06/05/20 04/17/24 04/17/24 History acetaminophen 650 mg 1,300 mg PO PRN PRN Pain 07/29/20 04/17/24 04/17/24 History tablet,extended release (Tylenol 8 Hour) testosterone cypionate 200 mg/mL 200 mg IM Q9D 07/29/20 04/17/24 04/12/24 History intramuscular oil metformin 750 mg tablet,extended 1,500 mg PO QAM 03/05/21 04/17/24 04/17/24 History release 24 hr anastrozole 1 mg tablet 1 mg PO DAILY 08/23/22 04/17/24 04/17/24 History metformin 500 mg tablet,extended 500 mg PO BEDTIME 08/23/22 04/17/24 04/16/24 History release 24 hr tramadol 50 mg tablet 50 mg PO Q6H PRN Pain 08/23/22 04/17/24 04/15/24 History tamsulosin 0.4 mg capsule 0.4 mg PO BID #60 caps 10/21/22 04/17/24 04/17/24 Rx tadalafil 20 mg tablet (Cialis) 20 mg PO DAILY PRN sexual activity 04/12/23 04/17/24 04/11/23 History gabapentin 300 mg capsule 600 mg PO BEDTIME 10/05/23 04/17/24 04/16/24 History mupirocin 2 % topical ointment 1 applic topical BID 2 weeks #22 10/13/23 04/17/24 03/28/24 Rx grams Sole supports #1 ea 11/29/23 03/29/24 Unknown Rx Lantus Solostar U-100 Insulin 100 See Rx Instructions .Route 01/10/24 04/17/24 04/16/24 Rx unit/mL (3 mL) subcutaneous pen .COMPLEX #45 mL (insulin glargine) rivaroxaban 10 mg tablet (Xarelto) 10 mg PO DAILY 03/13/24 04/17/24 04/16/24 History tizanidine 4 mg capsule (Zanaflex) 4 mg PO TID PRN Muscle Spasm 03/19/24 04/17/24 Unknown History methocarbamol 500 mg tablet 500 mg PO TID #30 tabs 03/29/24 04/17/24 04/17/24 Rx Farxiga 10 mg tablet 10 mg PO DAILY diabetes #90 tabs 04/04/24 04/17/24 04/16/24 Rx (dapagliflozin propanediol) Allergies Allergy/AdvReac Type Severity Reaction Status Date / Time trimethoprim [From Bactrim] Allergy Rash Verified 04/17/24 13:26 oats AdvReac Severe severe Verified 04/17/24 13:26 diarhea sulfamethoxazole AdvReac Rash Verified 04/17/24 13:26 [From Bactrim] Current Medications Generic Name Dose Route Start Last Admin Trade Name Michelle PRN Reason Stop Dose Admin Sodium Chloride 1,000 mls @ 30 mls/hr 04/18/24 06:30 04/18/24 06:46 Sodium Chloride 0.9% IV 04/19/24 06:29 30 mls/hr .Q24H SABAS Administration PFSH Anesthesia Medical History Obesity (BMI 30-39.9) Low vitamin B12 level Lumbar stenosis with neurogenic claudication Lumbar disc disease with radiculopathy Family history of prostate cancer Urolithiasis Low testosterone in male Elevated blood pressure reading in office with diagnosis of hypertension High serum creatine kinase (CK) Lower urinary tract symptoms (LUTS) Erectile dysfunction Hx of back injury Personal history of kidney stones Palpitations DVT (deep venous thrombosis) Family history of Alzheimer's disease Has been on Aricept for a long time related to this and some concerning symptoms years ago Hyperlipidemia Chronic anticoagulation Eliquis Multiple complaints Essential hypertension COPD (chronic obstructive pulmonary disease) History of thromboembolism History of DVT and PE in the past, on chronic Eliquis Hypothyroidism Type 2 diabetes mellitus Colon polyps Diverticulosis Surgical History Status post lumbar laminectomy Hx of vasectomy Hx of shoulder surgery Hx of wisdom tooth extraction Hx of oral surgery History of eye surgery H/O transurethral resection of prostate Family History Mother Dementia Father , AT AGE 89 Congestive heart failure (CHF) Diabetes Social History Smoking and tobacco/nicotine status: never used tobacco/nicotine Alcohol intake: current Alcohol intake frequency: few times a week Substance/Drug Use: never Household members: spouse Marital status: Current occupational status: employed Data Anesthesia Cardiac Studies: Echocardiogram Ultrasound 07/30/20
[2024-04-18 07:30] LABS: Hematocrit 46.6 % (37-53); Mean Corpuscular HGB Conc 32.4 g/dL (30-55); Mean Corpuscular Hemoglobin 29.2 pg (27-33); Mean Platelet Volume 10.3 fL (7.4-10.4); Platelet Count 219 10^3/cmm (157-399); Red Blood Count 5.18 10^6/uL (3.85-5.65); Red Cell Distribution Width 13.7 % (12.1-15.1); White Blood Count 7.34 10^3/uL (3.29-11.43)
[2024-04-18] MEDS: ceFAZolin 2,000 MG in sodium chloride 0.9% (plus) 50 ML 100 MG IV (07:39)
[2024-04-18 07:48] LABS: Anion Gap 14.8 (5-19); Blood Urea Nitrogen 18 mg/dL (8-23); Calcium 8.8 mg/dL (8.5-10.5); Carbon Dioxide 27 mmol/L (22-29); Chloride 97 mmol/L (98-107); Creatinine Clr Calc Pharmacy 68.4362; Glucose 175 mg/dL (65-115); Osmolality Calculated 286 mOsm/kg (285-295); Potassium 3.8 mmol/L (3.5-5.1); Sodium 135 mmol/L (136-145)
[2024-04-18] MEDS: ROPivacaine 0.5% SDV 30 mL 150 MG INJECTION (07:55)
[2024-04-18] MEDS: lidocaine-epi 1% PF 1:200,000 30 mL SDV INJECTION (07:55)
[2024-04-18 08:25] LABS: Absolute Eosinophils 0.1 10^3/cmm (0.0-0.7); Absolute Neutrophil 5.7 10^3/cmm (1.4-6.5); Absolute Segmented Neutrophil 5.7 10/cmm (1.6-7.1); Eosinophils 1 %; Lymphocytes 8 %; Monocytes Absolute 0.6 10^3/cmm (0.1-0.6); Platelet Estimate Normal (Normal); Segmented Neutrophils 77 %; Total Cells Counted 100 (0-100)
--- NOTE | 2024-04-18 09:09 | P.OP_ITS ---
Operative Report Date of procedure: April 18, 2024 Surgeon: Saravanan Murrell DO Party Plan Sales Director: Jm Murrell PA-C: PA was necessary for assistance in this case with hand positioning to execute the procedure, retraction and protection of neurovascular structures as well as to assist with wound closure and dressing application. Procedure: Preoperative diagnosis? Left? 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 Left ulnar nerve release at?Guyon's canal (wrist) Surgeon: Saravanan Murrell DO Estimated blood loss: 2mL Tourniquet? 52 minutes IV fluids: 700mL Complications: None Findings: See operative report narrative Condition: stable Disposition: same day Brief History: Patient's been seen and worked up in the outpatient setting and findings consistent with preoperative diagnosis.? Patient has? left Carpal Tunnel Syndrome,left ulnar entrapment at?guyons canal? which has been worked up in the outpatient setting has physical exam findings consistent with this.? Patient's nerve study consistent with this.? Exam findings consistent with preoperative diagnosis.? Patient's failed conservative treatment.? As result through shared decision making agreed to proceed with left carpal tunnel release , left ulnar nerve release at the wrist. We talked about tx options as nonoperative and operative intervention.? Understands risk benefits complication alternatives surgical nonsurgical treatment options.? Understanding? risks pt agrees to pro ceed with surgical intervention. Understanding these risks pt agrees to proceed with surgery.? Consent obtained in office. Procedure: Patient seen evaluate in the preoperative holding area.? Consent was reviewed and signed with patient.? Correct extremity marked.? Patient seen evaluated by anesthesia department once cleared for surgery was then taken back to the operative suite placed in supine position all bony prominences well-padded patient properly secured to bed.? Left upper extremity placed onto armboard.? Nonsterile tourniquet applied Left upper arm.? Patient then underwent anesthesia per the anesthesia department.? Patient's Left upper extremity was then prepped and draped in standard orthopedic fashion.? Final timeout performed.? Patient received appropriate preoperative antibiotics. Esmarch was used exsanguinate the Left upper extremity.? Tourniquet was insufflated to 250 mmHg. I started with my release of the ulnar nerve at the wrist.? An extensive latera lly based palmar incision that extended proximal past the wrist crease with a Campbell incision was made directly over?Guyon's canal.? At this point in time incision was made between the Pisiform and hamate to follow neurovascular bundle of?Guyon's canal.? sharp scalpel incision was subsequently made through skin and then I switched to Littler dissection scissors.? At this point in time I dissected down over top?guyons canal release the brevis muscle belly along the hypothenar region to obtain access into?Guyon's canal.? Thick band of fascia was noted proximally just proximal to the wrist crease this was released and made sure there was complete decompression of the ulnar nerve proximally just prior to?Guyon's canal subsequently released?guyon?canal and direct visualization with sharp scalpel excision as well as Littler dissection scissors with care utilizing my sales assistants and salespersons to protect the neurovascular bundle.? At this point in time I continued to perform release of the fascia/the roof of?Guyon's canal all the way to its most distal extent and the nerve was found to be completely free and untethered.? I then in order to perform release of the deep motor branch I then mobilized my dissection around the ulnar nerve and identified the deep motor branch as it courses towards the under knee fascia connected with the hamate.? I then utilized dissection scissors and under direct visualization completed my release carefully of the fascial bands tethering over top of the deep motor branch.? At this point in time the ulnar nerve was completely decompressed through?Guyon's canal and? ulnar nerve had complete laxity with no areas of entrapment or tethering. No masses were noted within the contents of the?guyons canal.? This completed the ulnar nerve release at the wrist. Next I then subsequently visualized from the ulnar aspect of the carpal tunnel.? Identified the distal extent as well as proximal extent into the antebrachial fascia.? As result approaching the carpal tunnel from the ulnar position just above the hook of the hamate made an incision through thickened Transverse carpal ligament.? It was noted there was significant entrapment of the median nerve.? I then switched to Littler dissection scissors to complete my dissection and release distally with care to protect neurovascular structures distally.? The tendons were healthy within the carpal tunnel.? No masses were noted.? I then carried my dissection proximally utilizing retraction by my sales assistants and salespersons as well as direct visualization with loupe magnification identify the proximal extent of the carpal tunnel and release this to its entirety as well as identified the median nerve and released the tethering of the antebrachial fascia proximally past the wrist crease into the distal aspect of the forearm with no further evidence of median nerve entrapment.? The median nerve overall showed signs of compression and inflammation irritation but overall appeared healthy.?? ?Next the wound bed was thoroughly irrigated.? Tourniquet was deflated.? Hemostasis was satisfactory.? ?The incision was then closed in standard interrupted mattress fashion.? Dressing was Xeroform 4 x 4's ABD Curlex soft roll and an Doron wrap has a bulky soft dressing and volar splint.? Patient was then awakened from anesthesia and taken to PACU in stable condition. Disposition: Patient taken to PACU in stable condition recovering well.? Patient will receive appropriate discharge instructions as well as pain medication postoperatively.? We will follow-up with me in the office in 2 weeks.? Patient understands agrees with current plan.? All questions answered.? pt understands if any questions or concerns and contact the office for follow-up appointment.
--- NOTE | 2024-04-18 10:20 | ANE.PACU2 ---
Inpatient post-anesthesia follow up: Airway intact: Yes Vital signs: Temperature 97.5 F Pulse Rate 70 Respiratory Rate 18 Blood Pressure 113/72 Pulse Oximetry 97 Oxygen Delivery Me thod Room Air Oxygen Flow Rate Fraction of Inspir ed Oxygen Hydration adequate: Yes Nausea and vomiting: No Pain level: 1 Mental status: Baseline
--- NOTE | 2024-04-18 11:49 | P.BOP_ITS ---
Date of Procedure: [April 18, 2024] Surgeon: [Dr. Murrell DO] Bulk Pallet Builder(s): [Jm Murrell PA-C] Procedure(s) performed: [Left carpal tunnel release and left Guyon's canal release] Findings of the procedure(s): [Left carpal tunnel syndrome and left Guyon canal entrapment. procedure went well and as planned] Estimated blood loss: [2 ml] Specimen(s) removed: [n/a] Post-operative diagnosis: [Left carpal tunnel syndrome and left Guyon canal entrapment]
== END 2024-04-18 10:20 | disposition home or self-care (01) ==
PROVIDERS: Student in an Organized Health Care Education/Training Program; PCP Family Medicine; Visit Provider Student in an Organized Health Care Education/Training Program
PROC: (CPT 64721; principal; 2024-04-18 07:45)
PROC: (CPT 64719; 2024-04-18 07:45)
DX: G56.02 Carpal tunnel syndrome, left upper limb (principal); G56.22 Lesion of ulnar nerve, left upper limb; E11.9 Type 2 diabetes mellitus without complications; Z79.4 Long term (current) use of insulin; I10 Essential (primary) hypertension; Z79.01 Long term (current) use of anticoagulants; G47.33 Obstructive sleep apnea (adult) (pediatric); Z86.718 Personal history of other venous thrombosis and embolism; E03.9 Hypothyroidism, unspecified
CPT/HCPCS: 64718; 64721; 36415; 36416; 80048; 82962; 85007; 85027; 93005; J0131; J0690; J1885; J2704; J2795; J3010; J7030

== ENCOUNTER → 2024-05-03 08:40 | Outpatient (BNVA) | payer MEDICARE, SELFPAY | PROVIDERS: PCP Family Medicine; Visit Provider Physician Assistant | DX: Z98.890 Other specified postprocedural states (principal) | CPT/HCPCS: 99024 ==

== ENCOUNTER → 2024-05-21 07:57 | Outpatient (BNVA) | payer MEDICARE, SELFPAY | PROVIDERS: PCP Family Medicine; Visit Provider Nurse Practitioner Family | DX: L57.8 Other skin changes due to chronic exposure to nonionizing radiation (principal); L82.1 Other seborrheic keratosis; L81.4 Other melanin hyperpigmentation; Z08 Encounter for follow-up examination after completed treatment for malignant neoplasm; Z85.828 Personal history of other malignant neoplasm of skin | CPT/HCPCS: 11102; 17000; 99214 ==

== ENCOUNTER → 2024-05-29 07:31 | Outpatient (BNVA) | payer MEDICARE, SELFPAY | PROVIDERS: PCP Family Medicine; Visit Provider Anesthesiology Pain Medicine | DX: M79.18 Myalgia, other site (principal); M47.22 Other spondylosis with radiculopathy, cervical region; M51.9 Unspecified thoracic, thoracolumbar and lumbosacral intervertebral disc disorder | CPT/HCPCS: 20553; 99214; J1010; J3490 ==

== ENCOUNTER → 2024-07-13 10:27 | Outpatient (BNVA) | payer MEDICARE, SELFPAY | PROVIDERS: PCP Family Medicine; Visit Provider Nurse Practitioner Family | DX: L57.8 Other skin changes due to chronic exposure to nonionizing radiation (principal); Z08 Encounter for follow-up examination after completed treatment for malignant neoplasm; Z85.828 Personal history of other malignant neoplasm of skin; D48.5 Neoplasm of uncertain behavior of skin; L57.0 Actinic keratosis | CPT/HCPCS: 11102; 17000; 99213 ==

== ENCOUNTER 2024-07-26 11:56 | Outpatient (CLI) | payer MEDICARE, SELFPAY ==
--- NOTE | 2024-07-26 12:05 | USR_ITS ---
PROCEDURE INFORMATION: Exam: US Pelvis, Complete, Prostate and Bladder Exam date and time: 07/26/2024 12:12 PM Age: 74 years old Clinical indication: Condition or disease; Mass, lump, or swelling; Other: Groin; Additional info: L groin mass. Concern for lt inguinal hernia TECHNIQUE: Imaging protocol: Transabdominal complete pelvic ultrasound (nonobstetric). Real time ultrasound with image documentation. COMPARISON: US renal BI* [id number] 07/28/2020 7:18 AM FINDINGS: Lymph nodes: Bilateral visible inguinal lymph nodes are morphologically normal. Other findings: No inguinal hernia is visible at this time. US/US pelvic limited [id number] IMPRESSION: No acute findings.
== END 2024-07-26 11:57 | disposition home or self-care (01) ==
PROVIDERS: PCP Family Medicine; Visit Provider Nurse Practitioner Family
DX: R19.09 Other intra-abdominal and pelvic swelling, mass and lump (principal); R59.0 Localized enlarged lymph nodes
CPT/HCPCS: 76857

== ENCOUNTER → 2024-08-01 15:14 | Outpatient (BNVA) | payer MEDICARE, SELFPAY | PROVIDERS: PCP Family Medicine; Visit Provider Nurse Practitioner Family | DX: L60.0 Ingrowing nail (principal); L81.4 Other melanin hyperpigmentation; Z48.817 Encounter for surgical aftercare following surgery on the skin and subcutaneous tissue | CPT/HCPCS: 99213 ==

== ENCOUNTER → 2024-08-09 14:44 | Outpatient (BNVA) | payer MEDICARE, SELFPAY | PROVIDERS: PCP Family Medicine; Visit Provider Internal Medicine | DX: R07.9 Chest pain, unspecified (principal); R94.31 Abnormal electrocardiogram [ECG] [EKG]; I10 Essential (primary) hypertension; E78.5 Hyperlipidemia, unspecified; I48.91 Unspecified atrial fibrillation; Z86.718 Personal history of other venous thrombosis and embolism | CPT/HCPCS: 93005; 99204 ==

== ENCOUNTER 2024-09-13 07:46 | Outpatient (CLI) | payer MEDICARE, SELFPAY ==
--- NOTE | 2024-09-13 07:45 | USCV_ITS ---
Bill Patel Age: 74 Gender: M : 1950 Exam Date: 09/13/2024 08:04 Ordering Phys: Maurice Del Real M.D ([email or web address]) Technologist: Exam Location: [facility] Indication: cp sob BP: / HR: 62 Rhythm: Sinus Technical Quality: Adequate MEASUREMENTS (Male / Female) Normal Values 2D ECHO LV Diastolic Diameter PLAX 4.5 cm 4.2 - 5.9 / 3.9 - 5.3 cm IVS Diastolic Thickness 1.6 cm 0.6 - 1.0 / 0.6 - 0.9 cm IVS Systolic Thickness 1.7 cm LVPW Diastolic Thickness 1.3 cm 0.6 - 1.0 / 0.6 - 0.9 cm LVPW Systolic Thickness 1.7 cm LVOT Diameter 2.0 cm LV Ejection Fraction 2D Teich 67.9 % LV Ejection Fraction MOD 4C 71.3 % LA Diameter 3.8 cm RA Systolic Volume 4C AL 62.2 ml RA Systolic Volume 4C MOD 51.9 ml Aorta at Sinotubular Diameter 3.1 cm IVC Diameter 2.7 cm M-MODE LA Ao Ratio MM 1.2 AV Cusp Separation MM 2.8 cm DOPPLER AV Peak Velocity 155.0 cm/s LVOT Peak Velocity 112.0 cm/s AV Area Cont Eq vti 3.3 cm squared AV Area Cont Eq pk 2.4 cm squared MV Peak Velocity 93.0 cm/s MV Area PHT 3.4 cm squared Mitral E to A Ratio 1.0 TV Peak Velocity 269.0 cm/s TR Peak Velocity 295.0 cm/s TR Peak Gradient 34.8 mmHg TV Peak E Velocity 65.0 cm/s PV Peak Velocity 110.7 cm/s FINDINGS Left Ventricle Normal left ventricular size, systolic function and wall thickness, with no regional wall motion abnormalities. Left ventricular ejection fraction is estimated at 60 %. Grade II/IV diastolic dysfunction, moderately elevated filling pressures. Right Ventricle The right ventricle is normal in size and function. Right Atrium The right atrium is normal in size. Left Atrium The left atrium is normal in size. Mitral Valve Mildly thickened mitral valve. No mitral valve stenosis. Trace mitral valve regurgitation. Aortic Valve Moderate aortic valve calcification. No aortic valve stenosis. Mild aortic valve regurgitation. Tricuspid Valve Structurally normal tricuspid valve without significant stenosis or regurgitation. Pulmonary artery systolic pressure is normal. Pulmonic Valve Structurally normal pulmonic valve without significant stenosis. There is no pulmonic regurgitation. Pericardium Normal pericardium without effusion. Aorta Normal ascending aorta dimension. IVC The inferior vena cava appears normal. CONCLUSIONS Normal left ventricular size, systolic function and wall thickness, with no regional wall motion abnormalities. Left ventricular ejection fraction is estimated at 60 %. Grade II/IV diastolic dysfunction, moderately elevated filling pressures. Mildly thickened mitral valve. No mitral valve stenosis. Trace mitral valve regurgitation. There is no pericardial effusion. Right atrial pressure is around 5 mm of mercury. Home Luis MD (Electronically Signed) Final Date: 14 Sep 2024 13:09 S
== END 2024-09-13 07:47 | disposition home or self-care (01) ==
LOC: RAD 07:47
PROVIDERS: PCP Family Medicine; Visit Provider Internal Medicine
DX: R07.9 Chest pain, unspecified (principal); R93.1 Abnormal findings on diagnostic imaging of heart and coronary circulation; I05.9 Rheumatic mitral valve disease, unspecified; I35.8 Other nonrheumatic aortic valve disorders; I35.1 Nonrheumatic aortic (valve) insufficiency
CPT/HCPCS: 93306

== ENCOUNTER → 2024-10-26 08:48 | Outpatient (BNVA) | payer MEDICARE, SELFPAY | DX: E11.65 Type 2 diabetes mellitus with hyperglycemia (principal); Z79.4 Long term (current) use of insulin | CPT/HCPCS: 80053; 80061; 83036 ==

== ENCOUNTER → 2024-11-02 07:57 | Outpatient (BNVA) | payer MEDICARE, SELFPAY | PROVIDERS: Visit Provider Nurse Practitioner Family | DX: L21.8 Other seborrheic dermatitis (principal); L57.8 Other skin changes due to chronic exposure to nonionizing radiation; L81.4 Other melanin hyperpigmentation; L82.0 Inflamed seborrheic keratosis; R20.8 Other disturbances of skin sensation; L29.89 Other pruritus; Z78.9 Other specified health status; L57.0 Actinic keratosis | CPT/HCPCS: 17000; 17110; 99214 ==

== ENCOUNTER 2024-11-13 07:27 | Outpatient (CLI) | payer MEDICARE, SELFPAY ==
--- NOTE | 2024-11-13 | ECG_ITS ---
[facility] Test Date: 2024-11-13 Pat Name: Bill Patel Department: Room: Gender: Male [employer]: : 1950 Requested By: Maurice Del Real Order Number: [id number] Annika MD: Maurice Del Real M.D. Interpretive Statements EXERCISE MIBI EXERCISE DATA: The patient was exercised by Johnie protocol. Baseline heart rate was 68 beats per minute. Baseline blood pressure was 128/74 millimeters of mercury. Maximal predicted heart rate was 147 beats per minute. Maximum heart rate achieved was 134 which was 91% of the maximum predicted heart rate. Maximum blood pressure was 187/91 millimeters of mercury. Total exercise time was 5 minutes and 59 seconds. Maximum METs achieved was 7.0. The reason for ending the test was completion of protocol. The patient complained of shortness of breath during the stress test, which then resolved at the end of the test. ELECTROCARDIOGRAM: BASELINE: Showed sinus rhythm, normal axis, no significant ST-T changes at the baseline noted. [] EXERCISE: At the peak exercise level, [] No significant ST-T changes suggestive of ischemia noted. [] RECOVERY: During the recovery period, heart rate dropped appropriately. No significant ST-T changes in the recovery suggestive of ischemia noted. [] CONCLUSION: 1. Exercise capacity is fair 2. Heart rate response was appropriate 3. Blood pressure response was appropriate 4. Symptoms not suggestive of ischemia. 5. Electrocardiogram portion of the stress test was not suggestive of ischemia. 6. Nuclear scan will be documented separately. Electronically Signed On 11-24-2024 12:52:32 CDT by Maurice Del Real M.D. [email or web address]
[2024-11-13 07:43] VITALS: BMI 34.5
--- NOTE | 2024-11-13 07:44 | NMCV_ITS ---
NM roxie perf SPECT r/s* [id number] Bill Patel Age: 74 Gender: M : 1950 Exam Date: 11/13/2024 08:36 Ordering Phys: Maurice Del Real M.D ([email or web address]) Technologist: JUAN CARLOS Ortega Exam Location: [facility] Indications: cp STRESS TEST [facility] IMAGE PROTOCOL Rest/Stress 1 Exercise Day Radiopharmaceutical Dose (mCi) Administration Site Administered by Rest: Tc-99m 10.8 IV JUAN CARLOS Ortega Sestamibi Stress:Tc-99m 32.9 IV JUAN CARLOS Ortega Sestamibi Rest: 13-Nov-2024 60 Discovery 630 Stress: 13-Nov-2024 15 Discovery 630 Radiopharmaceutical was injected at 86 % maximum heart rate. Supine position only as patient was unable to lay still for prone. Prone imaging was attempted but there was too much motion in the image. SPECT RESULTS Technical Quality: Good Raw Data Analysis: Normal Image Corrections: No attenuation or motion correction applied Summed Stress Score: 0 Summed Rest Score: 0 Summed Difference Score: 0 PERFUSION FINDINGS SPECT images demonstrate homogeneous tracer distribution throughout the myocardium. FUNCTIONAL RESULTS (calculated via Gated SPECT) Stress Image LV EF (%): 60 Stress EDV (mL):130 TID: 0.95 Stress ESV (mL):52 FUNCTIONAL FINDINGS: There is normal left ventricular systolic function. IMPRESSIONS 1. Normal myocardial perfusion imaging with no evidence of ischemia. 2. LV systolic function is normal Maurice Del Real MD (Electronically Signed) Final Date: 13 November 2024 11:56 S
[2024-11-13 09:34] VITALS: BP 168/88; PULSE 97
== END 2024-11-13 07:28 | disposition home or self-care (01) ==
LOC: CDL 07:31
PROVIDERS: PCP Family Medicine; Visit Provider Internal Medicine
DX: R07.9 Chest pain, unspecified (principal); R06.02 Shortness of breath
CPT/HCPCS: 36415; 36416; 78452; 82962; 93017; A9500

== ENCOUNTER → 2024-11-17 11:55 | Outpatient (BNVA) | payer MEDICARE, SELFPAY | PROVIDERS: PCP Family Medicine; Visit Provider Emergency Medicine | DX: J03.80 Acute tonsillitis due to other specified organisms (principal); B96.89 Other specified bacterial agents as the cause of diseases classified elsewhere | CPT/HCPCS: 87071; 87426; 87880 ==

== ENCOUNTER → 2024-11-29 13:03 | Outpatient (BNVA) | payer MEDICARE, SELFPAY | PROVIDERS: PCP Family Medicine; Visit Provider Nurse Practitioner Family | DX: I48.91 Unspecified atrial fibrillation (principal); Z79.01 Long term (current) use of anticoagulants; I10 Essential (primary) hypertension; E78.5 Hyperlipidemia, unspecified; R07.9 Chest pain, unspecified; Z86.718 Personal history of other venous thrombosis and embolism | CPT/HCPCS: 99213 ==

== ENCOUNTER → 2025-03-26 14:17 | Outpatient (BNVA) | payer MEDICARE, SELFPAY | PROVIDERS: PCP Family Medicine; Visit Provider Physician Assistant | DX: L82.1 Other seborrheic keratosis (principal); L72.0 Epidermal cyst; Z08 Encounter for follow-up examination after completed treatment for malignant neoplasm; Z85.828 Personal history of other malignant neoplasm of skin; L57.0 Actinic keratosis; M25.569 Pain in unspecified knee | CPT/HCPCS: 17000; 20610; 73560; 73565; 99213; J3301; J9999 ==

== ENCOUNTER → 2025-04-04 08:29 | Outpatient (BNVA) | payer MEDICARE, SELFPAY | DX: E11.65 Type 2 diabetes mellitus with hyperglycemia (principal); Z79.4 Long term (current) use of insulin | CPT/HCPCS: 80053; 83036 ==

== ENCOUNTER 2025-04-12 15:50 | Outpatient (CLI) | payer MEDICARE, SELFPAY ==
--- NOTE | 2025-04-12 16:00 | USR_ITS ---
PROCEDURE INFORMATION: Exam: US Right Limited Joint or Other Non-Vascular Extremity Structure Exam date and time: 04/12/2025 3:56 PM Age: 75 years old Clinical indication: Pain; Upper arm; Right; Additional Info: right groin pain TECHNIQUE: Imaging protocol: US right limited joint or other nonvascular extremity structure. Real-time ultrasound with image documentation. Exam focused on the area of clinical interest. COMPARISON: US pelvic limited [id number] 07/26/2024 12:12 PM FINDINGS: Soft tissues: No identified inguinal hernia, images captured without and with Valsalva. Other findings: No abnormal masses or fluid collections. No identified abnormal lymph nodes. US/US soft tissue/extremity [id number] IMPRESSION: Negative exam.
== END 2025-04-12 15:51 | disposition home or self-care (01) ==
LOC: RAD 15:51
DX: K40.90 Unilateral inguinal hernia, without obstruction or gangrene, not specified as recurrent (principal)
CPT/HCPCS: 76882

== ENCOUNTER → 2025-04-14 11:25 | Outpatient (BNVA) | payer MEDICARE, SELFPAY | PROVIDERS: Visit Provider Nurse Practitioner | DX: R39.89 Other symptoms and signs involving the genitourinary system (principal); N41.0 Acute prostatitis | CPT/HCPCS: 81000 ==

== ENCOUNTER → 2025-04-23 13:32 | Outpatient (BNVA) | payer MEDICARE, SELFPAY | PROVIDERS: PCP Family Medicine; Visit Provider Podiatrist Foot & Ankle Surgery | DX: M76.72 Peroneal tendinitis, left leg (principal); E11.42 Type 2 diabetes mellitus with diabetic polyneuropathy; M20.21 Hallux rigidus, right foot; M20.22 Hallux rigidus, left foot; M20.41 Other hammer toe(s) (acquired), right foot; M20.42 Other hammer toe(s) (acquired), left foot; Z79.84 Long term (current) use of oral hypoglycemic drugs | CPT/HCPCS: 20550; 73630; 99213; J1100; J3301; J3490 ==